=== PATIENT | male | born 1940 | race Caucasian/White ===

== ENCOUNTER 2016-10-15 17:12 | Observation (INO) ==
--- NOTE | 2016-10-15 17:44 | Emergency Department Note ---
Disposition Clinical Impression: Cellulitis of leg, left, Superficial thrombophlebitis of left leg Disposition: Admitted As Inpatient Condition: Fair Referrals: Isidra Tate, [employer]AL[employer]OL [employer] TECHNICIAN [Primary Care Provider] - Forms: ED Satisfaction Letter Time of Disposition: 18:33 Extremity Problem HPI - General Chief complaint: ED Extremity Problem,Nontraumatic Stated complaint: LLE Cellulitis/Fall/Sent from Doc. Harry Time Seen by Provider: 10/15/16 17:38 Source: patient Limitations: no limitations Nursing Notes Reviewed: Yes Vital Signs Reviewed: Yes - History of Present Illness HPI Narrative: 35-year-old fell 4 days ago injuring his left leg. Also family doctor today had an x-ray of the tib-fib which showed no debris or broken bones. He's got significant swelling and redness of the leg is warm to touch. Her for [place] for cellulitis. Patient has been on outpatient antibiotics and it is getting worse. 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 Consistency: constant Injury Location: left Pain Scale: 2 Quality: aching Radiation: none Improves with: nothing Worsens with: palpation Associated symptoms: Reports: denies other symptoms - Related Data Home Medications Medication Instructions Recorded Confirmed Ergocalciferol (VITAMIN D2) 50,000 unit PO QWEEK 10/29/15 01/17/16 [Vitamin D2 (50,000 UNIT)] Folic Acid/Vit Bcomp,C [Renal-Edel 0.8 mg PO DAILY 10/29/15 01/17/16 Tablet] Furosemide [Lasix] 40 mg PO BID 10/29/15 01/17/16 Insulin Glargine [Lantus] 25 unit SQ HS 10/29/15 01/17/16 Simvastatin [Zocor] 40 mg PO HS 10/29/15 01/17/16 Thiamine Mononitrate [Vitamin B-1] 100 mg PO DAILY 10/29/15 01/17/16 Atenolol [Tenormin] 1.5 tab PO DAILY 01/17/16 01/17/16 Docusate Sodium [Stool Softener] 100 mg PO DAILY PRN 01/17/16 01/17/16 Previous Rx's Medication Instructions Recorded Ferrous Sulfate 325 mg PO BID #60 tablet 11/14/15 Allergies Allergy/AdvReac Type Severity Reaction Status Date / Time Penicillins Allergy Rash Verified 11/04/15 10:03 Sulfa (Sulfonamide Allergy Rash Verified 11/04/15 10:03 Antibiotics) acetaminophen [From Percocet] AdvReac Hallucinati Verified 11/04/15 10:03 ng Oxycodone [From Percocet] AdvReac Hallucinati Verified 11/04/15 10:03 ng All systems ED: reviewed and negative except as stated. Constitutional: Denies: fever, chills, weakness, weight change Eyes: Denies: eye pain, eye discharge, vision change ENT ED: Denies: ear pain, throat pain, dental pain, hearing loss, epistaxis, congestion, dysphagia Cardiovascular: Denies: chest pain, palpitations, dyspnea on exertion, edema, syncope Respiratory: Denies: cough, dyspnea, wheezes, hemoptysis, stridor Gastrointestinal: Denies: abdominal pain, nausea, vomiting, diarrhea, constipation, hematemesis, melena, hematochezia Genitourinary: Denies: urgency, dysuria, frequency, hematuria Musculoskeletal: Reports: arthralgia. Denies: back pain, neck pain, myalgia Integumentary: Denies: rash, abrasion, lesions Neurological: Denies: headache, weakness, numbness, paresthesias, confusion, abnormal gait, vertigo Psychiatric: Denies: anxiety, depression, suicidal thoughts, homicidal thoughts , auditory hallucinations, visual hallucinations Endocrine: Denies: fatigue Hematological/Lymphatic: Denies: easy bleeding, easy bruising Allergic/Immunologic: Denies: facial swelling, urticaria Past Medical History - Past Medical History Medical history: Reports: CHF, CVA, diabetes, dialysis, renal disease Surgical history: Reports: appendectomy, cholecystectomy, other Psychiatric history: Reports: no psych history - Social History Smoking Status: Current every day smoker Smokeless Tobacco Status: No Alcohol use: Reports: rarely, occasionally Drug use: Reports: none Physical Exam - General Limitations: no limitations General appearance: alert, in no apparent distress - Head Head exam: atraumatic, normocephalic, normal inspection - Eye Eye exam: Present: normal appearance, PERRL, EOMI - ENT ENT exam: normal exam, normal oropharynx, mucous membranes moist - Neck Neck exam: Present: normal inspection, full ROM, trachea midline - Chest Chest inspection: Present: normal inspection, symmetric chest wall rise - Respiratory Respiratory exam: Present: normal lung sounds bilaterally - Cardiovascular Cardiovascular exam: Present: regular rate, normal rhythm, normal heart sounds - Abdominal Exam Abdominal exam: Present: soft, Non-Tender. Absent: tenderness, distention, guarding, rebound, rigidity - Expanded Lower Extremity Exam Lower leg exam: Present: tenderness, swelling, erythema Neurovascular/Tendon exam: Absent: motor deficit, sensory deficit, tendon deficit Gait: observed and normal - Back Exam Back exam: Present: normal inspection, full ROM. Absent: tenderness - Neurological Exam Neurological exam: Present: alert, oriented X3 - Psychiatric Psychiatric exam: Present: normal affect, normal mood - Skin Skin exam: Present: warm, dry, intact, normal color Course - Reevaluation(s) Reevaluation #1: 75-year-old who had a fall with injury to the right leg he had some cellulitis started on antibiotics as got worse. Time: 18:33 - Consultations Consultation #1: Discussed with pharmacy recommendations obtained for vancomycin dosing at 1500 mg and they will check a level and redosed. Time: 18:29 Consultation #2: Discussed with janet Lainez. Time: 18:29 Vital Signs Temperature 98.2 F 10/15/16 17:32 Pulse Rate 78 10/15/16 17:32 Respiratory Rate 16 10/15/16 17:32 Blood Pressure 166/66 10/15/16 17:32 O2 Sat by Pulse Oximetry 95 10/15/16 17:32 Temperature 98.2 F 10/15/16 17:32 Pulse Rate 78 10/15/16 17:32 Respiratory Rate 16 10/15/16 17:32 Blood Pressure 166/66 10/15/16 17:32 O2 Sat by Pulse Oximetry 95 10/15/16 17:32 Oxygen Delivery Oxygen Delivery Room Air Extremity Problem, Nontraumati - Lab Data Result diagrams: 10/15/16 18:02 10/15/16 18:02 Lab Results 10/15/16 10/15/16 10/15/16 Range/Units 18:02 18:02 18:02 WBC 5.5 (4.3-11.1) K/mcL RBC 3.08 L (4.19-5.50) M/mcL Hgb 10.4 L (12.9-16.9) g/dL Hct 31.9 L (37.5-50.1) % MCV 103.6 H (83.0-100.0) fL MCH 33.8 H (28.0-33.3) pg MCHC 32.6 (31.6-35.5) g/dL RDW 14.6 H (11.5-14.5) % Plt Count 79 L (140-400) K/mcL MPV 10.1 (9.4-12.4) fL Immature Gran % 0.4 (0-4) % Seg Neutrophils % 72.2 % Lymphocytes % 10.7 % Monocytes % 9.1 % Eosinophils % 7.2 % Basophils % 0.4 % Neutrophils # 4.0 (1.6-8.9) K/mcL Lymphocytes # 0.6 (0.6-4.6) K/mcL Monocytes # 0.5 (0.0-1.3) K/mcL Eosinophils # 0.4 (0.0-0.6) K/mcL Basophils # 0.0 (0.0-0.2) K/mcL ESR 48 H (0-10) mm/hr Sodium 138 (136-145) mEq/L Potassium 4.3 (3.5-4.5) mEq/L Chloride 99 (98-109) mEq/L Carbon Dioxide 34 H (19-29) mEq/L BUN 23 (8-26) mg/dL Creatinine 4.34 H (0.72-1.25) mg/dL Est GFR ( Amer) 16 L (> 60) Est GFR (Non-Af Amer) 13 L (> 60) BUN/Creatinine Ratio 5 L (6-26) Glucose 222 H (70-99) mg/dL Calculated Osmolality 297 (280-300) Calcium 8.7 (8.6-10.8) mg/dL - Radiology Data Radiology results reviewed: Yes I reviewed the patient's radiology results. Venous Doppler shows a superficial thrombophlebitis
[2016-10-15 18:12] LABS: Basophils % 0.4 %; Eosinophils # 0.4 K/mcL (0.0-0.6); Eosinophils % 7.2 %; Hematocrit 31.9 % (37.5-50.1); Hemoglobin 10.4 g/dL (12.9-16.9); Immature Granulocytes % 0.4 % (0-4); Lymphocytes # 0.6 K/mcL (0.6-4.6); Lymphocytes % 10.7 %; Mean Corpuscular HGB Conc 32.6 g/dL (31.6-35.5); Mean Corpuscular Hemoglobin 33.8 pg (28.0-33.3); Mean Corpuscular Volume 103.6 fL (83.0-100.0); Mean Platelet Volume 10.1 fL (9.4-12.4); Monocytes # 0.5 K/mcL (0.0-1.3); Monocytes % 9.1 %; Red Blood Count 3.08 M/mcL (4.19-5.50); Red Cell Distribution Width 14.6 % (11.5-14.5); Segmented Neutrophils % 72.2 %
[2016-10-15 18:13] LABS: Platelet Count 79 K/mcL (140-400)
[2016-10-15 18:20] LABS: Calcium 8.7 mg/dL (8.6-10.8); Potassium 4.3 mEq/L (3.5-4.5)
[2016-10-15] MEDS ORDERED: Vancomycin 1,500 MG in D5% in Water 250 ML IVPB ONE (19:00)
--- NOTE | 2016-10-15 19:01 | Venous Imaging Report ---
LE Venous Duplex Patient Name:Ousmane Whitlock Order Number:[id number] Procedure Date:10/15/2016 Date:1940ge:75 yrs Gender:Male Location:[facility] ED Room #: ER10 Acting Instructor:Tracie Zimmerman RDCS Referring MD:Chris Doshi MD employment consultant:Chris Doshi MD Reading MD:Giuseppe Saenz MD Primary Indications:Swelling of limb Secondary Indications: Impressions: Normal left lower extremity deep venous exam. The left greater saphenous vein has acute superficial venous thrombosis. Normal contralateral common femoral vein. Recommendations: Test completed on 10/15/2016 at 6:39:00 pm. Critical findings reported to Dr Doshi in person at 6:45:00 pm on 10/15/2016 by Tracie Zimmerman RDCS. Findings Venous Duplex Results: Left: Venous imaging of the lower extremity reveals full patency and normal vessel compressibility of the left distal iliac, left common femoral, left superficial femoral, left popliteal and left posterior tibial. Doppler signals in the evaluated veins were normal. There is an occlusive thrombus seen in the left distal great saphenous. Prior Study: No prior study available for comparison. Lower Extremity Venous Duplex Side Vein Compress Spontaneous Flow Augment Diameter (cm) Depth (cm) Left Distal Iliac Normal Yes Phasic Yes Left Common Femoral Normal Yes Phasic Yes Left Superficial Femoral Normal Yes Phasic Yes Left Popliteal Normal Yes Phasic Yes Left Posterior Tibial Normal Yes Phasic Yes Left Great Saphenous None no Absent no Left Lesser Saphenous Normal Yes Phasic Yes Updated by Giuseppe Saenz MD on 10/15/2016 6:56:41 PM electronically signed on 10/15/2016 6:57:04 PM with status of Final
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
[2016-10-15] MEDS ORDERED: Naloxone 0.4 MG/ML INJ IVP PRN (23:17)
[2016-10-15] MEDS ORDERED: Ondansetron ODT 4 MG TAB.RAPDIS SL PRN (23:17)
[2016-10-15] MEDS ORDERED: Acetaminophen 325 MG TABLET PO PRN (23:17)
[2016-10-15] MEDS ORDERED: Vancomycin 1,500 MG in D5% in Water 250 ML IVPB SCH (23:45)
[2016-10-16 00:45] LABS: Basophils % 0.2 %; Eosinophils # 0.4 K/mcL (0.0-0.6); Eosinophils % 8.2 %; Hematocrit 27.5 % (37.5-50.1); Hemoglobin 8.9 g/dL (12.9-16.9); Immature Granulocytes % 0.2 % (0-4); Immature Platelets 2.9 % (1.1-6.1); Lymphocytes # 0.6 K/mcL (0.6-4.6); Lymphocytes % 11.8 %; Mean Corpuscular HGB Conc 32.4 g/dL (31.6-35.5); Mean Corpuscular Hemoglobin 33.3 pg (28.0-33.3); Mean Platelet Volume 10.2 fL (9.4-12.4); Monocytes # 0.5 K/mcL (0.0-1.3); Monocytes % 9.6 %; Neutrophils # 3.5 K/mcL (1.6-8.9); Red Blood Count 2.67 M/mcL (4.19-5.50); Red Cell Distribution Width 14.6 % (11.5-14.5)
[2016-10-16 00:48] LABS: Platelet Count 78 K/mcL (140-400)
[2016-10-16] MEDS ORDERED: *HR* Dextrose 50 % in Water (Syg) 50 ML SYRINGE IVP PRN (00:58)
[2016-10-16] MEDS ORDERED: D5% in Water 1,000 ML IVC PRN (00:58)
[2016-10-16] MEDS ORDERED: Dextrose Gel 15 GM PO PRN ×2 (00:58)
[2016-10-16] MEDS ORDERED: Cefepime HCl 1,000 MG in D5% in Water (Mini-Bag+) 100 ML IVPB SCH ×2 (06:00→14:00)
[2016-10-16] MEDS: *HR* Heparin 5,000 UNIT/ML VIAL SQ SCH ×2 (06:14→17:00)
[2016-10-16] MEDS: Insulin LISPRO 300 UNITS/3 ML VIAL SQ SCH ×3 (08:40→16:55)
[2016-10-16] MEDS ORDERED: Furosemide 40 MG TABLET PO SCH (09:45)
[2016-10-16] MEDS: Furosemide 40 MG TABLET PO SCH ×2 (10:19→17:00)
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
[2016-10-16] MEDS: Calcium Acetate 667 MG CAPSULE PO SCH ×2 (12:41→16:56)
[2016-10-16 14:40] LABS: Hemoglobin A1C 5.9 %
--- NOTE | 2016-10-16 16:34 | General Surgery Consult Note ---
<Ludy Hwang - Last Filed: 10/16/16 16:27> Date of Encounter: 10/16/16 Time of Encounter: 16:00 Assessment and Plan (1) Hematoma of left lower extremity Current Visit: Yes Status: Acute Risks, benefits, alternatives, expected outcomes reviewed with the patient has agreed to proceed to the operating room with Dr. Carreon for a evacuation of hematoma of left lower extremity and wound debridement Nothing by mouth for procedure Continue IV antibiotics- Vancomycin and Cefipime We will continue to follow further wound care recommendations Patient will need outpatient follow-up and wound care when ready for discharge Qualifiers: Encounter type: initial encounter Qualified Code(s): S80.12XA - Contusion of left lower leg, initial encounter (2) Cellulitis of leg, left Current Visit: Yes Status: Acute IV antibiotics- Vancomycin and Cefepime Evacuation of the hematoma and would debridement today with Dr. 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 Whitlock is a very pleasant 75 year old male with multiple comorbidities. He reports to the hospital with pain and increasing redness to his LLE after a recent fall. He states that he fell off of his porch approximately 1 week ago. He had an abrasion on his LLE and developed a hematoma at that time. He states that he fell approximately 2 feet. His has been dressing the wound daily. She states that it drained a small amount of blood for a few days but that this has stopped. She reports that the LLE has become increasingly tender and erythematous over the past few days. The patient states that he does have numbness to his LLE but that this is chronic for him due to his neuropathy. He denies any fevers/chills. Denies any syncope, dizziness, chest pain, or shortness of breath. We have been asked to see and evaluate the patient for recommendations for treatment. Past Med Surg Social Fam HX - Past Medical History Source: patient, old records reviewed Medical history: cardiomyopathy, CHF, coronary artery disease, CVA, diabetes ( Type 2), dialysis, hyperlipidemia, hypertension, myocardial infarction, renal disease (ESRD), other (sleep apnea, lung nodule, neuropathy, legally blind) Psychiatric history: no psych history - Past Surgical History Surgical History: appendectomy, cholecystectomy, orthopedic, other (right rotator cuff repair), other (multiple colonoscopies, fistula to left arm for dialysis) - Social History Smoking Status: Current every day smoker Smokeless Tobacco Status: No Alcohol use: rarely Drug use: none - Family History Mother Hx Family Endocrine Disorder: Yes (diabetes) Hx Family Neurologic Disorders: Yes (stroke and alzheimer) Medications and Allergies Folic Acid/Vit Bcomp,C [Renal-Edel Tablet] 0.8 mg PO DAILY 10/29/15 [History] Furosemide [Lasix] 40 mg PO AD 10/29/15 [History] Insulin Glargine [Lantus] 12 unit SQ HS 10/29/15 [History] Simvastatin [Zocor] 40 mg PO HS 10/29/15 [History] Calcium Acetate [Phos-LO] 1,334 mg PO TIDWM 10/15/16 [History] Insulin LISPRO [HumaLOG] 0 unit SQ TIDWM 10/15/16 [History] cephALEXin [Keflex] 500 mg PO TID 10/15/16 [History] Allergies Penicillins Allergy (Verified 11/04/15 10:03) Rash Sulfa (Sulfonamide Antibiotics) Allergy (Verified 11/04/15 10:03) Rash acetaminophen [From Percocet] Adverse Reaction (Verified 11/04/15 10:03) Hallucinating Oxycodone [From Percocet] Adverse Reaction (Verified 11/04/15 10:03) Hallucinating Review of Systems All systems PM: reviewed and no additional remarkable complaints except as stated (in the HPI) All systems PM: A 10-system review of systems was performed and is negative for pertinent findings except as documented above in the HPI. General Surgery Exam Initial Vital Signs Temp Pulse Resp BP Pulse Ox 98.2 F 78 16 166/66 95 10/15/16 17:32 10/15/16 17:32 10/15/16 17:32 10/15/16 17:32 10/15/16 17:32 - General physical appearance well developed, well nourished, no distress, moderate pain (LLE) - Eyes PERRL - ENT normal mucosa, atraumatic, normocephalic - Neck trachea midline - Respiratory normal respiratory effort, clear to auscultation - Cardiovascular Cardiovascular exam: Present: RRR - Abdomen Abdomen general surgery: Present: bowel sounds present, soft, non tender - Integumentary Integumentary general surgery: Present: warm and dry, other (LLE with hematoma noted with surrounding cellulitis/erythema, necrotic skin noted over hematoma, skin warm to touch, tender to evaluation) - Neurologic Present: CN 2-12 grossly intact - Psychiatric Psychiatric general surgery: Present: appropriate, oriented to person, oriented to place, oriented to time, speech is normal, memory intact Exam Initial Vital Signs Temp Pulse Resp BP Pulse Ox 98.2 F 78 16 166/66 95 10/15/16 17:32 10/15/16 17:32 10/15/16 17:32 10/15/16 17:32 10/15/16 17:32 Results - Labs 10/16/16 00:27 10/15/16 18:02 Abnormal lab results RBC 2.67 M/mcL (4.19-5.50) L 10/16/16 00:27 Hgb 8.9 g/dL (12.9-16.9) L D 10/16/16 00:27 Hct 27.5 % (37.5-50.1) L 10/16/16 00:27 MCV 103.0 fL (83.0-100.0) H 10/16/16 00:27 RDW 14.6 % (11.5-14.5) H 10/16/16 00:27 Plt Count 78 K/mcL (140-400) L 10/16/16 00:27 ESR 48 mm/hr (0-10) H 10/15/16 18:02 Carbon Dioxide 34 mEq/L (19-29) H 10/15/16 18:02 Creatinine 4.34 mg/dL (0.72-1.25) H 10/15/16 18:02 Est GFR ( Amer) 16 (> 60) L 10/15/16 18:02 Est GFR (Non-Af Amer) 13 (> 60) L 10/15/16 18:02 BUN/Creatinine Ratio 5 (6-26) L 10/15/16 18:02 Glucose 222 mg/dL (70-99) H 10/15/16 18:02 POC Glucose 140 (58-89) H 10/16/16 11:25 Hemoglobin A1c 5.9 % (-5.6) H 10/16/16 00:27 Diabetes panel 10/16/16 Range/Units 00:27 Hemoglobin A1c 5.9 H ( - 5.6) % All other labs normal. - Imaging Additional studies: Lower Extremity CT 10/16/16 23:28 IMPRESSION: Circumferential superficial soft tissue edema in the left leg. Areas of blood products and developing hematomas in the anterior superficial soft tissues of the leg. The areas of superficial soft tissue blood products measures 18 cm in craniocaudal dimension with the largest component measuring up to 6.4 x 5 x 2 cm. No intramuscular fluid collection. No acute osseous abnormality. D/ / 10/16/2016 08:09:14 Tejas Yepez MD / jagruti Interpreting Provider: Tejas Yepez MD Consult Discharge Plan - Plan Referrals: Isidra Tate, INTEGRATED PEST MANAGEMENT TECHNICIAN [Primary Care Provider] - - Attending Attestation I examined this patient and my medical decision-making was reviewed with the PLUGGER MAN/PA/Advanced Practice Nurse/Resident Physician. I agree with the documented findings, disposition and treatment plan as described except to the extent set forth below. <Aamir Carreon - Last Filed: 10/16/16 21:49> Date of Encounter: 10/16/16 Review of Systems All systems PM: A 10-system review of systems was performed and is negative for pertinent findings except as documented above in the HPI. General Surgery Exam Initial Vital Signs Temp Pulse Resp BP Pulse Ox 98.2 F 78 16 166/66 95 10/15/16 17:32 10/15/16 17:32 10/15/16 17:32 10/15/16 17:32 10/15/16 17:32 Exam Initial Vital Signs Temp Pulse Resp BP Pulse Ox 98.2 F 78 16 166/66 95 10/15/16 17:32 10/15/16 17:32 10/15/16 17:32 10/15/16 17:32 10/15/16 17:32 Results - Labs 10/16/16 00:27 10/15/16 18:02 Abnormal lab results RBC 2.67 M/mcL (4.19-5.50) L 10/16/16 00:27 Hgb 8.9 g/dL (12.9-16.9) L D 10/16/16 00:27 Hct 27.5 % (37.5-50.1) L 10/16/16 00:27 MCV 103.0 fL (83.0-100.0) H 10/16/16 00:27 RDW 14.6 % (11.5-14.5) H 10/16/16 00:27 Plt Count 78 K/mcL (140-400) L 10/16/16 00:27 ESR 48 mm/hr (0-10) H 10/15/16 18:02 Carbon Dioxide 34 mEq/L (19-29) H 10/15/16 18:02 Creatinine 4.34 mg/dL (0.72-1.25) H 10/15/16 18:02 Est GFR ( Amer) 16 (> 60) L 10/15/16 18:02 Est GFR (Non-Af Amer) 13 (> 60) L 10/15/16 18:02 BUN/Creatinine Ratio 5 (6-26) L 10/15/16 18:02 Glucose 222 mg/dL (70-99) H 10/15/16 18:02 POC Glucose 172 (58-89) H 10/16/16 16:25 Hemoglobin A1c 5.9 % (-5.6) H 10/16/16 00:27 Diabetes panel 10/16/16 Range/Units 00:27 Hemoglobin A1c 5.9 H ( - 5.6) % All other labs normal. - Attending Attestation The patient is seen and evaluated with the clinical nurse practitioner. He has complex hematoma secondary to trauma and coagulopathy secondary to end-stage renal disease and chronic dialysis. The overlying skin is beginning to necrosis and he will require evacuation of hematoma in the main operating room later tonight. Aamir Carreon MD FACS
--- NOTE | 2016-10-16 16:53 | Internal Med Progress Note ---
<TamraannaliseRomeo castaneda - Last Filed: 10/16/16 16:49> Date of Encounter: 10/16/16 Time of Encounter: 09:30 - Assessment and plan (1) Cellulitis of leg, left Current Visit: Yes Status: Acute Assessment and plan: - Patient is afebrile, white blood cell count of 5.0 - Lactic acid of 0.6 - Wound and blood cultures pending - LRINEC score 5 - CT scan revealed off tissue swelling circumferentially, and area of blood products extending for 18 cm. - Patient is currently receiving cefepime 1 g and vancomycin - Surgery was consulted for possibility of abscess, hematoma. Plan for hematoma evacuation and debridement. (2) Hematoma of left lower extremity Current Visit: Yes Status: Acute Assessment and plan: - As above, surgery is planning to evacuate hematoma - H&H stable, 8.1/27.5 - MCV was elevated, indicating a macrocytic anemia - Patient will be given folic acid Qualifiers: Encounter type: initial encounter Qualified Code(s): S80.12XA - Contusion of left lower leg, initial encounter (3) ESRD (end stage renal disease) on dialysis Current Visit: Yes Status: Chronic Assessment and plan: Patient receives Thursday dialysis - BUN/creatinine of 23/4.34 - Nephrology has been consulted (4) Diabetes mellitus Current Visit: Yes Status: Chronic Assessment and plan: - A1c pending, most recent in October 2015 was 6.9 - Glucose this a.m. 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 - We will complete dialysis tomorrow Qualifiers: Hypertension type: essential hypertension Qualified Code(s): I10 - Essential (primary) hypertension (6) Thrombocytopenia Current Visit: No Status: Chronic Assessment and plan: - Platelet count of 78 this morning, was 80 and emergency room - We will continue to monitor and replenish if needed. - Time Spent With Patient Greater than 35 minutes - Subjective Interval history: Patient seen and examined at bedside this morning. He states that his leg is feeling fine, with no pain. He does admit to having to decrease sensation over the area due to his diabetic neuropathy. He does admit to some warmth in the area. He does not notice any drainage. He is denying any symptoms of fever, chills, abdominal pain, nausea, vomiting, chest pain, shortness of breath. - Constitutional Vitals: Temp Pulse Resp BP Pulse Ox 98.2 F 82 16 162/75 91 10/16/16 16:23 10/16/16 16:23 10/16/16 16:23 10/16/16 16:23 10/16/16 16:23 Exam: Gen.: Vitals noted. No acute distress. AAOx3 HEENT: Legally blind with poor eye contact. PERRL/EOMI, oropharynx clear, Normocephalic, atraumatic Neck: Supple. No adenopathy. Cardiac: RRR, no murmur, +S1/S2 Pulmonary: CTA bilaterally, no wheezes, rales or rhonchi, equal chest expansion Abdomen: soft, nontender, BS noted, no guarding Back: Nontender throughout. MSK: ROM intact, no joint swelling noted Extremities: Marked erythema, warmth, edema of left lower extremity extending from proximal tibia to ankle. Multiple lacerations without drainage. Erythema is receding from previous marked border. no BLE edema, nontender calf, no cyanosis or clubbing Neuro: A&Ox3, moves all extremities, no focal deficits Psych: Appropriate mood and behavior Internal Medicine: Result - Labs CBC & Chem 7: 10/16/16 00:27 10/15/16 18:02 Labs: Short CBC 10/16/16 Range/Units 00:27 WBC 5.0 (4.3-11.1) K/mcL Hgb 8.9 L D (12.9-16.9) g/dL Hct 27.5 L (37.5-50.1) % Plt Count 78 L (140-400) K/mcL Neutrophils # 3.5 (1.6-8.9) K/mcL - Impressions Impressions Lower Extremity CT 10/16/16 23:28 IMPRESSION: Circumferential superficial soft tissue edema in the left leg. Areas of blood products and developing hematomas in the anterior superficial soft tissues of the leg. The areas of superficial soft tissue blood products measures 18 cm in craniocaudal dimension with the largest component measuring up to 6.4 x 5 x 2 cm. No intramuscular fluid collection. No acute osseous abnormality. D/ /16/2016 08:09:14 Tejas Yepez MD / jagruti Interpreting Provider: Tejas Yepez MD Consult Discharge Plan - Plan Referrals: Isidra Tate CNP [Primary Care Provider] - <Feliciano Trammell - Last Filed: 10/16/16 17:11> Date of Encounter: 10/16/16 - Constitutional Vitals: Temp Pulse Resp BP Pulse Ox 98.2 F 82 16 162/75 91 10/16/16 16:23 10/16/16 16:23 10/16/16 16:23 10/16/16 16:23 10/16/16 16:23 Internal Medicine: Result - Labs CBC & Chem 7: 10/16/16 00:27 10/15/16 18:02 Labs: Short CBC 10/16/16 Range/Units 00:27 WBC 5.0 (4.3-11.1) K/mcL Hgb 8.9 L D (12.9-16.9) g/dL Hct 27.5 L (37.5-50.1) % Plt Count 78 L (140-400) K/mcL Neutrophils # 3.5 (1.6-8.9) K/mcL - Impressions Impressions Lower Extremity CT 10/16/16 23:28 IMPRESSION: Circumferential superficial soft tissue edema in the left leg. Areas of blood products and developing hematomas in the anterior superficial soft tissues of the leg. The areas of superficial soft tissue blood products measures 18 cm in craniocaudal dimension with the largest component measuring up to 6.4 x 5 x 2 cm. No intramuscular fluid collection. No acute osseous abnormality. D/ / 10/16/2016 08:09:14 Tejas Yepez MD / jagruti Interpreting Provider: Tejas Yepez MD - Attending Attestation I examined this patient and my medical decision-making was reviewed with the Resident Physician on 10/16/16. I agree with the documented findings, disposition and treatment plan as described except to the extent set forth below. 75 M with legal blindness, DM, complicated with retinopathy, nephropathy, neuropathy, ESRD on HD, admitted for LLE cellulitis with abscess/hematoma following trauma Seen and evaluated at bedside with no new complains Physical exam: VSS. Left lower extremity with redness from the knee up to the ankle, fluctuancy and softness in the center extending to the ankle, obvious hyperpigmentation of skin due to hematoma and visible entry wounds. Left dorsalis pedis is present Labs and Imaging reviewed: Chronic macrocytic anemia, no leukocytosis, chronic thrombocytopenia, Doppler of LE with superficial venous thrombosis of great saphenous vein, Lower L extremity CT with 18cm collection-hematoma/blood products A/P: cellulitis with suspected abscess and hematoma-continue vanco and cefepime , consult surgery for possible drainage, follow blood culture, and resume home meds. No indication for treatment for superficial venous thrombosis. HD as scheduled by renal Fall precautions, patient is legally blind Rest of details as in residents documentation.
--- NOTE | 2016-10-16 19:00 | Anesthesia Evaluation PreOp ---
Date of Encounter: 10/16/16 Time of Encounter: 18:58 - Past History Planned Operation: I&D LLE Cardiac History: DE, CHF (cardiomyopathy. pt has h/o chf, nl echo 18 mos ago, mild bilat le edema, +systolic murmur), HTN, Hyperlipidemia, Other ( thrombocytopenia, anemia. 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 History: CVA ("a long time ago" never saw md, mild numbness in r cheek, resolved), Other (neuropathy, legally blind, severe bilat le periph neuropathy, able to ambulate with walker) Other Medical History: Renal (esrd, dialysis m/w/f), Diabetes Type II Anesthesia History: No Prior Anesthetic Complications, Past Anesthesia (r shoulder arth, lue fistula, appy, cholecyst) Alcohol Use: rarely Drug use: none Medications and Allergies Folic Acid/Vit Bcomp,C [Renal-Edel Tablet] 0.8 mg PO DAILY 10/29/15 [History] Furosemide [Lasix] 40 mg PO AD 10/29/15 [History] Insulin Glargine [Lantus] 12 unit SQ HS 10/29/15 [History] Simvastatin [Zocor] 40 mg PO HS 10/29/15 [History] Calcium Acetate [Phos-LO] 1,334 mg PO TIDWM 10/15/16 [History] Insulin LISPRO [HumaLOG] 0 unit SQ TIDWM 10/15/16 [History] cephALEXin [Keflex] 500 mg PO TID 10/15/16 [History] Allergies Penicillins Allergy (Verified 11/04/15 10:03) Rash Sulfa (Sulfonamide Antibiotics) Allergy (Verified 11/04/15 10:03) Rash acetaminophen [From Percocet] Adverse Reaction (Verified 11/04/15 10:03) Hallucinating Oxycodone [From Percocet] Adverse Reaction (Verified 11/04/15 10:03) Hallucinating - Meds/Allergy Pre-op Review Medications Reviewed: Yes (cefepime at 1546, dosed q24) Allergies Reviewed: Yes Beta Blockers on Current Med List: Yes (atenolol listed on home meds in 07/21) Anesthesia Results - Labs 10/16/16 00:27 10/15/16 18:02 - Imaging EKG: report reviewed (sb,lvh 10/19) Anesthesia Exam Vital Signs/O2 Sat/Glucose, Most Current Temp Pulse Resp BP Pulse Ox 10/16/16 16:23 98.2 F 82 16 162/75 91 Blood glucose: 172 (at 16:23) Height: 1.77 Weight: 96 NPO (# of Hours): >8 - HEENT Pupil (Motor): Pupils equal, EOMI Mallampati: III Teeth: Edentulous Oral Opening: Greater than 3 - HEALTH INFORMATION CLERK LOC: Oriented HEALTH INFORMATION CLERK Motor: Deficit RUE, Deficit LUE, Deficit RLE, Deficit LLE, Deficit Face HEALTH INFORMATION CLERK Sensory: Deficit: RUE, LUE, RLE, LLE, Face - Cardiac Rhythm: Regular Murmur: Systolic JVD: No Carotid Bruit: No - Pulmonary Breath Sounds: bilateral Clear Respiratory Effort: Symmetrical Anesthesia Assess/Plan ASA Score: 4 (minimize iv fluid, min narcotic, pt already on abx,) Modified [place] Scale for Level of Consciousness: Cooperative, oriented, and tranquil Anesthetic Plan: General Monitoring Plan: Standard Monitors Recovery Plan: PACU
[2016-10-16] MEDS ORDERED: *HR* HYDROmorphone (PF) 1 MG/ML SYRINGE IVP PRN (20:23)
[2016-10-16] MEDS ORDERED: *HR* FentaNYL (PF) 100 MCG/2 ML VIAL ONE (20:29)
[2016-10-16] MEDS ORDERED: *HR* Propofol 200 MG/20 ML VIAL IVP ONE (20:29)
[2016-10-16] MEDS ORDERED: 0.9 % Sodium Chloride 1,000 ML IVC SCH (20:30)
[2016-10-16] MEDS ORDERED: Lidocaine -MPF 2% 2 ML VIAL ONE (20:31)
[2016-10-16] MEDS ORDERED: Dexamethasone 4 MG/ML VIAL ONE (20:53)
[2016-10-16] MEDS ORDERED: Ondansetron 4 MG/2 ML VIAL ONE (20:53)
[2016-10-16] MEDS ORDERED: Insulin DETEMIR 100 UNIT/ML X5UNITS SQ SCH ×2 (21:00)
[2016-10-16] MEDS ORDERED: Insulin LISPRO 300 UNITS/3 ML VIAL SQ SCH (21:00)
--- NOTE | 2016-10-16 21:18 | Operative Note ---
Date of procedure: 10/16/16 Pre-op diagnosis: Hematoma left lower extremity Post-op diagnosis: same Procedure: Evacuation of hematoma left lower extremity Anesthesia: JOSE F Surgeon: Aamir Carreon Estimated blood loss (cc): 50 Specimen: Hematoma Condition: stable Disposition: PACU Procedure in Detail: After informed consent patient was taken major operating suite placed in supine position given adequate general anesthetic. The left lower extremity was circumferentially prepped and draped in sterile fashion utilizing Betadine solution and standard draping techniques. Timeout was taken and the lateralizing mikey identified. Using a #15 blade I opened directly in the upper hematoma. I removed an enormous amount of subcutaneous hematoma. This was completely evacuated. The hematoma cavity was at least 14 cm x 7 cm in size. There was a secondary hematoma cavity above the lateral malleolus. I made a secondary incision above this hematoma and entered into a 10 cm x 5 cm cavity full of organizing hematoma. This was completely evacuated. Both wounds were irrigated with copious amount of antibiotic containing solution. Both wounds were packed with iodoform and a compression dressing was used for hemostasis.
--- NOTE | 2016-10-16 21:52 | Anesthesia Evaluation Post Op ---
Date of Encounter: 10/16/16 Time of Encounter: 21:51 - Vital Signs Vital Signs: Vital Signs/O2 Sat/Glucose, Most Current Temp Pulse Resp BP Pulse Ox 10/16/16 21:49 99.0 F 77 18 145/66 96 10/16/16 21:39 79 18 144/73 93 10/16/16 21:29 81 16 151/74 93 10/16/16 21:19 98.8 F 80 16 139/66 93 - Lungs Lungs: Clear Ascult./Percussion - Airway Airway: Non-obstructed - Cardiovascular Regular Rate - Mental Status Mental Status: Alert & Oriented, Answers Appropriately - Pain Pain Scale: 0 - Nausea Vomiting Nausea Vomiting: Not Present - Hydration Hydration: Ice chips - Discharge PostOp Status: Transfer Patient to floor
[2016-10-17] MEDS ORDERED: D5% in Water 1,000 ML IVC PRN (02:44)
[2016-10-17] MEDS ORDERED: Dextrose Gel 15 GM PO PRN ×2 (02:44)
[2016-10-17] MEDS ORDERED: Ondansetron ODT 4 MG TAB.RAPDIS SL PRN (02:44)
[2016-10-17] MEDS ORDERED: *HR* HYDROmorphone (PF) 1 MG/ML SYRINGE IVP PRN (02:44)
[2016-10-17] MEDS ORDERED: 0.9 % Sodium Chloride 1,000 ML IVC SCH (02:44)
[2016-10-17] MEDS ORDERED: *HR* Dextrose 50 % in Water (Syg) 50 ML SYRINGE IVP PRN (02:44)
[2016-10-17] MEDS ORDERED: Acetaminophen 325 MG TABLET PO PRN (02:44)
[2016-10-17] MEDS ORDERED: Naloxone 0.4 MG/ML INJ IVP PRN (02:44)
[2016-10-17] MEDS: *HR* Heparin 5,000 UNIT/ML VIAL SQ SCH ×2 (05:42→18:22)
[2016-10-17 06:30] LABS: Hemoglobin 9.2 g/dL (12.9-16.9); Immature Platelets 3.6 % (1.1-6.1); Mean Corpuscular HGB Conc 31.7 g/dL (31.6-35.5); Mean Corpuscular Hemoglobin 33.5 pg (28.0-33.3); Mean Corpuscular Volume 105.5 fL (83.0-100.0); Mean Platelet Volume 10.4 fL (9.4-12.4); Red Blood Count 2.75 M/mcL (4.19-5.50); Red Cell Distribution Width 14.5 % (11.5-14.5)
[2016-10-17 06:37] LABS: Calcium 8.6 mg/dL (8.6-10.8); Potassium 5.4 mEq/L (3.5-4.5)
[2016-10-17] MEDS ORDERED: 0.9 % Sodium Chloride 250 ML IVC PRN (08:33)
[2016-10-17] MEDS ORDERED: 0.9 % Sodium Chloride 1,000 ML PRIME SCH (08:45)
[2016-10-17] MEDS ORDERED: 0.9 % Sodium Chloride 2,000 ML ONE (09:00)
[2016-10-17] MEDS ORDERED: Renal Vitamin 1 MG CAPSULE PO SCH (09:00)
--- NOTE | 2016-10-17 09:14 | General Surgery Progress Note ---
<Ludy Hwang Maikel - Last Filed: 10/17/16 09:12> Date of Encounter: 10/17/16 Time of Encounter: 09:00 - Assessment and Plan (1) Hematoma of left lower extremity Current Visit: Yes Status: Acute POD #1 Evacuation of LLE hematoma X [address] a wound vac to LLE today family services worker consulted for wound vac approval and home health care Renal Diet Continue IV antibiotics- Vancomycin and Cefipime (no cultures obtained- no purulent component to fluid collections which were evacuated) May discharge from a surgical standpoint when medically ready Patient will need outpatient follow-up and wound care when ready for discharge Surgery will sign off at this time. Thank you for allowing us to participate in the care of this patient. Please call with any further questions or concerns. Qualifiers: Encounter type: initial encounter Qualified Code(s): S80.12XA - Contusion of left lower leg, initial encounter (2) Cellulitis of leg, left Current Visit: Yes Status: Acute IV antibiotics- Vancomycin and Cefepime- management per hospitalist POD #1 evacuation of hematoma X 2 (3) Thrombocytopenia Current Visit: No Status: Chronic Platelets- 78>77 Continue to monitor (4) ESRD (end stage renal disease) on dialysis Current Visit: Yes Status: Chronic Renal following Dialysis every MWF (5) Diabetes mellitus Current Visit: Yes Status: Chronic Management per medicine service Most recent Hemoglobin A1C- 5.9 Qualifiers: Diabetes mellitus type: type 2 Diabetes mellitus complication status: with kidney complications Diabetes mellitus complication detail: with chronic kidney disease Diabetes mellitus usp insulin use: with continuous churn buttermaker use Chronic kidney disease stage: on chronic dialysis Qualified Code(s): E11.22 - Type 2 diabetes mellitus with diabetic chronic kidney disease; N18.6 - End stage renal disease; Z79.4 - senior care (current) use of insulin; Z99.2 - Dependence on renal dialysis Subjective Patient reports: no new complaints, feels better, pain is less, tolerating a regular diet, afebrile Objective Vital Signs - Last 8 Hours Temp Pulse Resp BP Pulse Ox 10/17/16 07:49 98 F 74 20 148/68 96 10/17/16 04:33 98.4 F 68 17 128/62 95 10/17/16 03:34 73 16 132/71 95 10/17/16 02:10 76 16 154/68 95 Intake and Output 07/13/17 07/14/17 07/14/17 23:59 07:59 15:59 Intake Total 0 / 0 350 / 350 380 / 380 Output Total 50 / 50 Balance -50 / -50 350 / 350 380 / 380 Intake: Oral 0 / 0 350 / 350 380 / 380 Output: Estimated Blood Loss 50 / 50 Other: Meal NPO Breakfast Percent of Meal Consumed 0% 100% Weight 96.2 kg Blood Glucose* 139 173 Patient Weight 10/17/16 23:59 Weight 96.2 kg - General physical appearance well developed, well nourished, no distress, chronically ill - Eyes PERRL - ENT normal mucosa, atraumatic, normocephalic - Neck Neck exam: trachea midline - Respiratory normal respiratory effort, clear to auscultation - Cardiovascular Cardiovascular exam: Present: RRR - Abdomen Abdomen: Present: bowel sounds present, soft, non tender - Incision Incision: Present: erythema (improved), serosanguinous (moderate amount), open - Neurologic CN 2-12 grossly intact, other (severe neuropathy of bilateral lower extremities) - Psychiatric oriented to time, oriented to person, oriented to place, speech is normal, memory intact - Labs 10/17/16 05:50 10/17/16 05:50 Diabetes panel 10/16/16 10/17/16 Range/Units 00:27 05:50 Sodium 135 L (136-145) mEq/L Potassium 5.4 H D (3.5-4.5) mEq/L Chloride 99 (98-109) mEq/L Carbon Dioxide 23 (19-29) mEq/L BUN 44 H D (8-26) mg/dL Creatinine 6.32 H (0.72-1.25) mg/dL Glucose 185 H (70-99) mg/dL Hemoglobin A1c 5.9 H ( - 5.6) % Calcium 8.6 (8.6-10.8) mg/dL Calcium panel 10/17/16 Range/Units 05:50 Calcium 8.6 (8.6-10.8) mg/dL Pituitary panel 10/17/16 Range/Units 05:50 Sodium 135 L (136-145) mEq/L Potassium 5.4 H D (3.5-4.5) mEq/L Chloride 99 (98-109) mEq/L Carbon Dioxide 23 (19-29) mEq/L BUN 44 H D (8-26) mg/dL Creatinine 6.32 H (0.72-1.25) mg/dL Glucose 185 H (70-99) mg/dL Calcium 8.6 (8.6-10.8) mg/dL Adrenal panel 10/17/16 Range/Units 05:50 Sodium 135 L (136-145) mEq/L Potassium 5.4 H D (3.5-4.5) mEq/L Chloride 99 (98-109) mEq/L Carbon Dioxide 23 (19-29) mEq/L BUN 44 H D (8-26) mg/dL Creatinine 6.32 H (0.72-1.25) mg/dL Glucose 185 H (70-99) mg/dL Calcium 8.6 (8.6-10.8) mg/dL - VTE Documentation of Mechanical Device: Intermittent pneumatic compression device Consult Discharge Plan - Plan Additional Instructions: Change Wound vac to LLE every M-W- (medium black foam to 125mmHG continuous suction) Referrals: Isidra Tate CNP [Primary Care Provider] - Aamir Carreon MD [Partnered Physician] - ([place] [facility] [phone] Will need a 2 week follow-up for management of LLE wounds) - Attending Attestation I have personally performed a face to face evaluation on this patient. I have reviewed and agree with the care plan. History and Exam by me shows: <Aamir Carreon - Last Filed: 10/17/16 17:22> Date of Encounter: 10/17/16 Objective Vital Signs - Last 8 Hours Temp Pulse Resp BP Pulse Ox 10/17/16 16:38 98.1 F 74 20 134/67 95 10/17/16 13:10 98.0 F 14 132/56 10/17/16 13:00 132/65 10/17/16 12:45 127/67 10/17/16 12:30 123/67 10/17/16 12:15 130/60 10/17/16 12:00 137/72 10/17/16 11:45 142/74 10/17/16 11:30 133/64 10/17/16 11:15 131/60 10/17/16 11:00 126/66 10/17/16 10:45 133/65 10/17/16 10:30 138/65 10/17/16 10:15 132/64 10/17/16 10:00 137/63 10/17/16 09:45 135/77 10/17/16 09:30 98.0 F 14 141/74 96 Intake and Output 10/17/16 10/17/16 10/17/16 07:59 15:59 23:59 Intake Total 350 / 350 980 / 980 Output Total 3600 / 3600 Balance 350 / 350 -2620 / -2620 Intake: Oral 350 / 350 380 / 380 Intake, Rinseback and 600 / 600 Flushes Output: Urine 0 / 0 Total Dialysis (HD) 3600 / 3600 Output Other: Meal Breakfast Percent of Meal Consumed 100% Weight 96.2 kg 96.2 kg Blood Glucose* 173 127 261 Hemodialysis Net Fluid 3000 Removed (mL) Patient Weight 10/17/16 23:59 Weight 96.2 kg - Labs 10/17/16 05:50 10/17/16 05:50 Diabetes panel 10/17/16 Range/Units 05:50 Sodium 135 L (136-145) mEq/L Potassium 5.4 H D (3.5-4.5) mEq/L Chloride 99 (98-109) mEq/L Carbon Dioxide 23 (19-29) mEq/L BUN 44 H D (8-26) mg/dL Creatinine 6.32 H (0.72-1.25) mg/dL Glucose 185 H (70-99) mg/dL Calcium 8.6 (8.6-10.8) mg/dL Calcium panel 10/17/16 Range/Units 05:50 Calcium 8.6 (8.6-10.8) mg/dL Pituitary panel 10/17/16 Range/Units 05:50 Sodium 135 L (136-145) mEq/L Potassium 5.4 H D (3.5-4.5) mEq/L Chloride 99 (98-109) mEq/L Carbon Dioxide 23 (19-29) mEq/L BUN 44 H D (8-26) mg/dL Creatinine 6.32 H (0.72-1.25) mg/dL Glucose 185 H (70-99) mg/dL Calcium 8.6 (8.6-10.8) mg/dL Adrenal panel 10/17/16 Range/Units 05:50 Sodium 135 L (136-145) mEq/L Potassium 5.4 H D (3.5-4.5) mEq/L Chloride 99 (98-109) mEq/L Carbon Dioxide 23 (19-29) mEq/L BUN 44 H D (8-26) mg/dL Creatinine 6.32 H (0.72-1.25) mg/dL Glucose 185 H (70-99) mg/dL Calcium 8.6 (8.6-10.8) mg/dL - Attending Attestation The patient is seen and evaluated on the floor. Negative pressure wound therapy is appropriate at this point I would be glad to follow up with the patient in wound care. Aamir Carreon MD FACS
[2016-10-17] MEDS: Insulin LISPRO 300 UNITS/3 ML VIAL SQ SCH ×4 (09:45→21:35)
[2016-10-17] MEDS: Renal Vitamin 1 MG CAPSULE PO SCH (09:50)
[2016-10-17] MEDS: Calcium Acetate 667 MG CAPSULE PO SCH ×3 (09:50→18:02)
--- NOTE | 2016-10-17 11:27 | Nephrology Progress Note ---
Date of Encounter: 10/17/16 Time of Encounter: 11:24 - Assessment and Plan (1) Cellulitis of leg, left Current Visit: Yes Status: Acute Per primary team. S/p I&D. Pain is controlled. (2) ESRD (end stage renal disease) on dialysis Current Visit: Yes Status: Chronic HD MWF. Patient seen on HD. Renal diet. Adjust medications for renal function. (3) Hypertension Current Visit: Yes Status: Chronic Blood pressure is controlled. Qualifiers: Hypertension type: essential hypertension Qualified Code(s): I10 - Essential (primary) hypertension (4) Anemia Current Visit: No Status: Acute Monitor hemoglobin. Transfuse as needed. Qualifiers: Anemia type: unspecified type Qualified Code(s): D64.9 - Anemia, unspecified Subjective Principal diagnosis: ESRD Interval history: Patient seen on dialysis. He has no new complaint. His pain is controlled. His review of systems otherwise is negative or stable. Objective - Vital Signs Vital signs: Vital Signs Temp Pulse Resp BP Pulse Ox 10/17/16 09:30 96 10/17/16 07:49 98 F 74 20 148/68 96 10/17/16 04:33 98.4 F 68 17 128/62 95 10/17/16 03:34 73 16 132/71 95 10/17/16 02:10 76 16 154/68 95 10/17/16 01:10 77 16 155/75 95 10/17/16 00:14 98.2 F 78 16 142/71 92 10/17/16 00:10 20 145/74 96 10/16/16 23:47 95 10/16/16 23:40 75 20 150/69 94 10/16/16 23:09 81 15 150/67 92 10/16/16 22:50 79 15 145/64 93 10/16/16 22:37 84 15 141/69 92 10/16/16 22:20 82 15 153/70 93 10/16/16 21:49 99.0 F 77 18 145/66 96 10/16/16 21:39 79 18 144/73 93 10/16/16 21:29 81 16 151/74 93 10/16/16 21:19 98.8 F 80 16 139/66 93 10/16/16 16:23 98.2 F 82 16 162/75 91 Intake and Output 0710/17/16 10/17/16 23:59 07:59 15:59 Intake Total 0 / 0 350 / 350 380 / 380 Output Total 50 / 50 0 / 0 Balance -50 / -50 350 / 350 380 / 380 Intake: Oral 0 / 0 350 / 350 380 / 380 Output: Urine 0 / 0 Estimated Blood Loss 50 / 50 Other: Meal NPO Breakfast Percent of Meal Consumed 0% 100% Weight 96.2 kg Blood Glucose* 139 173 Patient Weight 10/17/16 23:59 Weight 96.2 kg - General Appearance General appearance: Present: well-developed, well-nourished EENT: Present: ATNC Neck: Present: supple Additional Comments: Respirations are unlabored. Cardiology: Present: regular rate Dialysis Vascular Access: Arteriovenous Fistula Neurologic: Present: alert and oriented x3 Psychiatric: Present: mood/affect appropriate - Lab 10/17/16 05:50 10/17/16 05:50 Most recent lab results Calcium 8.6 mg/dL (8.6-10.8) 10/17/16 05:50 - VTE Documentation of Mechanical Device: Intermittent pneumatic compression device Consult Discharge Plan - Plan Additional Instructions: Change Wound vac to LLE every M-W- (medium black foam to 125mmHG continuous suction) Referrals: Aamir Carreon MD [Partnered Physician] - ([place] [facility] [phone] Will need a 2 week follow-up for management of LLE wounds) Isidra Tate CNP [Primary Care Provider] -
[2016-10-17] MEDS ORDERED: Cefepime HCl 1,000 MG in D5% in Water (Mini-Bag+) 100 ML IVPB SCH (14:00)
[2016-10-17] MEDS ORDERED: Vancomycin 1,000 MG in D5% in Water 250 ML IVPB ONE (14:00)
[2016-10-17] MEDS: Cefepime HCl 1,000 MG in D5% in Water (Mini-Bag+) 100 ML IVPB SCH (14:07)
--- NOTE | 2016-10-17 14:49 | Internal Med Progress Note ---
<CyndeeRomeo poe - Last Filed: 10/17/16 14:45> Date of Encounter: 10/17/16 Time of Encounter: 14:46 - Assessment and plan (1) Cellulitis of leg, left Current Visit: Yes Status: Acute Assessment and plan: -Improved since yesterday clinically. - Patient is afebrile, white blood cell count of 5.5 - Lactic acid of 0.6 in emergency department - CT scan revealed off tissue swelling circumferentially, and area of blood products extending for 18 cm. status post surgical debridement and evacuation of hematoma on 10/16. Patient has been ordered a wound VAC, he will need home health 3 times a week with nursing upon discharge. - Patient is currently receiving cefepime 1 g and vancomycin for cellulitis - Wound pathology sent from surgery awaiting results (2) Hematoma of left lower extremity Current Visit: Yes Status: Acute Assessment and plan: - As above, status post surgical evacuation of hematoma on 10/16 - H&H stable, 9.2/29.0 - MCV was elevated, indicating a macrocytic anemia, and replenished with full of acid, B12 vitamin from home medications Qualifiers: Encounter type: initial encounter Qualified Code(s): S80.12XA - Contusion of left lower leg, initial encounter (3) ESRD (end stage renal disease) on dialysis Current Visit: Yes Status: Chronic Assessment and plan: Patient receives Thursday dialysis - BUN/creatinine of 44/6.32 - Patient to dialysis this afternoon without complications - Nephrology is following for dialysis treatment (4) Diabetes mellitus Current Visit: Yes Status: Chronic Assessment and plan: - A1c was 5.9 - Glucose this a.m. was 1851 likely elevated in the setting of infection - Have adjusted home a insulins, improved since yesterday. 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 Qualifiers: Hypertension type: essential hypertension Qualified Code(s): I10 - Essential (primary) hypertension (6) Thrombocytopenia Current Visit: No Status: Chronic Assessment and plan: - Platelet count of 77 this morning, able from 78 yesterday - Chart review is a chronic condition, likely secondary to renal disease - We will continue to monitor and replenish if needed. - Time Spent With Patient 25 - 35 minutes - Subjective Interval history: Patient seen and examined at bedside this morning. He states that he went for surgery last night around 2100, and is currently feeling good. He has no complaints including erythema, edema, drainage, fevers, chills, shortness of breath, nausea, vomiting, chest pain. He does admit to some mild pain on this left lower extremity, he states this is improved since yesterday. - Constitutional Vitals: Temp Pulse Resp BP Pulse Ox 98.0 F 74 14 132/56 96 10/17/16 13:10 10/17/16 07:49 10/17/16 13:10 10/17/16 13:10 10/17/16 09:30 Exam: Gen.: Vitals noted. No acute distress. AAOx3. Intermittent eye contact secondary to blindness HEENT: PERRL/EOMI, oropharynx clear, Normocephalic, atraumatic, moist mucous membranes Neck: Supple. No adenopathy. Cardiac: RRR, no murmur, +S1/S2 Pulmonary: CTA bilaterally, no wheezes, rales or rhonchi, equal chest expansion Abdomen: soft, nontender, BS noted, no guarding Back: Nontender throughout. Extremities: Left lower extremity is erythematous from the proximal tibia to the ankle. Erythema and edema improved since yesterday. Packing in place with 2 surgical lacerations. No drainage, foul odor. Traumatic laceration stable from yesterday. no BLE edema, nontender calf, no cyanosis or clubbing Neuro: A&Ox3, moves all extremities, increased sensation in bilateral lower extremities, bilateral upper extremities and very to diabetic neuropathy Psych: Appropriate mood and behavior Internal Medicine: Result - Labs CBC & Chem 7: 10/17/16 05:50 10/17/16 05:50 Labs: Short CBC 10/17/16 Range/Units 05:50 WBC 5.5 (4.3-11.1) K/mcL Hgb 9.2 L (12.9-16.9) g/dL Hct 29.0 L (37.5-50.1) % Plt Count 77 L (140-400) K/mcL [facility] 10/17/16 05:50 Sodium 135 L Potassium 5.4 H D Chloride 99 Carbon Dioxide 23 BUN 44 H D Creatinine 6.32 H Glucose 185 H Calcium 8.6 - VTE Documentation of Mechanical Device: Intermittent pneumatic compression device Consult Discharge Plan - Plan Additional Instructions: Change Wound vac to LLE every M-W- (medium black foam to 125mmHG continuous suction) Referrals: Aamir Carreon MD [Partnered Physician] - ([place] [facility] [phone] Will need a 2 week follow-up for management of LLE wounds) Isidra Tate, KENDRA [Primary Care Provider] - <Feliciano Trammell - Last Filed: 10/17/16 17:34> Date of Encounter: 10/17/16 - Constitutional Vitals: Temp Pulse Resp BP Pulse Ox 98.1 F 74 20 134/67 95 10/17/16 16:38 10/17/16 16:38 10/17/16 16:38 10/17/16 16:38 10/17/16 16:38 Internal Medicine: Result - Labs CBC & Chem 7: 10/17/16 05:50 10/17/16 05:50 Labs: Short CBC 10/17/16 Range/Units 05:50 WBC 5.5 (4.3-11.1) K/mcL Hgb 9.2 L (12.9-16.9) g/dL Hct 29.0 L (37.5-50.1) % Plt Count 77 L (140-400) K/mcL [facility] 10/17/16 05:50 Sodium 135 L Potassium 5.4 H D Chloride 99 Carbon Dioxide 23 BUN 44 H D Creatinine 6.32 H Glucose 185 H Calcium 8.6 - Attending Attestation I examined this patient and my medical decision-making was reviewed with the Resident Physician on 10/17/16. I agree with the documented findings, disposition and treatment plan as described except to the extent set forth below. 75 M with legal blindness, DM, complicated with retinopathy, nephropathy, neuropathy, ESRD on HD, admitted for LLE cellulitis with abscess/hematoma following trauma Seen and evaluated at bedside with no new complains He is being managed for LLE cellulitis with hematoma following trauma He is s/p Incision and evacuation of large hematoma by surgery 10/16/16 He is seen and evaluated in the HD unit. NO new complains Physical exam: VSS. AAOX3. Left lower extremity with redness from the knee up to the ankle improving, clear wound dressing on lateral aspect of the leg, with wound vac-in-situ. Chest is clear to auscultation, L AVF thrill, abdomen is benign. Labs and Imaging reviewed: Chronic macrocytic anemia, no leukocytosis, chronic thrombocytopenia, and blood culture preliminary negative, wound culture/ pathology pending A/P: cellulitis with hematoma collection-continue vanco and cefepime, wound care as per surgery recommendations, follow wound pathology. Continue other management. High risk for hypoactive delirium. No indication for treatment for superficial venous thrombosis. HD as scheduled by renal. Adjust insulin with FS Fall precautions, patient is legally blind Rest of details as in resident physicians documentation.
[2016-10-17] MEDS: Insulin DETEMIR 100 UNIT/ML X5UNITS SQ SCH (21:38)
[2016-10-18] MEDS: *HR* Heparin 5,000 UNIT/ML VIAL SQ SCH ×2 (05:39→17:28)
[2016-10-18 06:24] LABS: Mean Corpuscular Volume 103.8 fL (83.0-100.0)
[2016-10-18 06:26] LABS: Hemoglobin 8.8 g/dL (12.9-16.9); Immature Platelets 3.5 % (1.1-6.1); Mean Corpuscular HGB Conc 32.6 g/dL (31.6-35.5); Mean Corpuscular Hemoglobin 33.8 pg (28.0-33.3); Mean Platelet Volume 10.4 fL (9.4-12.4); Red Blood Count 2.6 M/mcL (4.19-5.50); Red Cell Distribution Width 14.4 % (11.5-14.5)
[2016-10-18 06:27] LABS: Calcium 8.5 mg/dL (8.6-10.8)
[2016-10-18 06:28] LABS: Potassium 4.2 mEq/L (3.5-4.5)
[2016-10-18] MEDS: Insulin LISPRO 300 UNITS/3 ML VIAL SQ SCH ×4 (07:10→21:01)
[2016-10-18] MEDS: Calcium Acetate 667 MG CAPSULE PO SCH ×3 (09:40→15:35)
[2016-10-18] MEDS: Furosemide 40 MG TABLET PO SCH ×2 (09:40→17:28)
[2016-10-18] MEDS: Renal Vitamin 1 MG CAPSULE PO SCH (09:41)
--- NOTE | 2016-10-18 09:51 | Internal Med Progress Note ---
<Jl Jolleyew - Last Filed: 10/18/16 11:17> Date of Encounter: 10/18/16 Time of Encounter: 09:48 - Assessment and plan (1) Cellulitis of leg, left Current Visit: Yes Status: Acute Assessment and plan: -Improved since yesterday clinically. - Patient is afebrile, white blood cell count of 6.0 - Lactic acid of 0.6 in emergency department - CT scan revealed off tissue swelling circumferentially, and area of blood products extending for 18 cm. status post surgical debridement and evacuation of hematoma on 10/16. - Patient has been started on wound VAC, currently draining serous fluid. He will need home health 3 times a week with nursing upon discharge. - Patient is agreeable to physical therapy and occupational therapy to assess need for discharge needs - Patient is currently receiving cefepime 1 g and vancomycin for cellulitis - Patient will like go home on PO clindamycin if pathology does not show significant change in treatment. - Wound pathology sent from surgery awaiting results (2) Hematoma of left lower extremity Current Visit: Yes Status: Acute Assessment and plan: - As above, status post surgical evacuation of hematoma on 10/16 - H&H stable, 8.8/27 - MCV was elevated, indicating a macrocytic anemia, and replenished with full of acid, B12 vitamin from home medications - Patient has a history of chronic anemia, likely secondary to renal disease, nutrient deficiency Qualifiers: Encounter type: initial encounter Qualified Code(s): S80.12XA - Contusion of left lower leg, initial encounter (3) ESRD (end stage renal disease) on dialysis Current Visit: Yes Status: Chronic Assessment and plan: Patient receives Thursday dialysis - BUN/creatinine of 33/4.99, and improved after dialysis - Patient states that his last dialysis yesterday was uneventful - Nephrology is following for dialysis treatment (4) Diabetes mellitus Current Visit: Yes Status: Chronic Assessment and plan: - A1c was 5.9 - Glucose this a.m. was 103 well-controlled in the setting of infection - Have adjusted home a insulins, improved since yesterday. We will continue to monitor Qualifiers: Diabetes mellitus type: type 2 Diabetes mellitus complication status: with kidney complications Diabetes mellitus complication detail: with chronic kidney disease Diabetes mellitus detention insulin use: with detention use Chronic kidney disease stage: on chronic dialysis Qualified Code(s): E11.22 - Type 2 diabetes mellitus with diabetic chronic kidney disease; N18.6 - End stage renal disease; Z79.4 - head sampler (current) use of insulin; Z99.2 - Dependence on renal dialysis (5) Hypertension Current Visit: Yes Status: Chronic Assessment and plan: - BP this morning was 143/64 -Patient will see the dose of Lasix a day, and every other does not receive dialysis. Qualifiers: Hypertension type: essential hypertension Qualified Code(s): I10 - Essential (primary) hypertension (6) Thrombocytopenia Current Visit: No Status: Chronic Assessment and plan: - Platelet count of 80 this morning, stable from 77 yesterday - Chart review is a chronic condition, likely secondary to renal disease - We will continue to monitor and replenish if needed. - Time Spent With Patient 25 - 35 minutes - Subjective Interval history: Patient seen and examined at bedside this morning. Vision states that he is feeling well, with only mild pain in his left lower extremity. He continues to deny symptoms of fevers, chills, nausea, vomiting, shortness of breath. He is unable to determine the extent of his erythema, swelling due to blindness however he believes that he is improving each day. Topic of physical therapy was discussed and he does not believe he currently needs it as he is independent at home, however he is willing to be assessed during hospital stay. He states his dialysis went uneventfully yesterday and currently has no complaints. - Constitutional Vitals: Temp Pulse Resp BP Pulse Ox 98.1 F 73 18 143/64 95 10/18/16 06:32 10/18/16 06:32 10/18/16 06:32 10/18/16 06:32 10/18/16 06:32 Exam: Gen.: Vitals noted. No acute distress. AAOx3 HEENT: PERRL/EOMI, oropharynx clear, Normocephalic, atraumatic Neck: Supple. No adenopathy. Cardiac: RRR, no murmur, +S1/S2 Pulmonary: CTA bilaterally, no wheezes, rales or rhonchi, equal chest expansion Abdomen: soft, nontender, BS noted, no guarding Back: Nontender throughout. Extremities: Left lower extremity trauma with wound VAC currently draining serous fluid, erythema improved. no BLE edema, nontender calf, no cyanosis or clubbing Neuro: A&Ox3, moves all extremities, peripheral neuropathy Psych: Appropriate mood and behavior Internal Medicine: Result - Labs CBC & Chem 7: 10/18/16 06:00 10/18/16 06:00 Labs: Short CBC 10/18/16 Range/Units 06:00 WBC 6.0 (4.3-11.1) K/mcL Hgb 8.8 L (12.9-16.9) g/dL Hct 27.0 L (37.5-50.1) % Plt Count 80 L (140-400) K/mcL [facility] 10/18/16 06:00 Sodium 134 L Potassium 4.2 D Chloride 96 L Carbon Dioxide 30 H BUN 33 H D Creatinine 4.99 H Glucose 103 H Calcium 8.5 L - VTE Documentation of Mechanical Device: Intermittent pneumatic compression device Consult Discharge Plan - Plan Additional Instructions: Change Wound vac to LLE every M-W- (medium black foam to 125mmHG continuous suction) Referrals: Aamir Carreon MD [Partnered Physician] - ([place] [facility] [phone] Will need a 2 week follow-up for management of LLE wounds) Fabricio Bowman MD [Partnered Physician] - 10/24/16 2:00 pm <Feliciano Trammell - Last Filed: 10/18/16 13:27> Date of Encounter: 10/18/16 - Constitutional Vitals: Temp Pulse Resp BP Pulse Ox 98.3 F 71 16 144/75 94 10/18/16 11:12 10/18/16 11:12 10/18/16 11:12 10/18/16 11:12 10/18/16 11:12 Internal Medicine: Result - Labs CBC & Chem 7: 10/18/16 06:00 10/18/16 06:00 Labs: Short CBC 10/18/16 Range/Units 06:00 WBC 6.0 (4.3-11.1) K/mcL Hgb 8.8 L (12.9-16.9) g/dL Hct 27.0 L (37.5-50.1) % Plt Count 80 L (140-400) K/mcL [facility] 10/18/16 06:00 Sodium 134 L Potassium 4.2 D Chloride 96 L Carbon Dioxide 30 H BUN 33 H D Creatinine 4.99 H Glucose 103 H Calcium 8.5 L - Attending Attestation I examined this patient and my medical decision-making was reviewed with the Resident Physician on 10/18/16. I agree with the documented findings, disposition and treatment plan as described except to the extent set forth below. 75 M with legal blindness, DM, complicated with retinopathy, nephropathy, neuropathy, ESRD on HD, admitted for LLE cellulitis with abscess/hematoma following trauma Seen and evaluated at bedside with no new complains He is being managed for LLE cellulitis with hematoma following trauma He is s/p Incision and evacuation of large hematoma by surgery 10/16/16 He is seen and evaluated at bedside, he denies new complains He has neuropathy and denies pain on he LLE Physical exam: VSS. AAOX3. Left lower extremity with redness from the knee up to the ankle improving, clear wound dressing on lateral aspect of the leg, with wound vac-in-situ. Chest is clear to auscultation, L AVF thrill, abdomen is benign. Labs and Imaging reviewed: Chronic macrocytic anemia, no leukocytosis, chronic thrombocytopenia, and blood culture preliminary negative, wound culture/ pathology pending A/P: cellulitis with hematoma collection-continue vanco and cefepime, wound care as per surgery recommendations, follow wound pathology. Continue other management. High risk for hypoactive delirium. No indication for treatment for superficial venous thrombosis. HD as scheduled by renal. Adjust insulin with FS Fall precautions, patient is legally blind Rest of details as in resident physicians documentation.
--- NOTE | 2016-10-18 09:53 | Nephrology Progress Note ---
Date of Encounter: 10/18/16 Time of Encounter: 09:51 - Assessment and Plan (1) Cellulitis of leg, left Current Visit: Yes Status: Acute Per primary team. S/p I&D. Pain is controlled. Wound vac in place. Secondary to trauma. (2) ESRD (end stage renal disease) on dialysis Current Visit: Yes Status: Chronic HD MWF. Renal diet. Adjust medications for renal function. (3) Hypertension Current Visit: Yes Status: Chronic Blood pressure is controlled. Qualifiers: Qualified Code(s): I10 - Essential (primary) hypertension (4) Anemia Current Visit: No Status: Acute Monitor hemoglobin. Transfuse as needed. Qualifiers: Qualified Code(s): D64.9 - Anemia, unspecified Subjective Principal diagnosis: ESRD Interval history: Patient has no new complaint. His pain is controlled. His review of systems otherwise is negative or stable. Objective - Vital Signs Vital signs: Vital Signs Temp Pulse Resp BP Pulse Ox 10/18/16 06:32 98.1 F 73 18 143/64 95 10/18/16 03:01 97.7 F 76 18 131/61 93 10/17/16 23:06 98 F 80 18 133/54 96 10/17/16 18:47 99.1 F 76 18 130/52 95 10/17/16 16:38 98.1 F 74 20 134/67 95 10/17/16 13:10 98.0 F 14 132/56 10/17/16 13:00 132/65 10/17/16 12:45 127/67 10/17/16 12:30 123/67 10/17/16 12:15 130/60 10/17/16 12:00 137/72 10/17/16 11:45 142/74 10/17/16 11:30 133/64 10/17/16 11:15 131/60 10/17/16 11:00 126/66 10/17/16 10:45 133/65 10/17/16 10:30 138/65 10/17/16 10:15 132/64 10/17/16 10:00 137/63 Intake and Output 10/17/16 10/18/16 10/18/16 23:59 07:59 15:59 Intake Total 0 / 0 100 / 100 Output Total 30 / 30 Balance 0 / 0 100 / 100 -30 / -30 Intake: IV Fluids 100 / 100 Maxipime 1,000 MG In 100 / 100 Dextrose 5% (Minibag+) 100 ML 100 ML @ 200 mls/ hr IVPB DAILY@1400 [facility] Rx #:[id number] Oral 0 / 0 Output: Urine 30 / 30 Other: Weight 95.8 kg Blood Glucose* 174 127 Patient Weight 10/18/16 23:59 Weight 95.8 kg - General Appearance General appearance: Present: well-developed, well-nourished EENT: Present: ATNC Additional Comments: respirations are unlabored. Cardiology: Present: regular rate Neurologic: Present: alert and oriented x3 Psychiatric: Present: mood/affect appropriate - Lab 10/18/16 06:00 10/18/16 06:00 Most recent lab results Calcium 8.5 mg/dL (8.6-10.8) L 10/18/16 06:00 - VTE Documentation of Mechanical Device: Intermittent pneumatic compression device Consult Discharge Plan - Plan Additional Instructions: Change Wound vac to LLE every -- (medium black foam to 125mmHG continuous suction) Referrals: Aamir Carreon MD [Partnered Physician] - ([place] [facility] [phone] Will need a 2 week follow-up for management of LLE wounds) Fabricio Bowman MD [Partnered Physician] - 10/24/16 2:00 pm
[2016-10-18] MEDS: Cefepime HCl 1,000 MG in D5% in Water (Mini-Bag+) 100 ML IVPB SCH (15:34)
[2016-10-18] MEDS: Insulin DETEMIR 100 UNIT/ML X5UNITS SQ SCH (21:06)
[2016-10-19 04:48] LABS: Mean Corpuscular Hemoglobin 33.6 pg (28.0-33.3)
[2016-10-19 04:50] LABS: Hematocrit 25.8 % (37.5-50.1); Hemoglobin 8.4 g/dL (12.9-16.9); Immature Platelets 3.3 % (1.1-6.1); Mean Corpuscular HGB Conc 32.6 g/dL (31.6-35.5); Mean Corpuscular Volume 103.2 fL (83.0-100.0); Mean Platelet Volume 10.5 fL (9.4-12.4); Red Blood Count 2.5 M/mcL (4.19-5.50); Red Cell Distribution Width 14.1 % (11.5-14.5)
[2016-10-19] MEDS: *HR* Heparin 5,000 UNIT/ML VIAL SQ SCH ×2 (05:01→17:30)
[2016-10-19 05:03] LABS: Calcium 8.4 mg/dL (8.6-10.8); Potassium 4.3 mEq/L (3.5-4.5)
[2016-10-19] MEDS: Furosemide 40 MG TABLET PO SCH ×2 (08:40→17:35)
[2016-10-19] MEDS: Renal Vitamin 1 MG CAPSULE PO SCH (08:40)
[2016-10-19] MEDS: Calcium Acetate 667 MG CAPSULE PO SCH ×3 (08:40→17:30)
[2016-10-19] MEDS: Insulin LISPRO 300 UNITS/3 ML VIAL SQ SCH ×5 (08:55→21:23)
--- NOTE | 2016-10-19 09:39 | Internal Med Progress Note ---
<CyndeeRomeo poe - Last Filed: 10/19/16 10:49> Date of Encounter: 10/19/16 Time of Encounter: 09:36 - Assessment and plan (1) Cellulitis of leg, left Current Visit: Yes Status: Acute Assessment and plan: -Improved since yesterday clinically. - Patient is afebrile, white blood cell count of 5.0 - CT scan revealed off tissue swelling circumferentially, and area of blood products extending for 18 cm. status post surgical debridement and evacuation of hematoma on 10/16. - Patient has been started on wound VAC, currently draining serosanguinous fluid. He will need home health 3 times a week with nursing upon discharge. - Patient is agreeable to physical therapy and occupational therapy to assess need for discharge needs, will be evaluated Thursday. Discontinue oxygen via nasal cannula - Patient is currently receiving cefepime 1 g and vancomycin for cellulitis. - Medication upon discharge is clindamycin if pathology not indicate a change. - Wound pathology sent from surgery awaiting results (2) Hematoma of left lower extremity Current Visit: Yes Status: Acute Assessment and plan: - As above, status post surgical evacuation of hematoma on 10/16 - H&H stable, 8.4/26.5 - MCV was elevated, indicating a macrocytic anemia, and replenished with full of acid, B12 vitamin from home medications - Patient has a history of chronic anemia, likely secondary to renal disease, nutrient deficiency Qualifiers: Encounter type: initial encounter Qualified Code(s): S80.12XA - Contusion of left lower leg, initial encounter (3) ESRD (end stage renal disease) on dialysis Current Visit: Yes Status: Chronic Assessment and plan: Patient receives Thursday dialysis - BUN/creatinine of 51/6.15. Received dialysis on Thursday without event - Nephrology is following for dialysis treatment (4) Diabetes mellitus Current Visit: Yes Status: Chronic Assessment and plan: - A1c was 5.9 - Glucose this a.m. was 120. well-controlled in the setting of infection - Have adjusted home a insulins, improved since yesterday. We will continue to monitor Qualifiers: Diabetes mellitus type: type 2 Diabetes mellitus complication status: with kidney complications Diabetes mellitus complication detail: with chronic kidney disease Diabetes mellitus fdc insulin use: with buttermaker continuous churn use Chronic kidney disease stage: on chronic dialysis Qualified Code(s): E11.22 - Type 2 diabetes mellitus with diabetic chronic kidney disease; N18.6 - End stage renal disease; Z79.4 - FDC (current) use of insulin; Z99.2 - Dependence on renal dialysis (5) Hypertension Current Visit: Yes Status: Chronic Assessment and plan: - BP this morning was 151/76 -Patient will receive Lasix today, and every other does not receive dialysis. - Orders were also put in for hydralazine 10 mg every 6 hours when necessary hypertension Qualifiers: Hypertension type: essential hypertension Qualified Code(s): I10 - Essential (primary) hypertension (6) Thrombocytopenia Current Visit: No Status: Chronic Assessment and plan: - Platelet count of 79 this morning, - Chart review is a chronic condition, likely secondary to renal disease - We will continue to monitor and replenish if needed. - Time Spent With Patient 25 - 35 minutes - Subjective Interval history: Patient seen and examined at bedside this morning. Patient states that he is feeling well, with only mild pain in his left lower extremity. He continues to deny symptoms of fevers, chills, nausea, vomiting, shortness of breath. He states his leg feels less full than yesterday. Topic of physical therapy was discussed and he does not believe he currently needs it as he is independent at home, however he is willing to be assessed during hospital stay. He is no complaints time is currently awaiting evaluation by physical therapy. Patient also states that he would like to discontinue his oxygen at this time, as he does not use it at home. - Constitutional Vitals: Temp Pulse Resp BP Pulse Ox 98.4 F 72 18 161/66 94 10/19/16 09:01 10/19/16 09:01 10/19/16 09:01 10/19/16 09:01 10/19/16 09:01 Exam: Gen.: Vitals noted. No acute distress. AAOx3 HEENT: PERRL/EOMI, oropharynx clear, Normocephalic, atraumatic, moist mucous membranes Neck: Supple. No adenopathy. Cardiac: RRR, no murmur, +S1/S2 Pulmonary: CTA bilaterally, no wheezes, rales or rhonchi, equal chest expansion Abdomen: soft, nontender, BS noted, no guarding Back: Nontender throughout. MSK: ROM intact, no joint swelling noted Extremities: Left lower extremity and elected to wound VAC which is draining serosanguineous fluid. Erythema decreased since yesterday. Swelling and warmth of decreased since yesterday. no BLE edema, nontender calf, no cyanosis or clubbing Neuro: A&Ox3, moves all extremities, no new focal deficits Psych: Appropriate mood and behavior Internal Medicine: Result - Labs CBC & Chem 7: 10/19/16 04:12 10/19/16 04:12 Labs: Short CBC 10/19/16 Range/Units 04:12 WBC 5.0 (4.3-11.1) K/mcL Hgb 8.4 L (12.9-16.9) g/dL Hct 25.8 L (37.5-50.1) % Plt Count 79 L (140-400) K/mcL [facility] 10/19/16 04:12 Sodium 131 L Potassium 4.3 Chloride 95 L Carbon Dioxide 27 BUN 51 H D Creatinine 6.15 H Glucose 120 H Calcium 8.4 L - VTE Documentation of Mechanical Device: Intermittent pneumatic compression device Consult Discharge Plan - Plan Additional Instructions: Change Wound vac to LLE every M-W- (medium black foam to 125mmHG continuous suction) Referrals: Aamir Carreon MD [Partnered Physician] - ([place] [facility] [phone] Will need a 2 week follow-up for management of LLE wounds) Fabricio Bowman MD [Partnered Physician] - 10/24/16 2:00 pm <Feliciano Trammell - Last Filed: 10/19/16 12:22> Date of Encounter: 10/19/16 - Constitutional Vitals: Temp Pulse Resp BP Pulse Ox 98.2 F 73 16 157/71 95 10/19/16 11:08 10/19/16 11:08 10/19/16 11:08 10/19/16 11:08 10/19/16 11:08 Internal Medicine: Result - Labs CBC & Chem 7: 10/19/16 04:12 10/19/16 04:12 Labs: Short CBC 10/19/16 Range/Units 04:12 WBC 5.0 (4.3-11.1) K/mcL Hgb 8.4 L (12.9-16.9) g/dL Hct 25.8 L (37.5-50.1) % Plt Count 79 L (140-400) K/mcL [facility] 10/19/16 04:12 Sodium 131 L Potassium 4.3 Chloride 95 L Carbon Dioxide 27 BUN 51 H D Creatinine 6.15 H Glucose 120 H Calcium 8.4 L - Attending Attestation I examined this patient and my medical decision-making was reviewed with the Resident Physician on 10/19/16. I agree with the documented findings, disposition and treatment plan as described except to the extent set forth below. 75 M with legal blindness, DM, complicated with retinopathy, nephropathy, neuropathy, ESRD on HD, admitted for LLE cellulitis with abscess/hematoma following trauma Seen and evaluated at bedside with no new complains Sleeping but rousable, no new events He is being managed for LLE cellulitis with hematoma following trauma He is s/p Incision and evacuation of large hematoma by surgery 10/16/16 Physical exam: VSS. AAOX3. Left lower extremity with redness from the knee up to the ankle improving, clear wound dressing on lateral aspect of the leg, with wound vac-in-situ. Chest is clear to auscultation, L AVF thrill, abdomen is benign. Labs and Imaging reviewed A/P: cellulitis with hematoma collection-continue vanco and cefepime, wound care as per surgery recommendations, follow wound pathology. Continue other management. High risk for hypoactive delirium. No indication for treatment for superficial venous thrombosis. HD as scheduled by renal. Adjust insulin with FS Fall precautions, patient is legally blind Patient seen to be on oxygen, no use of home O2 at home, no respiratory distress , titrate to discontinue Rest of details as in resident physicians documentation.
--- NOTE | 2016-10-19 10:05 | Nephrology Progress Note ---
Date of Encounter: 10/19/16 Time of Encounter: 10:03 - Assessment and Plan (1) Cellulitis of leg, left Current Visit: Yes Status: Acute Per primary team. S/p I&D. Pain is controlled. Wound vac in place. Secondary to trauma. (2) ESRD (end stage renal disease) on dialysis Current Visit: Yes Status: Chronic HD MWF. Renal diet. Adjust medications for renal function. (3) Hypertension Current Visit: Yes Status: Chronic Blood pressure is trending up. Should improve with UF on dialysis. Will start ARB Qualifiers: Hypertension type: essential hypertension Qualified Code(s): I10 - Essential (primary) hypertension (4) Anemia Current Visit: No Status: Acute Monitor hemoglobin. Transfuse as needed. Qualifiers: Anemia type: unspecified type Qualified Code(s): D64.9 - Anemia, unspecified Subjective Principal diagnosis: ESRD Interval history: Patient has no new complaint. His pain is controlled. His review of systems otherwise is negative or stable. Objective - Vital Signs Vital signs: Vital Signs Temp Pulse Resp BP Pulse Ox 10/19/16 09:01 98.4 F 72 18 161/66 94 10/19/16 07:06 98.4 F 71 16 161/66 94 10/19/16 00:01 98.0 F 75 16 151/76 96 10/18/16 20:03 98.4 F 88 18 144/64 99 10/18/16 14:55 98.2 F 77 16 145/65 97 10/18/16 11:12 98.3 F 71 16 144/75 94 Intake and Output 10/18/16 10/19/16 10/19/16 23:59 07:59 15:59 Intake Total 780 / 780 30 / 30 460 / 460 Balance 780 / 780 30 / 30 460 / 460 Intake: IV Fluids 100 / 100 Maxipime 1,000 MG In 100 / 100 Dextrose 5% (Minibag+) 100 ML 100 ML @ 200 mls/ hr IVPB DAILY@1400 [facility] Rx #:[id number] Oral 780 / 780 30 / 30 360 / 360 Other: Meal Dinner Breakfast Percent of Meal Consumed 90% 100% Weight 96.2 kg Blood Glucose* 153 Patient Weight 10/19/16 23:59 Weight 96.2 kg - General Appearance General appearance: Present: well-developed, well-nourished EENT: Present: ATNC Neck: Present: supple Additional Comments: respirations are unlabored. Cardiology: Present: regular rate Neurologic: Present: alert and oriented x3 Psychiatric: Present: mood/affect appropriate - Lab 10/19/16 04:12 10/19/16 04:12 Most recent lab results Calcium 8.4 mg/dL (8.6-10.8) L 10/19/16 04:12 - VTE Documentation of Mechanical Device: Intermittent pneumatic compression device Consult Discharge Plan - Plan Additional Instructions: Change Wound vac to LLE every M-- (medium black foam to 125mmHG continuous suction) Referrals: Aamir Carreon MD [Partnered Physician] - ([place] [facility] [phone] Will need a 2 week follow-up for management of LLE wounds) Fabricio Bowman MD [Partnered Physician] - 10/24/16 2:00 pm
[2016-10-19] MEDS: Valsartan 80 MG TABLET PO SCH (12:35)
[2016-10-19] MEDS: Cefepime HCl 1,000 MG in D5% in Water (Mini-Bag+) 100 ML IVPB SCH (14:32)
[2016-10-19] MEDS: Insulin DETEMIR 100 UNIT/ML X5UNITS SQ SCH (21:22)
[2016-10-20 04:50] LABS: Red Cell Distribution Width 13.9 % (11.5-14.5)
[2016-10-20 04:52] LABS: Hematocrit 25.7 % (37.5-50.1); Hemoglobin 8.5 g/dL (12.9-16.9); Immature Platelets 3.1 % (1.1-6.1); Mean Corpuscular HGB Conc 33.1 g/dL (31.6-35.5); Mean Corpuscular Hemoglobin 33.7 pg (28.0-33.3); Mean Platelet Volume 10.2 fL (9.4-12.4); Red Blood Count 2.52 M/mcL (4.19-5.50)
[2016-10-20 05:12] LABS: Calcium 8.3 mg/dL (8.6-10.8); Potassium 4.4 mEq/L (3.5-4.5)
[2016-10-20] MEDS: *HR* Heparin 5,000 UNIT/ML VIAL SQ SCH (05:37)
[2016-10-20] MEDS: Insulin LISPRO 300 UNITS/3 ML VIAL SQ SCH ×3 (09:04→17:41)
[2016-10-20] MEDS ORDERED: 0.9 % Sodium Chloride 250 ML IVC PRN (09:38)
[2016-10-20] MEDS: Valsartan 80 MG TABLET PO SCH (09:45)
[2016-10-20] MEDS: Renal Vitamin 1 MG CAPSULE PO SCH (09:46)
[2016-10-20] MEDS: Calcium Acetate 667 MG CAPSULE PO SCH ×3 (09:46→17:41)
--- NOTE | 2016-10-20 12:18 | Nephrology Progress Note ---
Date of Encounter: 10/20/16 Time of Encounter: 12:16 - Assessment and Plan (1) Cellulitis of leg, left Current Visit: Yes Status: Acute Per primary team. S/p I&D. Pain is controlled. Wound vac in place. Secondary to trauma. (2) ESRD (end stage renal disease) on dialysis Current Visit: Yes Status: Chronic HD MWF. Renal diet. Adjust medications for renal function. (3) Hypertension Current Visit: Yes Status: Chronic Blood pressure is trending up. Should improve with UF on dialysis. ARB started 10/19/16 Qualifiers: Hypertension type: essential hypertension Qualified Code(s): I10 - Essential (primary) hypertension (4) Anemia Current Visit: No Status: Acute Monitor hemoglobin. Transfuse as needed. Qualifiers: Anemia type: unspecified type Qualified Code(s): D64.9 - Anemia, unspecified Subjective Principal diagnosis: ESRD Interval history: Patient seen while on dialysis. Asleep. Objective - Vital Signs Vital signs: Vital Signs Temp Pulse Resp BP Pulse Ox 10/20/16 11:18 97.9 F 124 18 122/56 98 10/20/16 09:57 97 10/20/16 06:48 97.5 F L 76 17 170/73 97 10/20/16 04:29 98.4 F 69 17 154/70 94 10/20/16 00:19 98.1 F 68 18 161/77 93 10/19/16 21:12 98.6 F 74 16 152/70 95 10/19/16 17:23 97.9 F 85 17 147/67 92 Intake and Output 10/19/16 10/20/16 10/20/16 23:59 07:59 15:59 Intake Total 1000 / 1000 170 / 170 Output Total 100 / 100 700 / 700 0 / 0 Balance 900 / 900 -700 / -700 170 / 170 Intake: Oral 1000 / 1000 170 / 170 Output: Urine 100 / 100 700 / 700 0 / 0 Other: Meal Dinner Breakfast Percent of Meal Consumed 100% 100% Weight 95.8 kg Blood Glucose* 204 67 115 Patient Weight 10/20/16 23:59 Weight 95.8 kg - General Appearance General appearance: Present: well-developed, well-nourished EENT: Present: ATNC Cardiology: Present: regular rate - Lab 10/20/16 04:16 10/20/16 04:16 Most recent lab results Calcium 8.3 mg/dL (8.6-10.8) L 10/20/16 04:16 - VTE Documentation of Mechanical Device: Intermittent pneumatic compression device Consult Discharge Plan - Plan Additional Instructions: Change Wound vac to LLE every M-W-F (medium black foam to 125mmHG continuous suction) Referrals: Aamir Carreon MD [Partnered Physician] - ([place] [facility] [phone] Will need a 2 week follow-up for management of LLE wounds) Fabricio Bowman MD [Partnered Physician] - 10/24/16 2:00 pm
[2016-10-20] MEDS ORDERED: Vancomycin 500 MG in D5% in Water (Mini-Bag+) 100 ML IVPB ONE (14:00)
[2016-10-20 14:03] VITALS: BP 149/63
[2016-10-20] MEDS ORDERED: 0.9 % Sodium Chloride 2,000 ML ONE (14:42)
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
--- NOTE | 2016-10-20 15:23 | Physician Discharge Referral ---
Home Health/Hosp Referral Info Transfer to: Home Health Provider in Charge Post Discharge: PCP - Diagnosis (1) Cellulitis of leg, left Priority: Primary Status: Acute (2) Hematoma of left lower extremity Priority: Primary Status: Acute (3) ESRD (end stage renal disease) on dialysis Priority: Secondary Status: Chronic (4) Diabetes mellitus Priority: Secondary Status: Chronic (5) Hypertension Priority: Secondary Status: Chronic (6) Thrombocytopenia Priority: Secondary Status: Chronic - Respiratory Orders Smoking Cessation: Smoking cessation has been advised. For more information, call the [employer] Tobacco Quit Line at 5-109-JSOO-NOW. - Dressing/Wound Care Site: Left Lower extremity Type of Dressing/Treatments w/Frequency: Wound vacuum, to be changed Thursday, Thursday, Thursday - Diet/Nutrition Diet/Nutrition Orders: Regular - Activity Activity Orders: Ambulate - Services Needed Following services are medically necessary services: Nursing, Home Health Aide - Transfer Medications Prescriptions: Clindamycin [Cleocin] 300 mg PO Q6HR #32 cap Home Medications: Folic Acid/Vit Bcomp,C [Renal-Edel Tablet] 0.8 mg PO DAILY 10/29/15 [History] Furosemide [Lasix] 40 mg PO AD 10/29/15 [History] Insulin Glargine [Lantus] 12 unit SQ HS 10/29/15 [History] Simvastatin [Zocor] 40 mg PO HS 10/29/15 [History] Calcium Acetate [Phos-LO] 1,334 mg PO TIDWM 10/15/16 [History] Insulin LISPRO [HumaLOG] 0 unit SQ TIDWM 10/15/16 [History] cephALEXin [Keflex] 500 mg PO TID 10/15/16 [History] Clindamycin [Cleocin] 300 mg PO Q6HR #32 cap 10/20/16 [Rx] Allergies/Adverse Reactions: Allergies Penicillins Allergy (Verified 11/04/15 10:03) Rash Sulfa (Sulfonamide Antibiotics) Allergy (Verified 11/04/15 10:03) Rash acetaminophen [From Percocet] Adverse Reaction (Verified 11/04/15 10:03) Hallucinating Oxycodone [From Percocet] Adverse Reaction (Verified 11/04/15 10:03) Hallucinating Certification: Further, I certify that my clinical findings support that this patient is homebound (i.e. absences from home require considerable and taxing effort and are for medical reasons or christian services or infrequently or short duration when for other reasons) because: Homebound Reason: Patient requires assistance of a person or device to safely leave home, Leaving home requires considerable and taxing effort due to condition Attestation: My signature below is to certify that this patient is under my care and that I, or nurse practitioner, or a physician's licensed occupational therapy assistant working with me, has a face-to -face encounter with this patient.
[2016-10-20] MEDS ORDERED: Aminoglycoside Consult 1 EACH MC ONE (17:51)
== END 2016-10-20 17:52 | disposition home health service (06) ==
LOC: EMEROO 17:12 → 2ANU 17:12
PROVIDERS: ADMIT Nurse Practitioner Family; ATTEND Internal Medicine

== ENCOUNTER 2018-04-08 13:22 | Inpatient (IN) ==
[2018-04-08] MEDS ORDERED: Ipratropium/Albuterol Neb 3 ML ONE (13:50)
[2018-04-08 14:01] LABS: Basophils % 0.1 %; Eosinophils # 0.2 K/mcL (0.0-0.6); Eosinophils % 1.9 %; Hemoglobin 12.1 g/dL (12.9-16.9); Immature Granulocytes % 0.4 % (0-4); Lymphocytes # 0.9 K/mcL (0.6-4.6); Lymphocytes % 11.8 %; Mean Corpuscular HGB Conc 31.8 g/dL (31.6-35.5); Mean Corpuscular Volume 103.5 fL (83.0-100.0); Mean Platelet Volume 10.5 fL (9.4-12.4); Monocytes # 0.9 K/mcL (0.0-1.3); Monocytes % 10.9 %; Neutrophils # 5.8 K/mcL (1.6-8.9); Red Blood Count 3.67 M/mcL (4.19-5.50); Red Cell Distribution Width 17.2 % (11.5-14.5); Segmented Neutrophils % 74.9 %
--- NOTE | 2018-04-08 14:04 | Emergency Department Note ---
Disposition Clinical Impression: Elevated troponin, ESRD (end stage renal disease), Thrombocythemia Dyspnea Qualifiers: Dyspnea type: dyspnea on exertion Qualified Code(s): R06.09 - Other forms of dyspnea Congestive heart failure Qualifiers: Heart failure type: unspecified Qualified Code(s): I50.9 - Heart failure, unspecified Disposition: Admitted As Inpatient Condition: Fair Time of Disposition: 14:40 SOB HPI - General Stated Complaint: OLYA Time Seen by Provider: 04/08/18 13:31 Source: patient Mode of arrival: ambulatory Limitations: no limitations Nursing Notes Reviewed: Yes Vital Signs Reviewed: Yes - History of Present Illness 77-year-old male presents emergency Department with concerns of increasing shortness of breath. Patient states he is also had increasing weakness and fatigue over the past few days. Patient has end-stage renal disease and attends dialysis Thursday, Thursday with Dr. Rubio. Patient has not missed any of his dialysis sessions. He states that this is happened before where he has become increasingly weak and fatigued. Patient denies chest pain, nausea, vomiting, diarrhea. Denies palpitations. No changes in his medications. Chest x-ray earlier today showed a significant left-sided pleural effusion. - Related Data Home Medications Medication Instructions Recorded Confirmed RX: Folic Acid/Vit Bcomp,C 0.8 mg PO DAILY 10/29/15 04/08/18 [Renal-Edel Tablet] RX: Simvastatin [Zocor] 40 mg PO HS 10/29/15 04/08/18 RX: Calcium Acetate [Phos-LO] 1,334 mg PO TIDWM 10/15/16 04/08/18 Docusate Sodium [Stool Softener] 200 mg PO DAILY 01/15/17 04/08/18 Vitamin B Complex [B Complex] 1 each PO DAILY 01/15/17 04/08/18 Levothyroxine [Synthroid] 112 mcg PO 0630 04/16/17 04/08/18 Insulin ASPART [NovoLOG] 0 unit SQ TID 04/08/18 04/08/18 Allergies Allergy/AdvReac Type Severity Reaction Status Date / Time Penicillins Allergy Rash Verified 02/02/18 09:21 Sulfa (Sulfonamide Allergy Rash Verified 02/02/18 09:21 Antibiotics) acetaminophen [From Percocet] AdvReac Hallucinati Verified 02/02/18 09:21 ng oxycodone [From Percocet] AdvReac Hallucinati Verified 02/02/18 09:21 ng All systems ED: reviewed and negative except as stated. Review of Systems: As Per HPI Past Medical History - Past Medical History Attestation: Yes The following information was validated with the patient. Source: patient Medical history: Reports: cardiomyopathy, CHF, coronary artery disease, CVA, diabetes, dialysis, hyperlipidemia, hypertension, myocardial infarction, renal disease, other Surgical history: Reports: appendectomy, cholecystectomy, orthopedic, other Psychiatric history: Reports: no psych history - Social History Smoking Status: Current every day smoker Smokeless Tobacco Status: No Alcohol use: Reports: none Drug use: Reports: none Physical Exam General: Alert and in no acute distress Skin: Warm, dry, intact. Dialysis fistulas present on bilateral upper extremity with thrill present Head: Normocephalic and atraumatic. Baseline decreased vision bilaterally Neck: Supple, trachea midline and no tenderness Cardiovascular: RRR, no murmur, normal perfusion Respiratory: Decreased breath sounds left lower base, mild cough on exam. No significant wheezing. Musculoskeletal: Normal strength, no tenderness, swelling or deformity GI: Soft, nontender, nondistended. Bowel sounds present Neuro: A&O to person, place, time and situation. No focal deficits noted on exam Psychiatric: cooperative and appropriate mood and affect. Course Vital Signs Temperature 98.6 F 04/08/18 13:26 Pulse Rate 71 04/08/18 13:26 Respiratory Rate 18 04/08/18 13:26 Blood Pressure 119/64 04/08/18 13:26 O2 Sat by Pulse Oximetry 80 04/08/18 13:26 Temperature 97.6 F 04/10/18 11:32 Pulse Rate 65 04/10/18 11:32 Respiratory Rate 18 04/10/18 11:32 Blood Pressure 135/60 04/10/18 11:32 O2 Sat by Pulse Oximetry 98 04/10/18 11:32 Oxygen Delivery Oxygen Delivery Room Air Shortness of Breath/Dyspnea - MDM Narrative Medical decision making narrative: Patient had significant increased weakness and fatigue over the past few days. He is an elevated troponin on up to evaluation. EKG did not show evidence of STEMI. Patient does have a baseline elevated troponin of 0.06 however it is 0.56 today. - Medical Records Medical records reviewed: Yes I reviewed the patient's medical records. - Lab Data Lab results reviewed: Yes I reviewed the patient's lab results. Result diagrams: 04/10/18 09:03 04/10/18 09:03 Lab Results 04/08/18 04/08/18 04/08/18 Range/Units 13:46 13:46 13:46 WBC 7.8 (4.3-11.1) K/mcL RBC 3.67 L (4.19-5.50) M/mcL Hgb 12.1 L (12.9-16.9) g/dL Hct 38.0 (37.5-50.1) % MCV 103.5 H (83.0-100.0) fL MCH 33.0 (28.0-33.3) pg MCHC 31.8 (31.6-35.5) g/dL RDW 17.2 H (11.5-14.5) % Plt Count 52 L (140-400) K/mcL MPV 10.5 (9.4-12.4) fL Immature Gran % 0.4 (0-4) % Seg Neutrophils % 74.9 % Lymphocytes % 11.8 % Monocytes % 10.9 % Eosinophils % 1.9 % Basophils % 0.1 % Neutrophils # 5.8 (1.6-8.9) K/mcL Lymphocytes # 0.9 (0.6-4.6) K/mcL Monocytes # 0.9 (0.0-1.3) K/mcL Eosinophils # 0.2 (0.0-0.6) K/mcL Basophils # 0.0 (0.0-0.2) K/mcL Sodium 134 L (136-145) mEq/L Potassium 4.0 (3.5-5.1) mEq/L Chloride 93 L (98-107) mEq/L Carbon Dioxide 29 (23-29) mEq/L BUN 38 H (8-23) mg/dL Creatinine 5.45 H (0.70-1.30) mg/dL Est GFR ( Amer) 12 L (> 60) Est GFR (Non-Af Amer) 10 L (> 60) BUN/Creatinine Ratio 7 (6-26) Glucose 128 H (70-105) mg/dL Calculated Osmolality 289 (280-300) Lactic Acid 1.4 (0.5-2.2) mmol/L Calcium 8.8 (8.6-10.3) mg/dL Troponin I 0.59 H* (< 0.04) ng/mL B-Natriuretic Peptide (Less than 100) pg/mL 04/08/18 Range/Units 13:46 WBC (4.3-11.1) K/mcL RBC (4.19-5.50) M/mcL Hgb (12.9-16.9) g/dL Hct (37.5-50.1) % MCV (83.0-100.0) fL MCH (28.0-33.3) pg MCHC (31.6-35.5) g/dL RDW (11.5-14.5) % Plt Count (140-400) K/mcL MPV (9.4-12.4) fL Immature Gran % (0-4) % Seg Neutrophils % % Lymphocytes % % Monocytes % % Eosinophils % % Basophils % % Neutrophils # (1.6-8.9) K/mcL Lymphocytes # (0.6-4.6) K/mcL Monocytes # (0.0-1.3) K/mcL Eosinophils # (0.0-0.6) K/mcL Basophils # (0.0-0.2) K/mcL Sodium (136-145) mEq/L Potassium (3.5-5.1) mEq/L Chloride (98-107) mEq/L Carbon Dioxide (23-29) mEq/L BUN (8-23) mg/dL Creatinine (0.70-1.30) mg/dL Est GFR ( Amer) (> 60) Est GFR (Non-Af Amer) (> 60) BUN/Creatinine Ratio (6-26) Glucose (70-105) mg/dL Calculated Osmolality (280-300) Lactic Acid (0.5-2.2) mmol/L Calcium (8.6-10.3) mg/dL Troponin I (< 0.04) ng/mL B-Natriuretic Peptide 2711 H (Less than 100) pg/mL - Radiology Data Radiology results reviewed: Yes I reviewed the patient's radiology results. - EKG Data EKG attestation: Yes I reviewed and interpreted this EKG. EKG results narrative: Sinus rhythm with a rate of 71 with QTC of 424, QRS of 117, no evidence of STEMI or other dysrhythmia.
[2018-04-08 14:07] LABS: Platelet Count 52 K/mcL (140-400)
[2018-04-08 14:19] LABS: Calcium 8.8 mg/dL (8.6-10.3)
[2018-04-08 14:26] LABS: Troponin I 0.59 ng/mL (< 0.04)
[2018-04-08] MEDS ORDERED: Aspirin 81 MG TAB.CHEW PO ONE (14:39)
[2018-04-08] MEDS ORDERED: Naloxone 0.4 MG/ML INJ IVP PRN ×3 (16:57→17:04)
--- NOTE | 2018-04-08 17:30 | Internal Med History&Physical ---
Date of Encounter: 04/08/18 Time of Encounter: 15:00 Internal Medicine - H&P: HPI Chief complaint: Shortness of breath/generalized weakness Admitted From: Home Plans for Post Hospital Care: Home History of present illness: Patient is a 77-year-old male with past medical history significant for end- stage renal disease, chronic thrombocytopenia, hypothyroid, anemia, hypertension, diabetes and congestive heart failure who presents to the ER on 04/08/18 due to shortness of breath and generalized weakness. Patient reports for the last 6 months of generalized weakness and fatigue that has gradually gotten worse over the last few weeks. Patient reports over the last couple days of having increasing shortness of breath mainly dyspnea on exertion. Patient also reports of worsening bilateral lower extremity edema. He was concerned so decided to come to the ER for evaluation. In the ER, patient was found to have an elevated BNP of 2711 with elevated troponin of 0.59. EKG reviewed by myself showed no ST changes but T-wave inversions which were evident and prior EKG as well. Chest x-ray also showed moderate left and small right pleural effusion with dependent left basilar biomarkers; mild perihilar edema suspected due to CHF. Patient will be admitted to medical surgical floor for further management. Past Med Surg Social Fam HX - Past Medical History Medical history: cardiomyopathy, CHF, coronary artery disease, CVA, diabetes, dialysis, hyperlipidemia, hypertension, myocardial infarction, renal disease, other Additional medical history: heart murmur Psychiatric history: no psych history - Past Surgical History Surgical History: appendectomy, cholecystectomy, orthopedic, other Additional surgical history: right rotator cuff repair - Social History Smoking Status: Current every day smoker Smokeless Tobacco Status: No Alcohol use: none Drug use: none - Family History Father Adopted: No Family Member Ethnicity: Non- Living Status: Hx Family Cardiac Disorders: No Hx Family Respiratory Disorders: No Hx Family Cancer: No Hx Family GI Disorders: No Hx Family Endocrine Disorder: Yes Hx Family Neuromuscular Disorders: No Hx Family Neurologic Disorders: No Hx Family HEENT Disorders: No Hx Family Autoimmune Disorders: No Mother Adopted: No Family Member Ethnicity: Non- Living Status: Hx Family Cardiac Disorders: No Hx Family Respiratory Disorders: No Hx Family Cancer: No Hx Family GI Disorders: No Hx Family Endocrine Disorder: Yes (diabetes) Hx Family Neuromuscular Disorders: No Hx Family Neurologic Disorders: Yes (stroke and alzheimer) Hx Family HEENT Disorders: No Hx Family Autoimmune Disorders: No Internal Medicine - H&P: Meds Folic Acid/Vit Bcomp,C [Renal-Edel Tablet] 0.8 mg PO DAILY 10/29/15 [History] Simvastatin [Zocor] 40 mg PO HS 10/29/15 [History] Calcium Acetate [Phos-LO] 1,334 mg PO TIDWM 10/15/16 [History] Docusate Sodium [Stool Softener] 200 mg PO DAILY 01/15/17 [History] Vitamin B Complex [B Complex] 1 each PO DAILY 01/15/17 [History] Levothyroxine [Synthroid] 112 mcg PO 0630 04/16/17 [History] Insulin ASPART [NovoLOG] 0 unit SQ TID 04/08/18 [History] Allergy/AdvReac Type Severity Reaction Status Date / Time Penicillins Allergy Rash Verified 02/02/18 09:21 Sulfa (Sulfonamide Allergy Rash Verified 02/02/18 09:21 Antibiotics) acetaminophen [From Percocet] AdvReac Hallucinati Verified 02/02/18 09:21 ng oxycodone [From Percocet] AdvReac Hallucinati Verified 02/02/18 09:21 ng All Systems PM: A 10-system review of systems was performed and is negative for pertinent findings except as documented above in the HPI. - Constitutional Vitals: Temp Pulse Resp BP Pulse Ox 98.5 F 76 16 118/62 95 04/08/18 17:20 04/08/18 17:20 04/08/18 17:20 04/08/18 17:20 04/08/18 17:20 General appearance: Present: A&O X 3, no acute distress Exam: As above - Head Head exam: Present: normocephalic - Eye Eye exam: Present: normal appearance - ENT ENT exam: Present: mucous membranes dry - Respiratory Respiratory exam: Present: CTAB. Absent: accessory muscle use, rales, rhonchi, wheezes - Cardiovascular Cardiovascular exam: Present: RRR, +S1, +S2. Absent: diastolic murmur, gallop, rubs, systolic murmur - GI/Abdominal GI/Abdominal exam: Present: normal bowel sounds, soft, no peritoneal signs. Absent: distended, tenderness - Expanded Lower Extremities Exam Lower Leg exam: Present: swelling (Bilateral lower extremity edema) - Neurological Exam Neurological exam: Present: no focal deficits - Psychiatric Psychiatric exam: Present: normal mood - Skin Skin exam: Present: erythema (Bilateral lower extremity erythema secondary to venous stasis) Internal Med - H&P Results - Labs CBC & Chem 7: 04/08/18 13:46 04/08/18 13:46 Labs: Short CBC 04/08/18 Range/Units 13:46 WBC 7.8 (4.3-11.1) K/mcL Hgb 12.1 L (12.9-16.9) g/dL Hct 38.0 (37.5-50.1) % Plt Count 52 L (140-400) K/mcL Neutrophils # 5.8 (1.6-8.9) K/mcL BMP 04/08/18 13:46 Sodium 134 L Potassium 4.0 Chloride 93 L Carbon Dioxide 29 BUN 38 H Creatinine 5.45 H Glucose 128 H Calcium 8.8 Cardiac Enzymes 04/08/18 Range/Units 13:46 Troponin I 0.59 H* (< 0.04) ng/mL - Impressions ITS Impressions Head CT 04/08/18 15:37 IMPRESSION: No acute intracranial abnormality. Chronic microvascular ischemic changes. D/ / Hunter Mora / Hunter Mora Interpreting Provider: Hunter Mora - Assessment and plan (1) ESRD (end stage renal disease) on dialysis Current Visit: No Status: Chronic Assessment and plan: Patient with a creatinine of 5.45 with GFR of 10 on admission with a BUN of 38 and potassium of 4.0 Patient also with elevated BNP of 2711 with an elevated troponin of 0.59 Chest x-ray also shows mild perihilar edema likely related to CHF with bilateral pleural effusions Discussed with and consulted nephrology with recommendations for ultrafiltration tonight and to continue scheduled hemodialysis tomorrow Appreciate any additional recommendations (2) Congestive heart failure Current Visit: Yes Status: Acute Assessment and plan: Patient with elevated BNP of 2711 an elevated troponin of 0.59 with bilateral pleural effusions and mild perihilar edema on chest x-ray Discussed with cardiology who suspects secondary to volume overload due to end- stage renal disease above Will trend serial troponins and monitor on telemetry Echocardiogram on 04/30/15 showed LVEF of 50-55% with mild left ventricular diastolic dysfunction and mild pulmonary hypertension with RVSP at 36 mmHg and a meeting gradient 12 mmHg Repeat echocardiogram pending Qualifiers: Heart failure type: unspecified Qualified Code(s): I50.9 - Heart failure, unspecified (3) Elevated troponin Current Visit: Yes Status: Acute Assessment and plan: Patient with elevated troponin of 0.59 on admission and repeat of 0.76 Discussed with finisher [employer] who suspects elevated troponin secondary to end- stage renal disease as patient unable to clear troponins renally Recommendations not to start patient on heparin drip per cardiology Will trend serial troponins and monitor on telemetry Echocardiogram pending as above (4) Pleural effusion Current Visit: No Status: Acute Assessment and plan: Patient found to have moderate left and small right pleural effusion with dependent left basilar volume loss on chest x-ray Patient also requiring supplemental oxygenation due to acute hypoxic respiratory failure Will consult pulmonology and appreciate recommendations (5) Hyperglycemia due to type 2 diabetes mellitus Current Visit: No Status: Acute Assessment and plan: Coverage with sliding scale insulin Qualifiers: Diabetes mellitus detention insulin use: with detention use Qualified Code(s): E11.65 - Type 2 diabetes mellitus with hyperglycemia; 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
[2018-04-08] MEDS ORDERED: 0.9 % Sodium Chloride 250 ML IVC PRN (17:47)
[2018-04-08] MEDS ORDERED: 0.9 % Sodium Chloride 1,000 ML PRIME SCH (18:00)
[2018-04-08 19:00] LABS: Hepatitis B Surface Antigen Nonreactive (Nonreactive)
[2018-04-08 19:42] LABS: Adenovirus Not Detected (Not Detect); Bordetella Pertussis Not Detected (Not Detect); Chlamydophila pneumoniae Not Detected (Not Detect); Coronavirus 229E Not Detected (Not Detect); Coronavirus HKU1 Not Detected (Not Detect); Coronavirus NL63 Not Detected (Not Detect); Coronavirus OC43 Not Detected (Not Detect); Human Metapneumovirus Not Detected (Not Detect); Human Rhinovirus/Enterovirus Not Detected (Not Detect); Influenza A Subtype 2009 H1 Not Detected (Not Detect); Influenza A Untypeable Not Detected (Not Detect); Influenza B Not Detected (Not Detect); Mycoplasma pneumoniae Not Detected (Not Detect); Parainfluenza Virus 1 Not Detected (Not Detect); Parainfluenza Virus 2 Not Detected (Not Detect); Parainfluenza Virus 3 Not Detected (Not Detect); Parainfluenza Virus 4 Not Detected (Not Detect); Respiratory Syncytial Virus DETECTED (Not Detect)
[2018-04-08 20:02] LABS: Hepatitis B Surface Antibody > 850.00 mIU/mL
--- NOTE | 2018-04-09 00:18 | Nephrology Consult Note ---
Date of Encounter: 04/08/18 Time of Encounter: 17:00 Assessment and Plan (1) ESRD (end stage renal disease) Current Visit: Yes Status: Acute Will contact HD nurse immendiately for urgent UF Next HD still planned for tomrrow with more UF Renal diet advised Lytes stable (2) Dyspnea Current Visit: Yes Status: Acute As above Will also check nasal swab for a viral illness Qualifiers: Dyspnea type: dyspnea on exertion Qualified Code(s): R06.09 - Other forms of dyspnea (3) Pleural effusion Current Visit: No Status: Acute Might still need to be addressed with thoracentesis if still dyspneic after aggresive UF History of Present Illness - Reason for Consult Consult date: 04/08/18 end stage renal disease Requesting physician: Jasson Judd - History of Present Illness 77 y o male well known to me from assisted management of ESRd on HD, DM, HTN and CHF admitted with progressive SOB in the past few days. Pt seen and examined with present, overall has been declining in function for several months now with recurrent cellulitis/LE edema despite treatment with several different abxs and aggresive fluid removal with HD. Pt noted dyspneic with audible wheezes despite neb treatment in the ED. Last HD was thursday oon a schedule. CXR showed pleural effusions bilateral with left more significant Past Med Surg Social Fam HX - Past Medical History Medical history: cardiomyopathy, CHF, coronary artery disease, CVA, diabetes, dialysis, hyperlipidemia, hypertension, myocardial infarction, renal disease, other Additional medical history: heart murmur Psychiatric history: no psych history - Past Surgical History Surgical History: appendectomy, cholecystectomy, orthopedic, other Additional surgical history: right rotator cuff repair - Social History Smoking Status: Current every day smoker Smokeless Tobacco Status: No Alcohol use: none Drug use: none - Family History Father Adopted: No Family Member Ethnicity: Non- Living Status: Hx Family Cardiac Disorders: No Hx Family Respiratory Disorders: No Hx Family Cancer: No Hx Family GI Disorders: No Hx Family Endocrine Disorder: Yes Hx Family Neuromuscular Disorders: No Hx Family Neurologic Disorders: No Hx Family HEENT Disorders: No Hx Family Autoimmune Disorders: No Mother Adopted: No Family Member Ethnicity: Non- Living Status: Hx Family Cardiac Disorders: No Hx Family Respiratory Disorders: No Hx Family Cancer: No Hx Family GI Disorders: No Hx Family Endocrine Disorder: Yes (diabetes) Hx Family Neuromuscular Disorders: No Hx Family Neurologic Disorders: Yes (stroke and alzheimer) Hx Family HEENT Disorders: No Hx Family Autoimmune Disorders: No Medications and Allergies Folic Acid/Vit Bcomp,C [Renal-Edel Tablet] 0.8 mg PO DAILY 10/29/15 [History] Simvastatin [Zocor] 40 mg PO HS 10/29/15 [History] Calcium Acetate [Phos-LO] 1,334 mg PO TIDWM 10/15/16 [History] Docusate Sodium [Stool Softener] 200 mg PO DAILY 01/15/17 [History] Vitamin B Complex [B Complex] 1 each PO DAILY 01/15/17 [History] Levothyroxine [Synthroid] 112 mcg PO 0630 04/16/17 [History] Insulin ASPART [NovoLOG] 0 unit SQ TID 04/08/18 [History] Allergy/AdvReac Type Severity Reaction Status Date / Time Penicillins Allergy Rash Verified 02/02/18 09:21 Sulfa (Sulfonamide Allergy Rash Verified 02/02/18 09:21 Antibiotics) acetaminophen [From Percocet] AdvReac Hallucinati Verified 02/02/18 09:21 ng oxycodone [From Percocet] AdvReac Hallucinati Verified 02/02/18 09:21 ng Review of Systems All Systems review (narrative): The rest of the systems are negative Constitutional: lethargy (admits) Cardiovascular: chest pain (denies), dyspnea (admits), leg edema (admits) Respiratory: cough (denies) Exam - Vital Signs Vital signs: Initial Vital Signs Temp Pulse Resp BP Pulse Ox 98.6 F 71 18 119/64 80 04/08/18 13:26 04/08/18 13:26 04/08/18 13:26 04/08/18 13:26 04/08/18 13:26 Vital Signs - Last 8 Hours Temp Pulse Resp BP Pulse Ox 04/08/18 21:26 97.4 F L 18 110/54 04/08/18 21:05 98/52 04/08/18 20:50 94/54 04/08/18 20:35 98/53 04/08/18 20:20 102/51 04/08/18 20:05 106/54 04/08/18 19:50 111/56 01/03/19 19:35 118/55 04/08/18 19:20 112/64 04/08/18 19:05 97.5 F L 18 118/58 04/08/18 17:20 98.5 F 76 16 118/62 95 04/08/18 16:56 98.5 F 71 16 118/62 95 Intake and Output 04/08/18 04/08/18 04/09/18 15:59 23:59 07:59 Intake Total 720 / 720 Output Total 4600 / 4600 Balance -3880 / -3880 Intake: Oral 120 / 120 Intake, Rinseback and Flushes 600 / 600 Output: Total Dialysis (HD) Output 4600 / 4600 Other: Weight 98.883 kg 97 kg Hemodialysis Net Fluid Removed 4000 (mL) - General Appearance General appearance: moderate distress (due to resp distress), chronically ill EENT: ATNC, mucous membranes moist Neck: no JVD, supple Respiratory: wheezing Cardiology: edema (LE bilat), normal S1, normal S2 - Dialysis Access Dialysis Vascular Access: Arteriovenous Fistula thrill: Yes bruit: Yes Gastrointestinal: no tenderness, no guarding Integumentary: warm and dry Neurologic: no focal deficit Musculoskeletal: no deformities Psychiatric: mood/affect appropriate Results - Lab Results 04/11/18 03:18 04/11/18 03:18 Most recent lab results Calcium 8.8 mg/dL (8.6-10.3) 04/08/18 13:46 Consult Discharge Plan - Plan Referrals: Isidra Tate, RASPBERRY CHECKER [Primary Care Provider] -
[2018-04-09 00:59] LABS: Mean Corpuscular Volume 104.4 fL (83.0-100.0); Monocytes % 8.3 %; Red Cell Distribution Width 17.2 % (11.5-14.5); Segmented Neutrophils % 69.4 %
[2018-04-09 01:01] LABS: Basophils % 0.3 %; Eosinophils # 0.6 K/mcL (0.0-0.6); Eosinophils % 9.2 %; Hematocrit 37.7 % (37.5-50.1); Hemoglobin 11.9 g/dL (12.9-16.9); Immature Granulocytes % 0.6 % (0-4); Immature Platelets 3.8 % (1.1-6.1); Lymphocytes # 0.8 K/mcL (0.6-4.6); Lymphocytes % 12.2 %; Mean Corpuscular HGB Conc 31.6 g/dL (31.6-35.5); Mean Platelet Volume 10.6 fL (9.4-12.4); Monocytes # 0.5 K/mcL (0.0-1.3); Neutrophils # 4.4 K/mcL (1.6-8.9); Platelet Count 57 K/mcL (140-400); Red Blood Count 3.61 M/mcL (4.19-5.50)
[2018-04-09 01:15] LABS: Calcium 8.8 mg/dL (8.6-10.3); Potassium 4.2 mEq/L (3.5-5.1)
[2018-04-09] MEDS ORDERED: 0.9 % Sodium Chloride 2,000 ML ONE (07:37)
[2018-04-09] MEDS ORDERED: 0.9 % Sodium Chloride 250 ML IVC PRN (08:20)
[2018-04-09] MEDS ORDERED: *HR* Heparin 10,000 UNIT/10 ML VIAL IV PRN (08:20)
[2018-04-09] MEDS ORDERED: 0.9 % Sodium Chloride 1,000 ML PRIME SCH (08:30)
[2018-04-09] MEDS: Vitamin B Complex/Vit C/Vit E 1 EACH TABLET PO SCH (08:46)
[2018-04-09] MEDS: Calcium Acetate 667 MG CAPSULE PO SCH ×3 (08:46→17:08)
--- NOTE | 2018-04-09 09:24 | Pulmonology Consult Note ---
<Shannan Hopkins M - Last Filed: 04/09/18 13:06> Date of Encounter: 04/09/18 Medications and Allergies Folic Acid/Vit Bcomp,C [Renal-Edel Tablet] 0.8 mg PO DAILY 10/29/15 [History] Simvastatin [Zocor] 40 mg PO HS 10/29/15 [History] Calcium Acetate [Phos-LO] 1,334 mg PO TIDWM 10/15/16 [History] Docusate Sodium [Stool Softener] 200 mg PO DAILY 01/15/17 [History] Vitamin B Complex [B Complex] 1 each PO DAILY 01/15/17 [History] Levothyroxine [Synthroid] 112 mcg PO 0630 04/16/17 [History] Insulin ASPART [NovoLOG] 0 unit SQ TID 04/08/18 [History] Allergy/AdvReac Type Severity Reaction Status Date / Time Penicillins Allergy Rash Verified 02/02/18 09:21 Sulfa (Sulfonamide Allergy Rash Verified 02/02/18 09:21 Antibiotics) acetaminophen [From Percocet] AdvReac Hallucinati Verified 02/02/18 09:21 ng oxycodone [From Percocet] AdvReac Hallucinati Verified 02/02/18 09:21 ng All Systems: The remainder of the systems were reviewed and are negative Physical Examination Vital Signs: Vital Signs, Last 4 Hours Temp Pulse Resp BP Pulse Ox 04/09/18 11:42 97.3 F L 66 17 114/62 90 Results - Laboratory Findings CBC and BMP: 04/09/18 00:33 04/09/18 00:33 Abnormal lab findings: Abnormal lab results RBC 3.61 M/mcL (4.19-5.50) L 04/09/18 00:33 Hgb 11.9 g/dL (12.9-16.9) L 04/09/18 00:33 MCV 104.4 fL (83.0-100.0) H 04/09/18 00:33 RDW 17.2 % (11.5-14.5) H 04/09/18 00:33 Plt Count 57 K/mcL (140-400) L 04/09/18 00:33 Sodium 133 mEq/L (136-145) L 04/09/18 00:33 Chloride 94 mEq/L (98-107) L 04/09/18 00:33 BUN 44 mg/dL (8-23) H 04/09/18 00:33 Creatinine 5.78 mg/dL (0.70-1.30) H 04/09/18 00:33 Est GFR ( Amer) 12 (> 60) L 04/09/18 00:33 Est GFR (Non-Af Amer) 10 (> 60) L 04/09/18 00:33 Glucose 185 mg/dL (70-105) H 04/09/18 00:33 Troponin I 0.55 ng/mL (< 0.04) H* 04/09/18 06:38 B-Natriuretic Peptide 2711 pg/mL (Less than 100) H 04/08/18 13:46 RSV (PCR) DETECTED (Not Detect) A 04/08/18 17:40 - Clinical Findings Intake & Output: Intake & Output 04/08/18 04/09/18 04/09/18 23:59 07:59 15:59 Intake Total 720 / 720 250 / 250 Output Total 4600 / 4600 Balance -3880 / -3880 250 / 250 Weight 97 kg Consult Discharge Plan - Plan Referrals: Isidra Tate, MMI TEACHER [Primary Care Provider] - - Attending Attestation I examined this patient and my medical decision-making was reviewed with the Resident Physician. I agree with the documented findings, disposition and treatment plan as described except to the extent set forth below. Patient seen and examined. Labs, radiology, chart personally reviewed. 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 Discussed with the primary team regarding this patient. There is no role for inhaled antiviral and symptomatic management is recommended with empiric antibiotics for superimposed bacterial infections. We will add bronchodilators since patient has history of smoking and systemic steroid will be helpful since patient has symptoms of wheezing and also history of smoking with questionable COPD exacerbation in the differential diagnosis. No other intervention needed for pleural effusion. Titrate FiO2 to keep SPO2 around 90% and I am hoping patient will improve in next few days. Thank you for consultation and please call for any questions. <Mary Lanier N - Last Filed: 04/10/18 01:49> Date of Encounter: 04/10/18 Time of Encounter: 09:24 Assessment and Plan (1) Acute respiratory failure with hypoxia Current Visit: Yes Status: Acute Suspect multifactorial etiology, including RSV bronchitis and fluid overload. Patient may also have some underlying COPD due to his extensive smoking history. Plan: - Continue supportive therapy with bronchodilators and systemic corticosteroids - Continue supplemental oxygen therapy as needed to avoid recurrent hypoxia (2) RSV bronchitis Current Visit: Yes Status: Acute - Continue supplemental oxygen therapy titrated as needed to maintain oxygen saturation 88-92% - Continue inhaled bronchodilators (3) Pleural effusion Current Visit: No Status: Acute Likely secondary to longstanding CHF and current CHF exacerbation. Review of prior imaging studies reveals that the presence of bilateral pleural effusions has been noted, and his current imaging does not appear to be worse than what has been present in the past. Patient reports symptomatic improvement in his symptoms since his hospital admission, and appears to be clinically stable at this time. Plan: - No indication for thoracentesis at this time as patient does not appear to be symptomatic from this problem - Continue lasix diuresis and dialysis treatments for fluid removal - Consider outpatient followup in the pulmonology clinic after discharge (4) Congestive heart failure Current Visit: Yes Status: Acute - Continue diuresis and management per primary team. Qualifiers: Heart failure type: unspecified Qualified Code(s): I50.9 - Heart failure, unspecified (5) ESRD (end stage renal disease) on dialysis Current Visit: No Status: Chronic - Management via primary and nephrology teams History of Present Illness Consult date: 04/09/18 Requesting physician: Jasson Judd Reason for consult: pleural effusion Chief complaint: Weakness and fatigue History of present illness: Mr. Whitlock is a 77-year old male with a history of ESRD, chronic thrombocytopenia, hypothyroidism, hypertension, diabetes, and CHF. He presented to the ED due to increased shortness of breath and generalized weakness. ED workup revealed a positive RSV PCR, elevated BNP, and elevated troponin. He was admitted to the hospital for CHF exacerbation and viral bronchitis. CXR performed during ED workup demonstrated moderate left and small right pleural effusions with dependent left basilar volume loss, prompting pulmonology consult. Mild perihilar edema was also noted, which was thought to be related to his CHF. Patient was seen and evaluated at the bedside. He appears to be very lethargic; however, his son, who is present at the bedside, reports that this is normal for him the day after a dialysis treatment. He does report some increased exertional dyspnea over the last several days, with increased lower extremity edema as well. Patient denies any fevers, chills, productive cough, or increased chest congestion. He does have an extensive smoking history; however, he has cut back to approximately 4-5 per day. He does not require supplemental oxygen therapy at home; however, he is currently on 3.5L via nasal canula for hypoxia. Patient reports some improvement in his symptoms since he was admitted to the hospital and denies any other acute complaints or concerns at this time. Past Med Surg Social Fam HX - Past Medical History Medical history: cardiomyopathy, CHF, coronary artery disease, CVA, diabetes, dialysis, hyperlipidemia, hypertension, myocardial infarction, renal disease, other Additional medical history: heart murmur Psychiatric history: no psych history - Past Surgical History Surgical History: appendectomy, cholecystectomy, orthopedic, other Additional surgical history: right rotator cuff repair - Social History Smoking Status: Current every day smoker Smokeless Tobacco Status: No Alcohol use: none Drug use: none - Family History Father Adopted: No Family Member Ethnicity: Non- Living Status: Hx Family Cardiac Disorders: No Hx Family Respiratory Disorders: No Hx Family Cancer: No Hx Family GI Disorders: No Hx Family Endocrine Disorder: Yes Hx Family Neuromuscular Disorders: No Hx Family Neurologic Disorders: No Hx Family HEENT Disorders: No Hx Family Autoimmune Disorders: No Mother Adopted: No Family Member Ethnicity: Non- Living Status: Hx Family Cardiac Disorders: No Hx Family Respiratory Disorders: No Hx Family Cancer: No Hx Family GI Disorders: No Hx Family Endocrine Disorder: Yes (diabetes) Hx Family Neuromuscular Disorders: No Hx Family Neurologic Disorders: Yes (stroke and alzheimer) Hx Family HEENT Disorders: No Hx Family Autoimmune Disorders: No All Systems: The remainder of the systems were reviewed and are negative - Constitutional Constitutional: fatigue, weakness, no chills, no fever(s) - Cardiovascular Cardiovascular: dyspnea on exertion, edema, leg edema - Respiratory Respiratory: dyspnea, dyspnea on exertion, no chest congestion Physical Examination Vital Signs: Vital Signs, Last 4 Hours Temp Pulse Resp BP Pulse Ox 04/09/18 07:12 97.9 F 69 17 119/56 91 General appearance: no acute distress, alert Eyes: nonicteric ENT: oropharynx moist Effort: normal Inspection: normal Auscultation: bilateral: diminished breath sounds, wheezes Cardiovascular: regular rate and rhythm Integumentary: other (Skin changes on bilateral LE consistent with chronic venous stasis) Extremities: no cyanosis, no clubbing, pink and warm, edema Musculoskeletal: no deformities normal mental status, non-focal exam mood appropriate, affect normal Results - Laboratory Findings CBC and BMP: 04/09/18 00:33 04/09/18 00:33 Abnormal lab findings: Abnormal lab results RBC 3.61 M/mcL (4.19-5.50) L 04/09/18 00:33 Hgb 11.9 g/dL (12.9-16.9) L 04/09/18 00:33 MCV 104.4 fL (83.0-100.0) H 04/09/18 00:33 RDW 17.2 % (11.5-14.5) H 04/09/18 00:33 Plt Count 57 K/mcL (140-400) L 04/09/18 00:33 Sodium 133 mEq/L (136-145) L 04/09/18 00:33 Chloride 94 mEq/L (98-107) L 04/09/18 00:33 BUN 44 mg/dL (8-23) H 04/09/18 00:33 Creatinine 5.78 mg/dL (0.70-1.30) H 04/09/18 00:33 Est GFR ( Amer) 12 (> 60) L 04/09/18 00:33 Est GFR (Non-Af Amer) 10 (> 60) L 04/09/18 00:33 Glucose 185 mg/dL (70-105) H 04/09/18 00:33 Troponin I 0.55 ng/mL (< 0.04) H* 04/09/18 06:38 B-Natriuretic Peptide 2711 pg/mL (Less than 100) H 04/08/18 13:46 RSV (PCR) DETECTED (Not Detect) A 04/08/18 17:40 - Clinical Findings Intake & Output: Intake & Output 04/08/18 04/09/18 04/09/18 23:59 07:59 15:59 Intake Total 720 / 720 250 / 250 Output Total 4600 / 4600 Balance -3880 / -3880 250 / 250 Weight 97 kg
--- NOTE | 2018-04-09 09:34 | Electrocardiograph Report ---
[place] [id number] Test Date: 2018-04-08 Pat Name: Ousmane Whitlock Department: [id number] Room: 2A Gender: M Dianeticist: : 1940 Requested By: Nathan Lim Order Number: [id number] Reading MD: Tye Allison Measurements Intervals [place] Rate: 71 P: 47 LA: 213 QRS: -10 QRSD: 117 T: 151 QT: 390 QTc: 424 Interpretive Statements Sinus rhythm IVCD Lateral ST-T changes, consider ischemia Electronically Signed On 04-09-2018 9:32:49 EST by Tye Allison
--- NOTE | 2018-04-09 09:46 | Internal Med Progress Note ---
Hospitalist Progress Note - Encounter Date of Encounter: 04/09/18 Time of Encounter: 11:00 - Subjective Interval History: Patient with significant history of end-stage renal disease on hemodialysis, presented due to worsening dyspnea in addition to generalized weakness and fatigue found to have RSV on respiratory panel Patient also found to have moderate left pleural effusion with dependent left basilar volume loss. Patient with worsening expiratory wheezes on exam this morning per nursing staff Troponins were also elevated on admission but trending down In addition patient to go for hemodialysis due to end-stage renal disease - Exam Vitals: Temp Pulse Resp BP Pulse Ox 97.9 F 69 17 119/56 91 04/09/18 07:12 04/09/18 07:12 04/09/18 07:12 04/09/18 07:12 04/09/18 07:12 Exam: Gen.: Nonacute distress, alert and oriented 3 ENT: Mucosal membranes moist Respiratory: Bilateral diffuse expiratory wheezes Cardiovascular: Normal S1 and S2 regular rate rhythm no murmurs rubs or gallops Abdomen: Soft, nontender and nondistended with positive bowel sounds Extremities: No lower extremity edema Skin: Normal color - Assessment and Plan (1) RSV bronchitis Current Visit: Yes Status: Acute Assessment and Plan: Patient with acute hypoxic respiratory failure found to be positive for RSV on respiratory panel Patient with worsening wheezes on lung exam per staff this morning IV Solu-Medrol and scheduled DuoNeb's has been started Will consider adding Ribavarin inhaled but will discuss with pulmonology for recommendations (2) Acute respiratory failure with hypoxia Current Visit: Yes Status: Acute Assessment and Plan: Secondary to the above Patient requiring 3 L of nasal cannula this morning Will wean as tolerates (3) Elevated troponin Current Visit: Yes Status: Acute Assessment and Plan: Patient with elevated troponins on admission which are now trending downward: of 0.59-> 0.76->0.64->0.55 Discussed with fisher gill net on 04/08/18 who suspects elevated troponin secondary to end-stage renal disease as patient unable to clear troponins renally Suspect elevated troponin secondary to demand ischemia due to patient's acute hypoxic respiratory failure secondary to RSV Recommendations not to start patient on heparin drip per cardiology Will continue to trend serial troponins and monitor on telemetry (4) Congestive heart failure Current Visit: Yes Status: Acute Assessment and Plan: Patient with elevated BNP of 2711 an elevated troponin of 0.59 with bilateral pleural effusions and mild perihilar edema on chest x-ray Discussed with cardiology on 04/08/18 who suspects secondary to volume overload due to end-stage renal disease above Suspect due to acute hypoxic respiratory failure with RSV as stated above Will continue to trend serial troponins, which are trending downward, and monitor on telemetry Echocardiogram on 04/30/15 showed LVEF of 50-55% with mild left ventricular diastolic dysfunction and mild pulmonary hypertension with RVSP at 36 mmHg and a meeting gradient 12 mmHg Repeat echocardiogram pending (5) Pleural effusion Current Visit: No Status: Acute Assessment and Plan: Patient found to have moderate left and small right pleural effusion with dependent left basilar volume loss on chest x-ray Patient also requiring supplemental oxygenation due to acute hypoxic respiratory failure Pulmonology consulted and appreciate recommendations (6) ESRD (end stage renal disease) on dialysis Current Visit: No Status: Chronic Assessment and Plan: Patient with a creatinine of 5.45 with GFR of 10 on admission with a BUN of 38 and creatinine this morning 5.78 with a GFR of 8 and a BUN of 44 Chest x-ray also shows mild perihilar edema with bilateral pleural effusions Nephrology consulted and appreciate recommendations (7) Hyperglycemia due to type 2 diabetes mellitus Current Visit: No Status: Acute Assessment and Plan: Coverage with sliding scale insulin (8) Anemia in ESRD (end-stage renal disease) Current Visit: No Status: Chronic Assessment and Plan: Hemoglobin stable at 12.1 which appears to be at baseline (9) Thrombocytopenia Current Visit: No Status: Chronic Assessment and Plan: Patient follows with hematology oncology as an outpatient (10) Hypothyroid Current Visit: Yes Status: Acute Assessment and Plan: Patient found to have a TSH of 11.3 on admission He is currently on levothyroxine 112 g daily Will consider increasing dose of levothyroxine DVT Prophylaxis: SCDs - Time Spent with Patient Total time spent is greater than 50% in coordination of care (as documented) at patient's floor/unit and/or counseling patient: Internal Medicine: Result - Labs CBC & Chem 7: 04/09/18 00:33 04/09/18 00:33 Labs: Short CBC 04/08/18 04/09/18 Range/Units 13:46 00:33 WBC 7.8 6.4 (4.3-11.1) K/mcL Hgb 12.1 L 11.9 L (12.9-16.9) g/dL Hct 38.0 37.7 (37.5-50.1) % Plt Count 52 L 57 L (140-400) K/mcL Neutrophils # 5.8 4.4 (1.6-8.9) K/mcL BMP 04/08/18 04/09/18 13:46 00:33 Sodium 134 L 133 L Potassium 4.0 4.2 Chloride 93 L 94 L Carbon Dioxide 29 28 BUN 38 H 44 H Creatinine 5.45 H 5.78 H Glucose 128 H 185 H Calcium 8.8 8.8 Cardiac Enzymes 04/08/18 04/08/18 04/09/18 Range/Units 13:46 17:23 00:33 Troponin I 0.59 H* 0.76 H* 0.64 H* (< 0.04) ng/mL 04/09/18 Range/Units 06:38 Troponin I 0.55 H* (< 0.04) ng/mL - Impressions Impressions Head CT 04/08/18 15:37 IMPRESSION: No acute intracranial abnormality. Chronic microvascular ischemic changes. D/ / Hunter Mora / Hunter Mora Interpreting Provider: Hunter Mora Consult Discharge Plan - Plan Referrals: Isidra Tate, SOAKER HELPER [Primary Care Provider] - ___ (4) Congestive heart failure Qualifiers: Heart failure type: unspecified Qualified Code(s): I50.9 - Heart failure, unspecified (7) Hyperglycemia due to type 2 diabetes mellitus Qualifiers: Diabetes mellitus meterman insulin use: with shelter use Qualified Code(s): E11.65 - Type 2 diabetes mellitus with hyperglycemia; Z79.4 - [facility] (current) use of insulin
[2018-04-09] MEDS: Ipratropium/Albuterol Neb 3 ML IH SCH ×3 (10:21→21:19)
[2018-04-09] MEDS: Budesonide/Formoterol 160/4.5 1 PUFF INH IH SCH ×2 (10:36→21:19)
[2018-04-09] MEDS ORDERED: *HR* Dextrose 50 % in Water (Syg) 50 ML SYRINGE IVP PRN (12:55)
[2018-04-09] MEDS ORDERED: Dextrose Gel 15 GM/37.5 ML TUBE PO PRN ×2 (12:55)
[2018-04-09] MEDS ORDERED: D5% in Water 1,000 ML IVC PRN (12:55)
[2018-04-09] MEDS: MethylPREDNISolone 40 MG/ML VIAL IVP SCH ×3 (13:12→23:46)
[2018-04-09] MEDS: Insulin LISPRO 300 UNITS/3 ML VIAL SQ SCH ×2 (17:45→20:44)
--- NOTE | 2018-04-09 18:37 | Nephrology Progress Note ---
Date of Encounter: 04/09/18 Time of Encounter: 12:00 - Assessment and Plan (1) ESRD (end stage renal disease) Current Visit: Yes Status: Acute Continue HD with UF as tolerated s/p UF of 4kg yesterday Continue renal diet (2) Dyspnea Current Visit: Yes Status: Acute Multifactorial with positive RSV and fluid overload Pulm on board Qualifiers: Dyspnea type: dyspnea on exertion Qualified Code(s): R06.09 - Other forms of dyspnea (3) Pleural effusion Current Visit: No Status: Acute Might still need to be addressed with thoracentesis if still dyspneic after aggresive UF Subjective Interval history: Pt seen and examined before and during Hd today. s/p UF yesterday with imrpoved SOB but still quite wheezy with positive RSV Objective - Vital Signs Vital signs: Vital Signs Temp Pulse Resp BP Pulse Ox 04/09/18 18:00 78 18 122/59 91 04/09/18 17:42 97.8 F 18 113/58 04/09/18 17:20 101/56 04/09/18 17:05 103/57 04/09/18 16:50 102/56 04/09/18 16:35 104/58 04/09/18 16:20 106/51 04/09/18 16:05 109/56 04/09/18 15:50 102/50 04/09/18 15:35 102/52 04/09/18 15:20 92/45 04/09/18 15:05 87/40 04/09/18 14:50 94/43 04/09/18 14:35 91/45 04/09/18 14:20 106/59 04/09/18 14:05 100/76 04/09/18 13:50 97.7 F 18 114/62 04/09/18 11:42 97.3 F L 66 17 114/62 90 04/09/18 11:00 18 92 04/09/18 07:12 97.9 F 69 17 119/56 91 04/09/18 04:15 98.1 F 59 17 110/47 95 04/09/18 00:05 98.7 F 80 16 125/65 95 04/08/18 21:26 97.4 F L 18 110/54 04/08/18 21:05 98/52 01/03/19 20:50 94/54 04/08/18 20:35 98/53 04/08/18 20:20 102/51 04/08/18 20:05 106/54 04/08/18 19:50 111/56 04/08/18 19:35 118/55 04/08/18 19:20 112/64 04/08/18 19:05 97.5 F L 18 118/58 Intake and Output 04/09/18 04/09/18 04/09/18 07:59 15:59 23:59 Intake Total 850 / 850 Output Total 3600 / 3600 Balance 850 / 850 -3600 / -3600 Intake: Oral 250 / 250 Intake, Rinseback and Flushes 600 / 600 Output: Total Dialysis (HD) Output 3600 / 3600 Other: Meal Breakfast Percent of Meal Consumed 100% Stool Size Small Stool Consistency loose Stool Color Brown Black Blood Glucose* 163 Hemodialysis Net Fluid Removed 2285 3000 (mL) - General Appearance General appearance: Present: chronically ill EENT: Present: ATNC, mucous membranes moist Neck: Present: no JVD, supple Respiratory: Present: wheezing (improved) Cardiology: Present: edema (improved LE bilat), normal S1, normal S2 Dialysis Vascular Access: Arteriovenous Fistula thrill: Yes bruit: Yes Gastrointestinal: Present: no tenderness, no guarding Integumentary: Present: warm and dry, chronic venous stasis Neurologic: Present: no focal deficit Musculoskeletal: Present: no deformities Psychiatric: Present: mood/affect appropriate - Lab 04/11/18 03:18 04/11/18 03:18 Most recent lab results Calcium 8.8 mg/dL (8.6-10.3) 04/09/18 00:33 Consult Discharge Plan - Plan Referrals: Isidra Tate, DIRECTOR OF ENTERPRISE STRATEGY [Primary Care Provider] -
[2018-04-10] MEDS: Ipratropium/Albuterol Neb 3 ML IH SCH ×4 (04:06→21:12)
[2018-04-10] MEDS: MethylPREDNISolone 40 MG/ML VIAL IVP SCH ×4 (05:50→23:53)
[2018-04-10] MEDS: Vitamin B Complex/Vit C/Vit E 1 EACH TABLET PO SCH (08:28)
[2018-04-10] MEDS: Calcium Acetate 667 MG CAPSULE PO SCH ×3 (08:28→17:00)
[2018-04-10] MEDS: Insulin LISPRO 300 UNITS/3 ML VIAL SQ SCH ×4 (08:29→22:23)
--- NOTE | 2018-04-10 08:41 | Internal Med Progress Note ---
Hospitalist Progress Note - Encounter Date of Encounter: 04/10/18 Time of Encounter: 11:00 - Subjective Interval History: Patient with significant history of end-stage renal disease on hemodialysis, presented due to worsening dyspnea in addition to generalized weakness and fatigue found to have RSV on respiratory panel Patient still requiring supplemental oxygenation due to acute hypoxic respiratory failure secondary to RSV - Exam Vitals: Temp Pulse Resp BP Pulse Ox 97.4 F L 75 16 140/57 96 04/10/18 07:18 04/10/18 07:18 04/10/18 07:18 04/10/18 07:18 04/10/18 07:18 Exam: Gen.: Nonacute distress, alert and oriented 3 ENT: Mucosal membranes moist Respiratory: Lungs clear to auscultation bilaterally without any noted wheezing rhonchi or rales Cardiovascular: Normal S1 and S2 regular rate rhythm no murmurs rubs or gallops Abdomen: Soft, nontender and nondistended with positive bowel sounds Extremities: No lower extremity edema Skin: Normal color - Assessment and Plan (1) RSV bronchitis Current Visit: Yes Status: Acute Assessment and Plan: Patient with acute hypoxic respiratory failure found to be positive for RSV on respiratory panel Patient with wheezes on lung exam per staff this morning Will continue supportive care with IV Solu-Medrol and scheduled DuoNeb's has been started (2) Acute respiratory failure with hypoxia Current Visit: Yes Status: Acute Assessment and Plan: Secondary to the above Patient requiring 4 L of nasal cannula this morning Will wean as tolerates (3) Elevated troponin Current Visit: Yes Status: Acute Assessment and Plan: Patient with elevated troponins on admission which are now trending downward: of 0.59-> 0.76->0.64->0.55-0.52 Suspect elevated troponin secondary to demand ischemia due to patient's acute hypoxic respiratory failure secondary to RSV Will continue to monitor on telemetry (4) Congestive heart failure Current Visit: Yes Status: Acute Assessment and Plan: Patient with elevated BNP of 2711 an elevated troponin of 0.59 with bilateral pleural effusions and mild perihilar edema on chest x-ray Discussed with cardiology on 04/08/18 who suspects secondary to volume overload due to end-stage renal disease above Suspect also due to acute hypoxic respiratory failure with RSV as stated above Echocardiogram on 04/30/15 showed LVEF of 50-55% with mild left ventricular diastolic dysfunction and mild pulmonary hypertension with RVSP at 36 mmHg and a meeting gradient 12 mmHg Repeat echocardiogram showed LVEF of 55% with mild left ventricular diastolic dysfunction in addition to moderate aortic stenosis; 23 mmHg with peak velocity of 3.08 m/s; moderate pulmonary hypertension also noted with estimated RVSP 46- 56 mmHg Will continue to monitor (5) Pleural effusion Current Visit: No Status: Acute Assessment and Plan: Patient found to have moderate left and small right pleural effusion with dependent left basilar volume loss on chest x-ray Patient also requiring supplemental oxygenation due to acute hypoxic respiratory failure Pulmonology consulted with recommendations for no intervention at this time (6) ESRD (end stage renal disease) on dialysis Current Visit: No Status: Chronic Assessment and Plan: Serum creatinine:5.45->5.78-> GFR:10 BUN:38->44-> Chest x-ray also shows mild perihilar edema with bilateral pleural effusions Nephrology consulted and patient has already received ultrafiltration in addition to scheduled hemodialysis Appreciate any further recommendations (7) Hyperglycemia due to type 2 diabetes mellitus Current Visit: No Status: Acute Assessment and Plan: Coverage with sliding scale insulin (8) Anemia in ESRD (end-stage renal disease) Current Visit: No Status: Chronic Assessment and Plan: Hemoglobin stable; continue to monitor (9) Thrombocytopenia Current Visit: No Status: Chronic Assessment and Plan: Patient follows with hematology oncology as an outpatient (10) Hypothyroid Current Visit: Yes Status: Acute Assessment and Plan: Patient found to have a TSH of 11.3 on admission He is currently on levothyroxine 112 g daily Will consider increasing dose of levothyroxine DVT Prophylaxis: SCDs - Time Spent with Patient Total time spent is greater than 50% in coordination of care (as documented) at patient's floor/unit and/or counseling patient: Internal Medicine: Result - Labs CBC & Chem 7: 04/10/18 09:03 04/10/18 09:03 Labs: Cardiac Enzymes 04/09/18 Range/Units 15:05 Troponin I 0.52 H* (< 0.04) ng/mL - Impressions Impressions Echocardiogram 04/08/18 17:06 Impressions: LVEF 55%. Normal LV chamber size, wall thickness and function. Mild concentric left ventricular hypertrophy. Mild left ventricular diastolic dysfunction. Moderately dilated and mildly hypokinetic right ventricle. Moderately calcified aortic valve leaflets. Unable to determine the number of leaflets. Moderate aortic stenosis. 23 mmHg. Peak velocity 3.08 m/s. Mild tricuspid regurgitation. Moderate pulmonary hypertension. Estimated RVSP 46-56 mmHg. Left Ventricular Wall Motion: Rest Echo Findings All wall segments showed normal motion. Findings: Study Quality * Technically adequate exam. ECG Findings * Normal sinus rhythm. Left Ventricle * LVEF 55%. * Normal LV chamber size, wall thickness and function. * Mild concentric left ventricular hypertrophy. * Mild left ventricular diastolic dysfunction. Right Ventricle * Moderately dilated and mildly hypokinetic right ventricle. Left Atrium * Moderately dilated left atrium. Right Atrium * Severely dilated right atrium. Aortic Valve * Moderately calcified aortic valve leaflets. Unable to determine the number of leaflets. * No aortic regurgitation. * Moderate aortic stenosis. 23 mmHg. Peak velocity 3.08 m/s. Mitral Valve * Mild mitral annular calcification * No mitral regurgitation. * No mitral stenosis. Tricuspid Valve * Normal tricuspid valve structure. * Mild tricuspid regurgitation. * Moderate pulmonary hypertension. Estimated RVSP 46-56 mmHg. Pulmonic Valve * Normal pulmonic valve structure and function. * Trace pulmonic regurgitation. Aorta * Normally sized aortic root. Pericardium * There is a trivial pericardial effusion present. IVC * The IVC is not dilated. * < 50% respiratory change. Pulmonary Artery * Normal visualized portions of the main pulmonary artery. Consult Discharge Plan - Plan Referrals: Isidra Tate, FILM BOOKER [Primary Care Provider] - (4) Congestive heart failure Qualifiers: Heart failure type: unspecified Qualified Code(s): I50.9 - Heart failure, unspecified (7) Hyperglycemia due to type 2 diabetes mellitus Qualifiers: Diabetes mellitus moth exterminator insulin use: with shelter use Qualified Code(s): E11.65 - Type 2 diabetes mellitus with hyperglycemia; Z79.4 - moth exterminator (current) use of insulin
[2018-04-10 09:24] LABS: Hematocrit 40.5 % (37.5-50.1); Hemoglobin 12.6 g/dL (12.9-16.9); Immature Granulocytes % 0.7 % (0-4); Immature Platelets 3.3 % (1.1-6.1); Lymphocytes # 0.2 K/mcL (0.6-4.6); Lymphocytes % 4.2 %; Mean Corpuscular HGB Conc 31.1 g/dL (31.6-35.5); Mean Corpuscular Hemoglobin 32.6 pg (28.0-33.3); Mean Corpuscular Volume 104.9 fL (83.0-100.0); Mean Platelet Volume 10.8 fL (9.4-12.4); Monocytes # 0.1 K/mcL (0.0-1.3); Monocytes % 2.6 %; Red Blood Count 3.86 M/mcL (4.19-5.50); Red Cell Distribution Width 16.8 % (11.5-14.5); Segmented Neutrophils % 92.5 %
[2018-04-10 09:26] LABS: Platelet Count 59 K/mcL (140-400)
[2018-04-10 09:40] LABS: Potassium 4.4 mEq/L (3.5-5.1)
--- NOTE | 2018-04-10 10:50 | Nephrology Progress Note ---
Date of Encounter: 04/10/18 Time of Encounter: 12:00 - Assessment and Plan (1) ESRD (end stage renal disease) Current Visit: Yes Status: Acute s/p HD yesterday with next planned for thursday Continue renal diet (2) Dyspnea Current Visit: Yes Status: Acute Multifactorial with positive RSV and fluid overload, slowly after UF Pulm on board Echo showed EF 55% with moderate and moderate pulmHTN, will need cardiology followup outpatient Qualifiers: Dyspnea type: dyspnea on exertion Qualified Code(s): R06.09 - Other forms of dyspnea (3) Pleural effusion Current Visit: No Status: Acute Might still need to be addressed with thoracentesis if still dyspneic after aggresive UF but will defer to pulm Subjective Interval history: Pt seen and examined s/p back to back UF and HD with 7kg UF in 2 days, feels better with less oxygen requirement from 4 to 2liters NC Objective - Vital Signs Vital signs: Vital Signs Temp Pulse Resp BP Pulse Ox 04/10/18 07:18 97.4 F L 75 16 140/57 96 04/10/18 05:02 97.7 F 71 16 124/52 98 04/10/18 04:06 16 93 04/09/18 23:56 98.0 F 68 17 114/56 91 04/09/18 21:21 16 91 04/09/18 20:55 90 04/09/18 20:05 98.4 F 65 16 116/59 90 04/09/18 18:00 78 18 122/59 91 04/09/18 17:42 97.8 F 18 113/58 04/09/18 17:20 101/56 04/09/18 17:05 103/57 04/09/18 16:50 102/56 04/09/18 16:35 104/58 04/09/18 16:20 106/51 04/09/18 16:05 109/56 04/09/18 15:50 102/50 04/09/18 15:35 102/52 04/09/18 15:20 92/45 04/09/18 15:05 87/40 04/09/18 14:50 94/43 04/09/18 14:35 91/45 04/09/18 14:20 106/59 04/09/18 14:05 100/76 04/09/18 13:50 97.7 F 18 114/62 04/09/18 11:42 97.3 F L 66 17 114/62 90 04/09/18 11:00 18 92 Intake and Output 04/09/18 04/10/18 04/10/18 23:59 07:59 15:59 Intake Total 840 / 840 100 / 100 Output Total 3600 / 3600 0 / 0 Balance -2760 / -2760 100 / 100 Intake: Oral 840 / 840 100 / 100 Output: Urine 0 / 0 0 / 0 Total Dialysis (HD) Output 3600 / 3600 Other: Meal Dinner Percent of Meal Consumed 5% Stool Size Small Stool Consistency loose Stool Color Brown Black Weight 89.8 kg Blood Glucose* 253 334 Hemodialysis Net Fluid Removed 3000 (mL) Patient Weight 04/10/18 23:59 Weight 89.8 kg - General Appearance General appearance: Present: chronically ill EENT: Present: ATNC, mucous membranes moist Neck: Present: no JVD, supple Additional Comments: improved areation ant bilat with minimal wheezes Cardiology: Present: edema (improved LE bilat), normal S1, normal S2 Dialysis Vascular Access: Arteriovenous Fistula thrill: Yes bruit: Yes Gastrointestinal: Present: no tenderness, no guarding Integumentary: Present: warm and dry, chronic venous stasis Neurologic: Present: no focal deficit Musculoskeletal: Present: no deformities Psychiatric: Present: mood/affect appropriate - Lab 04/11/18 03:18 04/11/18 03:18 Most recent lab results Calcium 9.0 mg/dL (8.6-10.3) 04/10/18 09:03 Consult Discharge Plan - Plan Referrals: Isidra Tate VEGETABLE LOADER MACHINE OPERATOR [Primary Care Provider] -
[2018-04-10] MEDS: Budesonide/Formoterol 160/4.5 1 PUFF INH IH SCH ×2 (11:22→21:12)
[2018-04-11] MEDS: Ipratropium/Albuterol Neb 3 ML IH SCH ×4 (03:54→22:36)
[2018-04-11 04:08] LABS: Red Cell Distribution Width 16.2 % (11.5-14.5)
[2018-04-11 04:10] LABS: Hematocrit 36.5 % (37.5-50.1); Hemoglobin 11.9 g/dL (12.9-16.9); Mean Corpuscular HGB Conc 32.6 g/dL (31.6-35.5); Mean Corpuscular Hemoglobin 33.2 pg (28.0-33.3); Mean Platelet Volume 10.8 fL (9.4-12.4); Red Blood Count 3.58 M/mcL (4.19-5.50)
[2018-04-11 04:26] LABS: Calcium 9.3 mg/dL (8.6-10.3); Potassium 4.6 mEq/L (3.5-5.1)
[2018-04-11] MEDS: MethylPREDNISolone 40 MG/ML VIAL IVP SCH ×4 (05:11→22:41)
[2018-04-11] MEDS: Calcium Acetate 667 MG CAPSULE PO SCH ×3 (07:43→17:01)
[2018-04-11] MEDS: Vitamin B Complex/Vit C/Vit E 1 EACH TABLET PO SCH (07:43)
[2018-04-11] MEDS: Insulin LISPRO 300 UNITS/3 ML VIAL SQ SCH ×4 (07:43→22:41)
--- NOTE | 2018-04-11 08:58 | Internal Med Progress Note ---
Hospitalist Progress Note - Encounter Date of Encounter: 04/11/18 Time of Encounter: 11:00 - Subjective Interval History: Patient with significant history of end-stage renal disease on hemodialysis, presented due to worsening dyspnea in addition to generalized weakness and fatigue found to have RSV on respiratory panel Patient has been weaned down on supplemental oxygenation but still requiring 2- 1/2 L of nasal cannula this morning. Plan to wean off O2 supplementation today if tolerates - Exam Vitals: Temp Pulse Resp BP Pulse Ox 97.8 F 86 18 139/59 89 04/11/18 07:19 04/11/18 07:19 04/11/18 07:19 04/11/18 07:19 04/11/18 07:19 Exam: Gen.: Nonacute distress, alert and oriented 3 ENT: Mucosal membranes moist Respiratory: Lungs clear to auscultation bilaterally without any noted wheezing rhonchi or rales Cardiovascular: Normal S1 and S2 regular rate rhythm no murmurs rubs or gallops Abdomen: Soft, nontender and nondistended with positive bowel sounds Extremities: No lower extremity edema Skin: Normal color - Assessment and Plan (1) RSV bronchitis Current Visit: Yes Status: Acute Assessment and Plan: Patient with acute hypoxic respiratory failure found to be positive for RSV on respiratory panel Patient has been weaned down on supplemental oxygenation but still requiring 2- 1/2 L of nasal cannula this morning. Plan to wean off O2 supplementation today if tolerates Will continue supportive care with IV Solu-Medrol and scheduled DuoNeb's has been started (2) Acute respiratory failure with hypoxia Current Visit: Yes Status: Acute Assessment and Plan: Secondary to and plan as above. (3) Elevated troponin Current Visit: Yes Status: Acute Assessment and Plan: Patient with elevated troponins on admission which are now trending downward: of 0.59-> 0.76->0.64->0.55-0.52 Suspect elevated troponin secondary to demand ischemia due to patient's acute hypoxic respiratory failure secondary to RSV Will continue to monitor on telemetry (4) Congestive heart failure Current Visit: Yes Status: Acute Assessment and Plan: Patient with elevated BNP of 2711 an elevated troponin of 0.59 with bilateral pleural effusions and mild perihilar edema on chest x-ray Discussed with cardiology on 04/08/18 who suspects secondary to volume overload due to end-stage renal disease above Suspect also due to acute hypoxic respiratory failure with RSV as stated above Echocardiogram on 04/30/15 showed LVEF of 50-55% with mild left ventricular natalio stolic dysfunction and mild pulmonary hypertension with RVSP at 36 mmHg and a meeting gradient 12 mmHg Repeat echocardiogram showed LVEF of 55% with mild left ventricular diastolic dysfunction in addition to moderate aortic stenosis; 23 mmHg with peak velocity of 3.08 m/s; moderate pulmonary hypertension also noted with estimated RVSP 46- 56 mmHg Will continue to monitor (5) Pleural effusion Current Visit: No Status: Acute Assessment and Plan: Patient found to have moderate left and small right pleural effusion with dependent left basilar volume loss on chest x-ray Patient also requiring supplemental oxygenation due to acute hypoxic respiratory failure Pulmonology consulted with recommendations for no intervention at this time (6) ESRD (end stage renal disease) on dialysis Current Visit: No Status: Chronic Assessment and Plan: Serum creatinine:5.45->5.78->->5.14->5.95 GFR 9 BUN 61 Chest x-ray also shows mild perihilar edema with bilateral pleural effusions Nephrology following and appreciate recommendations (7) Hyperglycemia due to type 2 diabetes mellitus Current Visit: No Status: Acute Assessment and Plan: Coverage with sliding scale insulin (8) Anemia in ESRD (end-stage renal disease) Current Visit: No Status: Chronic Assessment and Plan: Hemoglobin stable; continue to monitor (9) Thrombocytopenia Current Visit: No Status: Chronic Assessment and Plan: Patient follows with hematology oncology as an outpatient (10) Hypothyroid Current Visit: Yes Status: Acute Assessment and Plan: Patient found to have a TSH of 11.3 on admission He is currently on levothyroxine 112 g daily Will consider increasing dose of levothyroxine DVT Prophylaxis: SCDs - Time Spent with Patient Total time spent is greater than 50% in coordination of care (as documented) at patient's floor/unit and/or counseling patient: Internal Medicine: Result - Labs CBC & Chem 7: 04/11/18 03:18 04/11/18 03:18 Labs: Short CBC 04/10/18 04/11/18 Range/Units 09:03 03:18 WBC 4.3 7.4 D (4.3-11.1) K/mcL Hgb 12.6 L 11.9 L (12.9-16.9) g/dL Hct 40.5 36.5 L (37.5-50.1) % Plt Count 59 L 69 L (140-400) K/mcL Neutrophils # 4.0 (1.6-8.9) K/mcL BMP 04/10/18 04/11/18 09:03 03:18 Sodium 131 L 132 L Potassium 4.4 4.6 Chloride 92 L 92 L Carbon Dioxide 27 24 BUN 43 H 61 H Creatinine 5.14 H 5.95 H Glucose 380 H 324 H Calcium 9.0 9.3 - VTE Documentation of Mechanical Device: Intermittent pneumatic compression device Consult Discharge Plan - Plan Referrals: Isidra Tate, BOATBUILDER SUPERVISOR [Primary Care Provider] - (4) Congestive heart failure Qualifiers: Heart failure type: unspecified Qualified Code(s): I50.9 - Heart failure, unspecified (7) Hyperglycemia due to type 2 diabetes mellitus Qualifiers: Diabetes mellitus machine long goods helper insulin use: with machine long goods helper use Qualified Code(s): E11.65 - Type 2 diabetes mellitus with hyperglycemia; Z79.4 - senior care (current) use of insulin
[2018-04-11] MEDS: Budesonide/Formoterol 160/4.5 1 PUFF INH IH SCH ×2 (09:51→22:36)
[2018-04-11] MEDS: Azithromycin 250 MG TABLET PO SCH (14:35)
[2018-04-12] MEDS: Ipratropium/Albuterol Neb 3 ML IH SCH ×4 (03:48→22:40)
[2018-04-12] MEDS: MethylPREDNISolone 40 MG/ML VIAL IVP SCH ×4 (05:53→23:50)
[2018-04-12 06:09] LABS: Hematocrit 35.6 % (37.5-50.1); Hemoglobin 11.7 g/dL (12.9-16.9); Mean Corpuscular HGB Conc 32.9 g/dL (31.6-35.5); Mean Corpuscular Hemoglobin 32.8 pg (28.0-33.3); Mean Corpuscular Volume 99.7 fL (83.0-100.0); Mean Platelet Volume 10.2 fL (9.4-12.4); Red Blood Count 3.57 M/mcL (4.19-5.50); Red Cell Distribution Width 16.2 % (11.5-14.5)
[2018-04-12 06:10] LABS: Platelet Count 55 K/mcL (140-400)
[2018-04-12 06:26] LABS: Calcium 9.3 mg/dL (8.6-10.3)
[2018-04-12] MEDS: Calcium Acetate 667 MG CAPSULE PO SCH ×3 (08:23→16:59)
[2018-04-12] MEDS: Insulin LISPRO 300 UNITS/3 ML VIAL SQ SCH ×4 (08:23→20:47)
[2018-04-12] MEDS: Vitamin B Complex/Vit C/Vit E 1 EACH TABLET PO SCH (08:23)
[2018-04-12] MEDS ORDERED: 0.9 % Sodium Chloride 250 ML IVC PRN (08:49)
--- NOTE | 2018-04-12 10:01 | Nephrology Progress Note ---
Addendum entered and electronically signed by Talat Cid MD 04/12/18 20:52: I examined this patient and discussed the medical decision-making with KENDRA Redman. I agree with the documented findings, disposition and treatment plan as described except to the extent set forth below. Patient seen on dialysis. Original Note: Date of Encounter: 04/12/18 Time of Encounter: 09:58 - Assessment and Plan (1) ESRD (end stage renal disease) Current Visit: Yes Status: Acute HD in progress for today. Continue renal diet Avoid nephrotoxins and renal dose. Strict I/O. (2) Pleural effusion Current Visit: No Status: Acute Per pulm,no intervention at this time. (3) Dyspnea Current Visit: Yes Status: Acute Multifactorial with positive RSV and fluid overload, HD in progress today. Pulm on board Echo showed EF 55% with moderate and moderate pulmHTN, will need cardiology followup outpatient Qualifiers: Dyspnea type: dyspnea on exertion Qualified Code(s): R06.09 - Other forms of dyspnea Subjective Principal diagnosis: difficulty in breathing Interval history: Pt seen and examined during HD, tolerating well. Pt is confused this am. Denies any issues this morning. Objective - Vital Signs Vital signs: Vital Signs Temp Pulse Resp BP Pulse Ox 04/12/18 07:33 98.3 F 90 22 148/71 88 04/12/18 03:48 16 93 04/12/18 03:40 98.2 F 78 18 151/67 97 04/12/18 00:01 97.7 F 80 18 160/77 92 04/11/18 22:56 92 04/11/18 22:37 20 90 04/11/18 19:21 99.2 F 73 18 150/65 91 04/11/18 16:09 98.2 F 67 138/61 90 04/11/18 15:40 98.6 F 76 16 163/64 93 04/11/18 15:19 18 92 04/11/18 11:41 98.5 F 75 18 147/64 92 Intake and Output 04/11/18 04/12/18 04/12/18 23:59 07:59 15:59 Other: Weight 86.455 kg Blood Glucose* 252 292 Patient Weight 04/12/18 23:59 Weight 86.455 kg - General Appearance General appearance: Present: well-developed, well-nourished EENT: Present: ATNC, hearing intact, vision intact Neck: Present: supple Respiratory: Present: clear Cardiology: Present: edema (+1 pitting edema noted to bilat lower extremities. ), normal S1, normal S2 Dialysis Vascular Access: Arteriovenous Fistula thrill: Yes bruit: Yes Gastrointestinal: Present: normoactive bowel sounds, no tenderness, no guarding Integumentary: Present: erythema (noted to bilat lower extremities.) Neurologic: Present: confused Psychiatric: Present: mood/affect appropriate, cooperative - Lab 04/12/18 05:10 04/12/18 05:10 Most recent lab results Calcium 9.3 mg/dL (8.6-10.3) 04/12/18 05:10 - VTE Documentation of Mechanical Device: Intermittent pneumatic compression device Consult Discharge Plan - Plan Referrals: Isidra Tate, VENETIAN BLIND WASHER [Primary Care Provider] -
--- NOTE | 2018-04-12 10:51 | Internal Med Progress Note ---
Hospitalist Progress Note - Encounter Date of Encounter: 04/12/18 Time of Encounter: 11:00 - Subjective Interval History: Patient with significant history of end-stage renal disease on hemodialysis, presented due to worsening dyspnea in addition to generalized weakness and fatigue found to have RSV on respiratory panel Still not able to wean patient off supplemental oxygenation requiring 3.5-4 L of nasal cannula this morning - Exam Vitals: Temp Pulse Resp BP Pulse Ox 98.3 F 90 22 148/71 88 04/12/18 07:33 04/12/18 07:33 04/12/18 07:33 04/12/18 07:33 04/12/18 07:33 Exam: Gen.: Nonacute distress, alert and oriented 3 ENT: Mucosal membranes moist Respiratory: Lungs clear to auscultation bilaterally without any noted wheezing rhonchi or rales Cardiovascular: Normal S1 and S2 regular rate rhythm no murmurs rubs or gallops Abdomen: Soft, nontender and nondistended with positive bowel sounds Extremities: No lower extremity edema Skin: Normal color - Assessment and Plan (1) RSV bronchitis Current Visit: Yes Status: Acute Assessment and Plan: Patient with acute hypoxic respiratory failure found to be positive for RSV on respiratory panel Still not able to wean patient off supplemental oxygenation requiring 3.5-4 L of nasal cannula this morning Will order CT of the chest for further evaluation Plan to wean off O2 supplementation today if tolerates Will continue supportive care with IV Solu-Medrol and scheduled DuoNeb's (2) Acute respiratory failure with hypoxia Current Visit: Yes Status: Acute Assessment and Plan: Secondary to and plan as above. (3) Elevated troponin Current Visit: Yes Status: Acute Assessment and Plan: Patient with elevated troponins on admission which are now trending downward: of 0.59-> 0.76->0.64->0.55-0.52 Suspect elevated troponin secondary to demand ischemia due to patient's acute hypoxic respiratory failure secondary to RSV Will continue to monitor on telemetry (4) Congestive heart failure Current Visit: Yes Status: Acute Assessment and Plan: Patient with elevated BNP of 2711 an elevated troponin of 0.59 with bilateral pleural effusions and mild perihilar edema on chest x-ray Discussed with cardiology on 04/08/18 who suspects secondary to volume overload due to end-stage renal disease above Suspect also due to acute hypoxic respiratory failure with RSV as stated above Echocardiogram on 04/30/15 showed LVEF of 50-55% with mild left ventricular diastolic dysfunction and mild pulmonary hypertension with RVSP at 36 mmHg and a meeting gradient 12 mmHg Repeat echocardiogram showed LVEF of 55% with mild left ventricular diastolic dysfunction in addition to moderate aortic stenosis; 23 mmHg with peak velocity of 3.08 m/s; moderate pulmonary hypertension also noted with estimated RVSP 46- 56 mmHg Will continue to monitor (5) Pleural effusion Current Visit: No Status: Acute Assessment and Plan: Patient found to have moderate left and small right pleural effusion with dependent left basilar volume loss on chest x-ray Patient also requiring supplemental oxygenation due to acute hypoxic respiratory failure Pulmonology consulted with recommendations for no intervention at this time (6) ESRD (end stage renal disease) on dialysis Current Visit: No Status: Chronic Assessment and Plan: Serum creatinine:5.45->5.78->->5.14->5.95 GFR 9 BUN 61 Chest x-ray also shows mild perihilar edema with bilateral pleural effusions Nephrology following and appreciate recommendations (7) Hyperglycemia due to type 2 diabetes mellitus Current Visit: No Status: Acute Assessment and Plan: Coverage with sliding scale insulin (8) Anemia in ESRD (end-stage renal disease) Current Visit: No Status: Chronic Assessment and Plan: Hemoglobin stable; continue to monitor (9) Thrombocytopenia Current Visit: No Status: Chronic Assessment and Plan: Patient follows with hematology oncology as an outpatient (10) Hypothyroid Current Visit: Yes Status: Acute Assessment and Plan: Continue home dose of levothyroxine DVT Prophylaxis: SCDs - Time Spent with Patient Total time spent is greater than 50% in coordination of care (as documented) at patient's floor/unit and/or counseling patient: Internal Medicine: Result - Labs CBC & Chem 7: 04/12/18 05:10 04/12/18 05:10 Labs: Short CBC 04/12/18 Range/Units 05:10 WBC 6.7 (4.3-11.1) K/mcL Hgb 11.7 L (12.9-16.9) g/dL Hct 35.6 L (37.5-50.1) % Plt Count 55 L (140-400) K/mcL BMP 04/12/18 05:10 Sodium 128 L Potassium 5.0 Chloride 91 L Carbon Dioxide 22 L BUN 91 H Creatinine 7.44 H Glucose 301 H Calcium 9.3 - VTE Documentation of Mechanical Device: Intermittent pneumatic compression device Consult Discharge Plan - Plan Referrals: Isidra Tate, STAMP REDEMPTION CLERK [Primary Care Provider] - (4) Congestive heart failure Qualifiers: Heart failure type: unspecified Qualified Code(s): I50.9 - Heart failure, unspecified (7) Hyperglycemia due to type 2 diabetes mellitus Qualifiers: Diabetes mellitus assisted insulin use: with assisted use Qualified Code(s): E11.65 - Type 2 diabetes mellitus with hyperglycemia; Z79.4 - penitentiary (current) use of insulin
[2018-04-12] MEDS: Budesonide/Formoterol 160/4.5 1 PUFF INH IH SCH ×2 (11:29→22:40)
[2018-04-12] MEDS: Azithromycin 250 MG TABLET PO SCH (12:10)
[2018-04-13] MEDS: Ipratropium/Albuterol Neb 3 ML IH SCH ×4 (03:55→22:22)
[2018-04-13 05:42] LABS: Mean Corpuscular Volume 101.3 fL (83.0-100.0)
[2018-04-13 05:44] LABS: Hematocrit 38.5 % (37.5-50.1); Hemoglobin 12.3 g/dL (12.9-16.9); Immature Platelets 1.5 % (1.1-6.1); Mean Corpuscular HGB Conc 31.9 g/dL (31.6-35.5); Mean Corpuscular Hemoglobin 32.4 pg (28.0-33.3); Mean Platelet Volume 9.2 fL (9.4-12.4); Red Blood Count 3.8 M/mcL (4.19-5.50); Red Cell Distribution Width 16.7 % (11.5-14.5)
[2018-04-13] MEDS: MethylPREDNISolone 40 MG/ML VIAL IVP SCH ×4 (05:57→23:46)
[2018-04-13 06:06] LABS: Calcium 9.3 mg/dL (8.6-10.3); Potassium 4.9 mEq/L (3.5-5.1)
--- NOTE | 2018-04-13 08:18 | Internal Med Progress Note ---
Hospitalist Progress Note - Encounter Date of Encounter: 04/13/18 Time of Encounter: 11:00 - Subjective Interval History: Patient with significant history of end-stage renal disease on hemodialysis, presented due to worsening dyspnea in addition to generalized weakness and fatigue found to have RSV on respiratory panel Patient's acute hypoxic respiratory failure without any improvement still requiring 4 L of nasal cannula CT of the chest demonstrated enlarging infusion Pulmonology has been consulted for evaluation - Exam Vitals: Temp Pulse Resp BP Pulse Ox 97.6 F 73 18 130/62 100 04/13/18 07:51 04/13/18 07:51 04/13/18 07:51 04/13/18 07:51 04/13/18 07:51 Exam: Gen.: Nonacute distress, alert and oriented 3 ENT: Mucosal membranes moist Respiratory: Lungs clear to auscultation bilaterally without any noted wheezing rhonchi or rales Cardiovascular: Normal S1 and S2 regular rate rhythm no murmurs rubs or gallops Abdomen: Soft, nontender and nondistended with positive bowel sounds Extremities: No lower extremity edema Skin: Normal color - Assessment and Plan (1) RSV bronchitis Current Visit: Yes Status: Acute Assessment and Plan: Patient with acute hypoxic respiratory failure found to be positive for RSV on respiratory panel Patient's acute hypoxic respiratory failure without any improvement still requiring 4 L of nasal cannula CT of the chest demonstrated enlarging infusion Pulmonology has been consulted for evaluation (2) Acute respiratory failure with hypoxia Current Visit: Yes Status: Acute Assessment and Plan: Secondary to and plan as above. (3) Elevated troponin Current Visit: Yes Status: Acute Assessment and Plan: Patient with elevated troponins on admission which are now trending downward: of 0.59-> 0.76->0.64->0.55-0.52 Suspect elevated troponin secondary to demand ischemia due to patient's acute hypoxic respiratory failure secondary to RSV Will continue to monitor on telemetry (4) Congestive heart failure Current Visit: Yes Status: Acute Assessment and Plan: Patient with elevated BNP of 2711 an elevated troponin of 0.59 with bilateral pleural effusions and mild perihilar edema on chest x-ray Discussed with cardiology on 04/08/18 who suspects secondary to volume overload due to end-stage renal disease above Suspect also due to acute hypoxic respiratory failure with RSV as stated above Echocardiogram on 04/30/15 showed LVEF of 50-55% with mild left ventricular diastolic dysfunction and mild pulmonary hypertension with RVSP at 36 mmHg and a meeting gradient 12 mmHg Repeat echocardiogram showed LVEF of 55% with mild left ventricular diastolic dysfunction in addition to moderate aortic stenosis; 23 mmHg with peak velocity of 3.08 m/s; moderate pulmonary hypertension also noted with estimated RVSP 46- 56 mmHg Will continue to monitor (5) Pleural effusion Current Visit: No Status: Acute Assessment and Plan: Patient found to have moderate left and small right pleural effusion with dependent left basilar volume loss on chest x-ray Patient also requiring supplemental oxygenation due to acute hypoxic respiratory failure CT of the chest on 04/12/18 showed left greater than right airspace disease and e ffusions demonstrating interval progression. Pulmonology consulted with recommendations for thoracentesis (6) ESRD (end stage renal disease) on dialysis Current Visit: No Status: Chronic Assessment and Plan: Serum creatinine:5.45->5.78->->5.14->5.95->7.44->5.24 GFR 11 BUN 64 Chest x-ray also shows mild perihilar edema with bilateral pleural effusions Nephrology following and appreciate recommendations (7) Hyperglycemia due to type 2 diabetes mellitus Current Visit: No Status: Acute Assessment and Plan: Coverage with sliding scale insulin (8) Anemia in ESRD (end-stage renal disease) Current Visit: No Status: Chronic Assessment and Plan: Hemoglobin stable; continue to monitor (9) Thrombocytopenia Current Visit: No Status: Chronic Assessment and Plan: Patient follows with hematology oncology as an outpatient (10) Hypothyroid Current Visit: Yes Status: Acute Assessment and Plan: Continue home dose of levothyroxine DVT Prophylaxis: SCDs - Time Spent with Patient Total time spent is greater than 50% in coordination of care (as documented) at patient's floor/unit and/or counseling patient: Internal Medicine: Result - Labs CBC & Chem 7: 04/13/18 04:51 04/13/18 04:51 Labs: Short CBC 04/13/18 Range/Units 04:51 WBC 8.8 (4.3-11.1) K/mcL Hgb 12.3 L (12.9-16.9) g/dL Hct 38.5 (37.5-50.1) % Plt Count 63 L (140-400) K/mcL BMP 04/13/18 04:51 Sodium 131 L Potassium 4.9 Chloride 92 L Carbon Dioxide 26 BUN 64 H Creatinine 5.24 H Glucose 295 H Calcium 9.3 - Impressions Impressions Chest CT 04/12/18 13:30 IMPRESSION: Left greater than right airspace disease and effusions demonstrating interval progression. Stable right lower lobe pulmonary nodules and probable multiple smaller nodules obscured by motion. Old granulomatous disease, coronary artery disease, and aortic valve disease. D/ / Tu Saldana MD / Tu Saldana MD Interpreting Provider: Tu Saldana MD - VTE Documentation of Mechanical Device: Intermittent pneumatic compression device Consult Discharge Plan - Plan Referrals: Isidra Tate, STRATEGIC INSIGHTS LEAD [Primary Care Provider] - (4) Congestive heart failure Qualifiers: Heart failure type: unspecified Qualified Code(s): I50.9 - Heart failure, unspecified (7) Hyperglycemia due to type 2 diabetes mellitus Qualifiers: Diabetes mellitus longwall foreman insulin use: with longwall foreman use Qualified Code(s): E11.65 - Type 2 diabetes mellitus with hyperglycemia; Z79.4 - longterm (current) use of insulin
--- NOTE | 2018-04-13 09:58 | Nephrology Progress Note ---
Addendum entered and electronically signed by Talat Cid MD 04/13/18 21:33: I examined this patient and discussed the medical decision-making with KENDRA Redman. I agree with the documented findings, disposition and treatment plan as described except to the extent set forth below. Original Note: Date of Encounter: 04/13/18 Time of Encounter: 09:56 - Assessment and Plan (1) ESRD (end stage renal disease) Current Visit: Yes Status: Acute HD completed yesterday. Continue renal diet Avoid nephrotoxins and renal dose. Strict I/O. (2) Pleural effusion Current Visit: No Status: Acute Per pulm,no intervention at this time. (3) Dyspnea Current Visit: Yes Status: Acute Multifactorial with positive RSV and fluid overload, HD in progress today. Pulm on board Echo showed EF 55% with moderate and moderate pulmHTN, will need cardiology followup outpatient. Continues to be on supplemental oxygen. Qualifiers: Dyspnea type: dyspnea on exertion Qualified Code(s): R06.09 - Other forms of dyspnea (4) RSV bronchitis Current Visit: Yes Status: Acute Per primary. Subjective Principal diagnosis: difficulty in breathing Interval history: Pt seen and examined resting quietly with eyes closed. No acute events overnight. Objective - Vital Signs Vital signs: Vital Signs Temp Pulse Resp BP Pulse Ox 04/13/18 07:51 97.6 F 73 18 130/62 100 04/13/18 06:00 99 04/13/18 04:00 97.0 F L 75 16 109/56 99 04/13/18 03:55 15 100 04/12/18 23:41 98.5 F 73 15 145/66 98 04/12/18 22:40 17 97 04/12/18 21:01 99 04/12/18 20:28 97.7 F 78 16 165/67 91 04/12/18 15:41 98.3 F 75 17 156/72 100 04/12/18 15:33 18 88 04/12/18 13:45 97.8 F 17 134/65 04/12/18 13:15 143/63 04/12/18 13:00 127/61 04/12/18 12:45 121/66 04/12/18 12:30 131/64 04/12/18 12:15 133/61 04/12/18 12:00 130/61 04/12/18 11:45 132/68 04/12/18 11:30 127/66 04/12/18 11:29 17 100 04/12/18 11:15 142/56 04/12/18 11:00 137/68 04/12/18 10:45 136/63 04/12/18 10:30 138/64 04/12/18 10:15 142/63 04/12/18 10:00 126/72 Intake and Output 04/12/18 04/13/18 04/13/18 23:59 07:59 15:59 Other: Weight 87.6 kg Blood Glucose* 234 280 - General Appearance General appearance: Present: well-developed, well-nourished EENT: Present: ATNC, hearing intact, vision intact Neck: Present: supple Respiratory: Present: clear Cardiology: Present: no edema, normal S1, normal S2 Dialysis Vascular Access: Arteriovenous Fistula thrill: Yes bruit: Yes Gastrointestinal: Present: normoactive bowel sounds, no tenderness, no guarding Integumentary: Present: no rash, warm and dry, erythema (bilat lower extremities.) Additional Comments: Alert to self, appears confused and drowsy. Psychiatric: Present: mood/affect appropriate, cooperative - Lab 04/13/18 04:51 04/13/18 04:51 Most recent lab results Calcium 9.3 mg/dL (8.6-10.3) 04/13/18 04:51 - VTE Documentation of Mechanical Device: Intermittent pneumatic compression device Consult Discharge Plan - Plan Referrals: Isidra Tate GAS STATION CLERK [Primary Care Provider] -
[2018-04-13] MEDS: Budesonide/Formoterol 160/4.5 1 PUFF INH IH SCH ×2 (10:02→22:22)
[2018-04-13] MEDS: Insulin LISPRO 300 UNITS/3 ML VIAL SQ SCH ×4 (10:38→23:46)
[2018-04-13] MEDS: Calcium Acetate 667 MG CAPSULE PO SCH ×3 (10:39→17:51)
[2018-04-13] MEDS: Vitamin B Complex/Vit C/Vit E 1 EACH TABLET PO SCH (10:39)
--- NOTE | 2018-04-13 12:04 | Pulmonology Progress Note ---
Date of Encounter: 04/13/18 Time of Encounter: 12:04 Assessment and Plan (1) Acute respiratory failure with hypoxia Current Visit: Yes Status: Acute This 77-year-old gentleman presented with COPD exacerbation secondary to RSV bronchitis complicated by heart failure and end-stage renal disease with noted volume overload on examination including bilateral pleural effusions which is worsened during the hospitalization. Patient is more symptomatic today and I think it is reasonable to proceed with the therapeutic thoracentesis on the left I will arrange for this to be done through interventional radiology and follow- up on the pleural fluid studies and cytology. I suspect he can be transitioned safely from IV to oral prednisone to complete a 2-3 week taper starting at 40 mg daily. Continue schedule bronchodilators and Symbicort Once he has completed 5 days of macrolide antibiotics this can be discontinued from standpoint of COPD exacerbation Tobacco cessation counseling given to the patient Call with any questions (2) Pleural effusion Current Visit: Yes Status: Acute (3) ESRD (end stage renal disease) Current Visit: Yes Status: Acute (4) Congestive heart failure Current Visit: Yes Status: Acute Qualifiers: Heart failure type: unspecified Qualified Code(s): I50.9 - Heart failure, unspecified (5) RSV bronchitis Current Visit: Yes Status: Acute Subjective Principal diagnosis: difficulty in breathing Interval history: Mr. Whitlock is Breonna still more short of breath today that he has a past few days. He was bumped up from 1 L oxygen to 3-4 L now with oxygen saturation high 80s low 90s. He denies any significant cough or sputum production at this point but says that he has chest tightness. Objective PUL Vital signs: Last Vital Signs Temp 98.1 F 04/13/18 11:56 Pulse 93 04/13/18 11:56 Resp 16 04/13/18 11:56 BP 137/51 04/13/18 11:56 Pulse Ox 95 04/13/18 11:56 General appearance: no acute distress Auscultation: bilateral: diminished breath sounds (Left greater than right), other (In general poor air movement) Cardiovascular: regular rate and rhythm Gastrointestinal: normoactive bowel sounds Extremities: no cyanosis, no edema Musculoskeletal: no deformities normal mental status, non-focal exam mood appropriate Results - Laboratory Findings CBC and BMP: 04/13/18 04:51 04/13/18 04:51 Abnormal lab findings: Abnormal lab results RBC 3.80 M/mcL (4.19-5.50) L 04/13/18 04:51 Hgb 12.3 g/dL (12.9-16.9) L 04/13/18 04:51 MCV 101.3 fL (83.0-100.0) H 04/13/18 04:51 RDW 16.7 % (11.5-14.5) H 04/13/18 04:51 Plt Count 63 K/mcL (140-400) L 04/13/18 04:51 MPV 9.2 fL (9.4-12.4) L 04/13/18 04:51 Lymphocytes # 0.2 K/mcL (0.6-4.6) L 04/10/18 09:03 Sodium 131 mEq/L (136-145) L 04/13/18 04:51 Chloride 92 mEq/L (98-107) L 04/13/18 04:51 BUN 64 mg/dL (8-23) H 04/13/18 04:51 Creatinine 5.24 mg/dL (0.70-1.30) H 04/13/18 04:51 Est GFR ( Amer) 13 (> 60) L 04/13/18 04:51 Est GFR (Non-Af Amer) 11 (> 60) L 04/13/18 04:51 Glucose 295 mg/dL (70-105) H 04/13/18 04:51 POC Glucose 234 mg/dL (70-99) H 04/12/18 20:31 Calculated Osmolality 301 (280-300) H 04/13/18 04:51 Troponin I 0.52 ng/mL (< 0.04) H* 04/09/18 15:05 B-Natriuretic Peptide 2711 pg/mL (Less than 100) H 04/08/18 13:46 RSV (PCR) DETECTED (Not Detect) A 04/08/18 17:40 - Diagnostic Findings CT scan - chest: report reviewed, image reviewed - Clinical Findings Intake & Output: Intake & Output 04/12/18 04/13/18 04/13/18 23:59 07:59 15:59 Weight 87.6 kg - VTE Documentation of Mechanical Device: Intermittent pneumatic compression device Consult Discharge Plan - Plan Referrals: Isidra Tate, OIL TANKER CAPTAIN [Primary Care Provider] -
[2018-04-13] MEDS: Azithromycin 250 MG TABLET PO SCH (12:56)
[2018-04-13 13:26] LABS: INR 1.2; Prothrombin Time 13.7 Seconds (9.4-12.1)
[2018-04-13 16:36] LABS: Appearance of Pleural Fl Clear (Clear)
[2018-04-13 17:00] LABS: Total Protein,Pleural Fluid 3.7 g/dL (No Ref Range)
[2018-04-14 03:17] LABS: Hematocrit 36.7 % (37.5-50.1); Hemoglobin 12.2 g/dL (12.9-16.9); Mean Corpuscular HGB Conc 33.2 g/dL (31.6-35.5); Mean Corpuscular Hemoglobin 33.2 pg (28.0-33.3); Mean Platelet Volume 10.2 fL (9.4-12.4); Red Blood Count 3.67 M/mcL (4.19-5.50); Red Cell Distribution Width 16.3 % (11.5-14.5)
[2018-04-14 03:18] LABS: Platelet Count 66 K/mcL (140-400)
[2018-04-14 03:37] LABS: Calcium 8.7 mg/dL (8.6-10.3); Potassium 4.8 mEq/L (3.5-5.1)
[2018-04-14] MEDS: Ipratropium/Albuterol Neb 3 ML IH SCH ×4 (04:18→22:44)
[2018-04-14] MEDS: MethylPREDNISolone 40 MG/ML VIAL IVP SCH (06:39)
[2018-04-14] MEDS ORDERED: 0.9 % Sodium Chloride 250 ML IVC PRN (07:47)
[2018-04-14] MEDS ORDERED: 0.9 % Sodium Chloride 1,000 ML PRIME SCH (08:00)
[2018-04-14] MEDS: Vitamin B Complex/Vit C/Vit E 1 EACH TABLET PO SCH (09:11)
[2018-04-14] MEDS: Calcium Acetate 667 MG CAPSULE PO SCH ×3 (09:11→17:40)
[2018-04-14] MEDS: Insulin LISPRO 300 UNITS/3 ML VIAL SQ SCH ×4 (09:12→20:27)
[2018-04-14] MEDS: Budesonide/Formoterol 160/4.5 1 PUFF INH IH SCH ×2 (10:01→22:44)
[2018-04-14] MEDS ORDERED: 0.9 % Sodium Chloride 1,000 ML ONE (10:13)
--- NOTE | 2018-04-14 10:22 | Nephrology Progress Note ---
Addendum entered and electronically signed by Talat Cid MD 04/14/18 21:40: I examined this patient and discussed the medical decision-making with KENDRA Redman. I agree with the documented findings, disposition and treatment plan as described except to the extent set forth below. Patient was seen on dialysis. Original Note: Date of Encounter: 04/14/18 Time of Encounter: 10:20 - Assessment and Plan (1) ESRD (end stage renal disease) Current Visit: Yes Status: Acute HD ordered for today Continue renal diet Avoid nephrotoxins and renal dose. Strict I/O. (2) Pleural effusion Current Visit: No Status: Acute s/p 1.5 liter fluid removal from Thoracentesis. (3) Dyspnea Current Visit: Yes Status: Acute Multifactorial with positive RSV and fluid overload, HD in progress today. Pulm on board Echo showed EF 55% with moderate and moderate pulmHTN, will need cardiology followup outpatient. Continues to be on supplemental oxygen. Qualifiers: Dyspnea type: dyspnea on exertion Qualified Code(s): R06.09 - Other forms of dyspnea (4) RSV bronchitis Current Visit: Yes Status: Acute Per primary. Subjective Principal diagnosis: difficulty in breathing Interval history: Pt seen and examined sitting up in chair. No acute events overnight. Pt is very confused this am. He removed one of his gold rings and placed on table and said it was a girls that was here earlier. Gold ring was given to DEON Reyes to place in patient bin. Objective - Vital Signs Vital signs: Vital Signs Temp Pulse Resp BP Pulse Ox 04/14/18 07:09 98.7 F 81 18 113/46 92 04/14/18 04:31 97.9 F 74 17 115/52 100 04/14/18 04:18 18 93 04/14/18 00:37 98.1 F 77 17 120/48 93 04/13/18 23:45 92 04/13/18 22:22 16 93 04/13/18 20:51 97.9 F 73 17 135/61 95 04/13/18 16:14 97.6 F 69 16 117/55 99 04/13/18 15:43 16 98 04/13/18 15:40 95 04/13/18 12:42 95 04/13/18 11:56 98.1 F 93 16 137/51 95 Intake and Output 04/13/18 04/14/18 04/14/18 23:59 07:59 15:59 Intake Total 240 / 240 Balance 240 / 240 Intake: Oral 240 / 240 Other: Meal Dinner Percent of Meal Consumed 70% Weight 88.1 kg Blood Glucose* 227 159 Patient Weight 04/14/18 23:59 Weight 88.1 kg - General Appearance General appearance: Present: well-developed, well-nourished EENT: Present: ATNC, hearing intact, vision intact Neck: Present: supple Respiratory: Present: clear Cardiology: Present: edema (Trace bilat lower extremity edema. ), normal S1, normal S2 Dialysis Vascular Access: Arteriovenous Fistula thrill: Yes bruit: Yes Gastrointestinal: Present: normoactive bowel sounds, no tenderness, no guarding Integumentary: Present: no rash, warm and dry, erythema (noted to bilat lower extremities.) Neurologic: Present: confused Psychiatric: Present: mood/affect appropriate, cooperative - Lab 04/14/18 02:38 04/14/18 02:38 Most recent lab results Calcium 8.7 mg/dL (8.6-10.3) 04/14/18 02:38 - VTE Documentation of Mechanical Device: Intermittent pneumatic compression device Consult Discharge Plan - Plan Referrals: Isidra Tate COLLAR STARCHER [Primary Care Provider] -
--- NOTE | 2018-04-14 14:03 | Discharge Summary ---
- NOTES TO OUTPATIENT PROVIDER Notes to Outpatient Provider: Patient was hospitalized here with acute congestive heart failure and shortness of breath. Patient also has history of COPD and is a chronic smoker and was also diagnosed with acute respiratory failure and hypoxia related to COPD exacerbation. His respiratory infection curran el was positive for RSV. Patient was symptomatically treated for this. He received bronchodilators, steroids and O2 supplementation. He also received dialysis for volume management here. Patient also has bilateral pleural effusions and underwent left-sided thoracentesis with removal of 1.5 L straw- colored fluid yesterday which appears transudative. He is since then improved. He is currently continuing to require O2 supplementation at 3 L per minute. This is likely due to his underlying COPD. He is stable to be discharged home today with home health, home oxygen and steroid taper. Orders not resulted at time of discharge: Pending orders 04/13/18 14:05 Albumin,Body Fluid Routine 04/15/18 04:00 BMP [Basic Metabolic Panel] AM 0400 Complete Blood Count w/o Diff [HEME] AM 0400 04/16/18 04:00 BMP [Basic Metabolic Panel] AM 0400 Complete Blood Count w/o Diff [HEME] AM 0400 04/17/18 04:00 BMP [Basic Metabolic Panel] AM 0400 Complete Blood Count w/o Diff [HEME] AM 0400 Date of Encounter: 04/14/18 Time of Encounter: 11:35 - Discharge Diagnosis (1) Acute respiratory failure with hypoxia Priority: Primary Status: Acute (2) Congestive heart failure Priority: Secondary Status: Acute Qualifiers: Heart failure type: unspecified Qualified Code(s): I50.9 - Heart failure, unspecified (3) Pleural effusion Priority: Secondary Status: Acute (4) ESRD (end stage renal disease) on dialysis Priority: Secondary Status: Chronic (5) Anemia in ESRD (end-stage renal disease) Priority: Secondary Status: Chronic (6) Hyperglycemia due to type 2 diabetes mellitus Priority: Secondary Status: Acute Qualifiers: Diabetes mellitus residential insulin use: with long term care administrator use Qualified Code(s): E11.65 - Type 2 diabetes mellitus with hyperglycemia; Z79.4 - intermediate (current) use of insulin (7) Thrombocytopenia Priority: Secondary Status: Chronic (8) Elevated troponin Priority: Secondary Status: Acute (9) RSV bronchitis Priority: Secondary Status: Acute (10) Hypothyroid Priority: Secondary Status: Acute Qualifiers: Hypothyroidism type: other Qualified Code(s): E03.8 - Other specified hypothyroidism (11) COPD (chronic obstructive pulmonary disease) Priority: Secondary Status: Suspected Qualifiers: COPD type: COPD with acute exacerbation Qualified Code(s): J44.1 - Chronic obstructive pulmonary disease with (acute) exacerbation Hospital course: Mr. Whitlock is a 77 year old male Patient with a history of ESRD on hemodialysis, congestive heart failure, COPD was hospitalized here with acute congestive heart failure and shortness of breath. Patient also has history of COPD and is a chronic smoker and was also diagnosed with acute respiratory failure and hypoxia related to COPD exacerbation. His respiratory infection panel was positive for RSV. Patient was symptomatically treated for this. He received bronchodilators, steroids and O2 supplementation. He also received dialysis for volume management here. Patient also has bilateral pleural effusions and underwent left-sided thoracentesis with removal of 1.5 L straw-colored fluid yesterday which appears transudative. He is since then improved. He is currently continuing to require O2 supplementation at 3 L per minute. This is likely due to his underlying COPD. He is stable to be discharged home today with home health, home oxygen and steroid taper. Discharge discussed with: patient, case management - Time Spent with Patient Total time spent providing and/or coordinating discharge services: Greater than 30 minutes (45 min) - Discharge Medications Prescriptions: Albuterol Sulfate [Albuterol Inhaler] 2 puff IH Q4HR PRN #1 hfa.aer.ad PRN Reason: Shortness Of Breath Azithromycin [Zithromax] 500 mg PO Q24H #2 tablet Budesonide/Formoterol 160/4.5 [Symbicort 160/4.5] 2 puff IH BIDR #1 inh predniSONE [PredniSONE] 10 mg PO DAILY 12 Days tablet Home Medications: Folic Acid/Vit Bcomp,C [Renal-Edel Tablet] 0.8 mg PO DAILY 10/29/15 [History] Simvastatin [Zocor] 40 mg PO HS 10/29/15 [History] Calcium Acetate [Phos-LO] 1,334 mg PO TIDWM 10/15/16 [History] Docusate Sodium [Stool Softener] 200 mg PO DAILY 01/15/17 [History] Vitamin B Complex [B Complex] 1 each PO DAILY 01/15/17 [History] Levothyroxine [Synthroid] 112 mcg PO 0630 04/16/17 [History] Insulin ASPART [NovoLOG] 0 unit SQ TID 04/08/18 [History] Albuterol Sulfate [Albuterol Inhaler] 2 puff IH Q4HR PRN #1 hfa.aer.ad 04/14/18 [Rx] Azithromycin [Zithromax] 500 mg PO Q24H #2 tablet 04/14/18 [Rx] Budesonide/Formoterol 160/4.5 [Symbicort 160/4.5] 2 puff IH BIDR #1 inh 04/14/18 [Rx] predniSONE [PredniSONE] 10 mg PO DAILY 12 Days tablet 04/14/18 [Rx] Allergies/Adverse Reactions: Allergy/AdvReac Type Severity Reaction Status Date / Time Penicillins Allergy Rash Verified 02/02/18 09:21 Sulfa (Sulfonamide Allergy Rash Verified 02/02/18 09:21 Antibiotics) acetaminophen [From Percocet] AdvReac Hallucinati Verified 02/02/18 09:21 ng oxycodone [From Percocet] AdvReac Hallucinati Verified 02/02/18 09:21 ng Date of admission: 04/08/18 16:57 Primary care physician: Isidra Tate CNP Consults: 04/08/18 17:07 Consult to Nephrology [CONS] Routine Consulting Provider: Kidney Carina/NITHYA/BRENDA/YARED Reason for Consult: ESRD Call Completed: Yes 04/08/18 18:00 Consult to Dialysis [CONS] ONCE 04/08/18 18:39 Consult to Pulmonology [CONS] Routine Consulting Provider: Pulm Crit Care [facility] Sleep Carina Reason for Consult: Pleural effusion Call Completed: No 04/09/18 08:20 Consult to Dialysis [CONS] Stat 04/12/18 09:00 Consult to Dialysis [CONS] ONCE 04/14/18 08:00 Consult to Dialysis [CONS] ONCE Discharging clinician: Henny Pollard Anticipated date of discharge: 04/14/18 - Constitutional Vitals: Temp Pulse Resp BP Pulse Ox 98.7 F 81 17 106/49 92 04/14/18 10:20 04/14/18 07:09 04/14/18 10:20 04/14/18 13:05 04/14/18 07:09 General appearance: Present: A&O X 3, no acute distress, answers questions appropriately Exam: . - Respiratory Respiratory exam: Present: prolonged expiratory phase, wheezes. Absent: accessory muscle use, rales, rhonchi - Cardiovascular Cardiovascular exam: Present: RRR, +S1, +S2. Absent: diastolic murmur, gallop, rubs, systolic murmur - Patient Status Disposition: Home Health Service Condition: Good Functional capacity at discharge: uses cane/walker Overall status at discharge: patient is progressing back to baseline - Discharge Instructions Instructions: Acute Respiratory Distress Syndrome (DC), Heart Failure (DC) Follow Up With: Isidra Tate CNP [Primary Care Provider] - (in 1-2 weeks) Shannan Hopkins MD [Partnered Physician] - (in 1-2 weeks) Forms: ED Satisfaction Letter - Diet and Activity Activity: as per physical therapy Diet: low fat, low cholesterol, low salt diet, other (Fluid restriction to 1.5L/24 hr) - VTE Documentation of Mechanical Device: Intermittent pneumatic compression device
--- NOTE | 2018-04-14 14:15 | Physician Discharge Referral ---
Home Health/Hosp Referral Info Transfer to: Home Health Provider in Charge Post Discharge: PCP - Diagnosis (1) Acute respiratory failure with hypoxia Priority: Primary Status: Acute (2) Congestive heart failure Priority: Secondary Status: Acute (3) Pleural effusion Priority: Secondary Status: Acute (4) ESRD (end stage renal disease) on dialysis Priority: Secondary Status: Chronic (5) Anemia in ESRD (end-stage renal disease) Priority: Secondary Status: Chronic (6) Hyperglycemia due to type 2 diabetes mellitus Priority: Secondary Status: Acute (7) Thrombocytopenia Priority: Secondary Status: Chronic (8) Elevated troponin Priority: Secondary Status: Acute (9) RSV bronchitis Priority: Secondary Status: Acute (10) Hypothyroid Priority: Secondary Status: Acute (11) COPD (chronic obstructive pulmonary disease) Priority: Secondary Status: Suspected - Respiratory Orders Oxygen / L per min (3) Smoking Cessation: Smoking cessation has been advised. For more information, call the [place] [employer] Quit Line at 4-030-ILBJ-NOW. - Diet/Nutrition Diet/Nutrition Orders: Cardiac Diet/Nutrition: List: Fluid restriction to 1.5 L per day - Activity Activity Orders: Walker - Services Needed Following services are medically necessary services: Nursing, Physical Therapy, Occupational Therapy - Transfer Medications Prescriptions: Albuterol Sulfate [Albuterol Inhaler] 2 puff IH Q4HR PRN #1 hfa.aer.ad PRN Reason: Shortness Of Breath Azithromycin [Zithromax] 500 mg PO Q24H #2 tablet Budesonide/Formoterol 160/4.5 [Symbicort 160/4.5] 2 puff IH BIDR #1 inh predniSONE [PredniSONE] 10 mg PO DAILY 12 Days tablet Home Medications: Folic Acid/Vit Bcomp,C [Renal-Edel Tablet] 0.8 mg PO DAILY 10/29/15 [History] Simvastatin [Zocor] 40 mg PO HS 10/29/15 [History] Calcium Acetate [Phos-LO] 1,334 mg PO TIDWM 10/15/16 [History] Docusate Sodium [Stool Softener] 200 mg PO DAILY 01/15/17 [History] Vitamin B Complex [B Complex] 1 each PO DAILY 01/15/17 [History] Levothyroxine [Synthroid] 112 mcg PO 0630 04/16/17 [History] Insulin ASPART [NovoLOG] 0 unit SQ TID 04/08/18 [History] Albuterol Sulfate [Albuterol Inhaler] 2 puff IH Q4HR PRN #1 hfa.aer.ad 04/14/18 [Rx] Azithromycin [Zithromax] 500 mg PO Q24H #2 tablet 04/14/18 [Rx] Budesonide/Formoterol 160/4.5 [Symbicort 160/4.5] 2 puff IH BIDR #1 inh 04/14/18 [Rx] predniSONE [PredniSONE] 10 mg PO DAILY 12 Days tablet 04/14/18 [Rx] Allergies/Adverse Reactions: Allergy/AdvReac Type Severity Reaction Status Date / Time Penicillins Allergy Rash Verified 02/02/18 09:21 Sulfa (Sulfonamide Allergy Rash Verified 02/02/18 09:21 Antibiotics) acetaminophen [From Percocet] AdvReac Hallucinati Verified 02/02/18 09:21 ng oxycodone [From Percocet] AdvReac Hallucinati Verified 02/02/18 09:21 ng Certification: Further, I certify that my clinical findings support that this patient is homebound (i.e. absences from home require considerable and taxing effort and are for medical reasons or holiness services or infrequently or short duration when for other reasons) because: Homebound Reason: Patient requires assistance of a person or device to safely leave home Attestation: My signature below is to certify that this patient is under my care and that I, or nurse practitioner, or a physician's music assistant working with me, has a [id number] encounter with this patient.
[2018-04-14] MEDS: predniSONE 20 MG TABLET PO SCH (14:30)
[2018-04-14] MEDS: Azithromycin 250 MG TABLET PO SCH (14:30)
[2018-04-15] MEDS: Ipratropium/Albuterol Neb 3 ML IH SCH ×2 (03:56→10:51)
[2018-04-15 05:53] LABS: Hemoglobin 12.7 g/dL (12.9-16.9); Immature Platelets 1.3 % (1.1-6.1); Mean Corpuscular HGB Conc 31.8 g/dL (31.6-35.5); Mean Corpuscular Hemoglobin 32.6 pg (28.0-33.3); Mean Corpuscular Volume 102.8 fL (83.0-100.0); Mean Platelet Volume 9.6 fL (9.4-12.4); Red Blood Count 3.89 M/mcL (4.19-5.50); Red Cell Distribution Width 16.7 % (11.5-14.5)
[2018-04-15 06:45] LABS: Calcium 8.5 mg/dL (8.6-10.3); Potassium 4.7 mEq/L (3.5-5.1)
[2018-04-15 07:07] VITALS: BP 137/63
[2018-04-15] MEDS: Calcium Acetate 667 MG CAPSULE PO SCH (08:09)
[2018-04-15] MEDS: predniSONE 20 MG TABLET PO SCH (08:09)
[2018-04-15] MEDS: Vitamin B Complex/Vit C/Vit E 1 EACH TABLET PO SCH (08:09)
[2018-04-15] MEDS: Insulin LISPRO 300 UNITS/3 ML VIAL SQ SCH (08:10)
--- NOTE | 2018-04-15 10:12 | Nephrology Progress Note ---
Date of Encounter: 04/15/18 Time of Encounter: 10:09 - Assessment and Plan (1) ESRD (end stage renal disease) Current Visit: Yes Status: Acute HD completed yesterday, plan for HD [facility] at [facility]. Continue renal diet Avoid nephrotoxins and renal dose. Strict I/O. (2) Pleural effusion Current Visit: No Status: Acute s/p 1.5 liter fluid removal from Thoracentesis. (3) Dyspnea Current Visit: Yes Status: Acute Multifactorial with positive RSV and fluid overload, HD in progress today. Pulm on board Echo showed EF 55% with moderate and moderate pulmHTN, will need cardiology followup outpatient. Continues to be on supplemental oxygen. Qualifiers: Dyspnea type: dyspnea on exertion Qualified Code(s): R06.09 - Other forms of dyspnea (4) RSV bronchitis Current Visit: Yes Status: Acute Per primary. Subjective Principal diagnosis: difficulty in breathing Interval history: Pt seen and examined sitting up in chair. No acute events overnight. Pt is still confused this am. He did tell me that his is coming to pick him up this morning to go home. Denies chest pain or shortness of breath. Denies nausea, vomiting, or diarrhea. Objective - Vital Signs Vital signs: Vital Signs Temp Pulse Resp BP Pulse Ox 04/15/18 06:58 98.2 F 84 18 137/63 96 04/15/18 04:18 98.7 F 88 18 144/68 95 04/15/18 03:56 19 91 04/14/18 23:31 99.5 F 80 18 133/61 92 04/14/18 22:44 17 91 04/14/18 19:09 98.9 F 86 18 130/66 90 04/14/18 16:24 98.7 F 80 18 104/46 97 04/14/18 15:39 18 75 04/14/18 13:45 98.3 F 17 109/52 04/14/18 13:20 105/51 04/14/18 13:05 106/49 04/14/18 12:50 101/48 04/14/18 12:35 102/53 04/14/18 12:20 107/50 04/14/18 12:05 110/52 04/14/18 11:50 117/55 04/14/18 11:35 114/55 04/14/18 11:20 110/57 04/14/18 11:05 114/57 04/14/18 10:50 114/55 04/14/18 10:35 118/52 04/14/18 10:20 98.7 F 17 122/52 Intake and Output 04/14/18 04/15/18 04/15/18 23:59 07:59 15:59 Intake Total 280 / 280 Balance 280 / 280 Intake: Oral 280 / 280 Other: Meal Breakfast Percent of Meal Consumed 70% Weight 84.5 kg Blood Glucose* 255 200 Patient Weight 04/15/18 23:59 Weight 84.5 kg - General Appearance General appearance: Present: chronically ill, fatigue, frail EENT: Present: ATNC, hearing intact, vision intact Neck: Present: supple Respiratory: Present: clear Cardiology: Present: no edema, normal S1, normal S2 Dialysis Vascular Access: Arteriovenous Fistula thrill: Yes bruit: Yes Gastrointestinal: Present: normoactive bowel sounds, no tenderness, no guarding Integumentary: Present: no rash, warm and dry Neurologic: Present: alert and oriented x3 Musculoskeletal: Present: no deformities Psychiatric: Present: mood/affect appropriate, cooperative - Lab 04/15/18 05:21 04/15/18 05:21 Most recent lab results Calcium 8.5 mg/dL (8.6-10.3) L 04/15/18 05:21 - VTE Documentation of Mechanical Device: Intermittent pneumatic compression device Consult Discharge Plan - Plan Instructions: Heart Failure (DC), Acute Respiratory Distress Syndrome (DC) Referrals: Isidra Tate CNP [Primary Care Provider] - 04/26/18 1:00 pm (in 1-2 weeks) Shannan Hopkins MD [Partnered Physician] - (in 1-2 weeks Web request 04/14/2018) Prescriptions: Albuterol Sulfate [Albuterol Inhaler] 2 puff IH Q4HR PRN #1 hfa.aer.ad PRN Reason: Shortness Of Breath Azithromycin [Zithromax] 500 mg PO Q24H #2 tablet Budesonide/Formoterol 160/4.5 [Symbicort 160/4.5] 2 puff IH BIDR #1 inh predniSONE [PredniSONE] 10 mg PO DAILY 12 Days tablet
[2018-04-15] MEDS: Budesonide/Formoterol 160/4.5 1 PUFF INH IH SCH (10:51)
[2018-04-16 15:17] LABS: Fluid Source for Albumin PLEURAL FLUID
== END 2018-04-15 11:45 | disposition home health service (06) | DRG 291 ==
LOC: EMEROOARM 13:22 → 2ANU 13:22 → SUATTDRO 16:57
PROVIDERS: ADMIT Hospitalist; ATTEND Internal Medicine